=== PATIENT | female | born 1990 | race Caucasian/White ===

== ENCOUNTER 2024-06-30 21:11 | Observation (INO) | payer OTHER, SELFPAY ==
[2024-06-30] VITALS (7 sets, daily range): BP systolic 145–194; BP diastolic 112–137; BMI 21.5; BMI 19.9
[2024-06-30 17:09] LABS: ALT (SGPT) 37 U/L (0-35); AST (SGOT) 91 U/L (14-36); Albumin 4.4 g/dl (3.5-5.0); Alkaline Phosphatase 109 U/L (38-126); Blood Urea Nitrogen 4 mg/dl (7-17); Calcium 9.5 mg/dl (8.4-10.2); Carbon Dioxide 29 mmol/L (22-30); Chloride 93 mmol/L (98-107); Estimated Creatinine Clearance 85 ml/min; Glucose 141 mg/dl (70-99); Potassium 2.6 mmol/L (3.5-5.1); Sodium 130 mmol/L (135-145); Total Bilirubin 1.5 mg/dl (0.2-1.3); Total Protein 6.9 g/dl (6.3-8.2); eGFR > 60.00
--- NOTE | 2024-06-30 17:15 | ED.GENMED ---
History of Present Illness
General
Chief Complaint: Seizure
Time Seen by Provider: 06/30/24 17:00
History of Present Illness
History of Present Illness:
HPI: The patient presents due to seizure-like activity x 2 as she was picking up her daughter. She states she had a seizure approximately 6 months ago because 'her levels were off'. She states she has not used benzos in about 6 months. She states
that she does not drink alcohol much but when I clarified this with her she states she did not drink yesterday or today but drink '2 beers' each of the preceding 2 days.
EXAM:
GENERAL: Well appearing in no distress
HEENT: Moist oral mucosa
CARDIOVASCULAR: No murmurs, tachycardic heart rate, regular rhythm, No chest wall tenderness
PULMONARY: No respiratory distress, breath sounds are clear and equal
ABDOMEN: Soft with no peritoneal signs, no tenderness
NEUROLOGIC: Excellent strength all extremities, no coordination deficits, somewhat tremulous
PSYCHIATRIC: Appropriate mental status, normal insight and judgement
EXTREMITIES: Nontender, no edema, moves all extremities equally
SKIN: No rash, no lesions
TIME OF INITIAL ENCOUNTER: 5 PM
NUMBER AND COMPLEXITY OF PROBLEMS ADDRESSED AT THE ENCOUNTER
� Chronic conditions affecting care: Has had seizure in the past
� Acute Exacerbation and/or Progression of Chronic Illness: This is an acute but recurring problem
� Differential Diagnosis includes: Alcohol withdrawal seizure, benzo withdrawal seizure, seizure disorder exacerbation, electrolyte abnormality
AMOUNT AND/OR COMPLEXITY OF DATA TO BE REVIEWED AND ANALYZED
� I performed an independent evaluation of and my interpretation is:
EKG: Sinus 129, QTc [address]:
X-rays:
Laboratory Studies: The patient's potassium was 2.6, total bili, AST and ALT are all slightly elevated
Other:
� Review of other/old records: The patient had a seizure in 2021 and at that time head CT was negative
� Clinical information was obtained by an independent historian: EMS
� Prescriptions/Medications Considered but not given:
� Further testing considered but not performed: Considered CT imaging of the brain however the patient had CT imaging in the setting of the seizure 2 years ago which was unremarkable
RISK OF COMPLICATIONS AND/OR MORBIDITY OR MORTALITY OF PATIENT MANAGEMENT
� Social determinants of health affecting care:
� Discussion with other providers: I discussed case with Dr. Domo Pfeiffer as patient strongly prefers outpatient management. However after discussion with him, he recommends the patient stay in the hospital. I also notified to
Dr. Baires for admission.
� Escalation of care including admission/observation vs risk of discharge considered: Given initial tachycardia along with tremulous appearance, IV fluids and benzos were ordered. Hypokalemia noted�ordered IV and oral potassium.
Heart rate has somewhat improved but still remains around 120 after benzos given. She overall feels improved. Suspect alcohol withdrawal seizure however the patient denies any significant use of alcohol recently.
Past History
Past History
ED Past Medical History: HTN, Seizures (1 previous seizure) and Psychiatric (anxiety, depression); Negative IDDM or NIDDM
ED Past Surgical History: and Other (Breast augmentation, )
Social History
Tobacco: Former smoker
Alcohol: Occasional
Drug: None
Personal: Single
Living: with family
Phy Exam
Physical Exam
Physical Exam:
See HPI
Course
Orders/Labs/Results
Orders:
Orders
06/30/24 16:40
Electrocardiogram (*1) Urgent
Reason for Study: QTc Monitoring
EKG- Treatment ONCE
06/30/24 16:41
Alcohol Urgent
Complete Blood Count/With Diff Urgent
Comprehensive Metabolic Panel Urgent
Magnesium Urgent
Comment: ADD ON
06/30/24 17:13
Potassium Chloride Powder [Klor-Con] 20 meq PO NOW STA
06/30/24 17:14
0.9% Sodium Chloride 1000 ml [Nss] 1,000 ml IV BOLUS
Lorazepam [Ativan] 1 mg IV NOW STA
06/30/24 17:15
Add On- LAB Urgent
Tests Added?: alcohol
Urine Drug Abuse Screen Urgent
Date Specimen was Collected: 06/30/24
Time Specimen was Collected: 18:45
06/30/24 17:20
Potassium Chloride [KCl] 40 meq 0.9% Sodium Chloride 250 ml [Nss] 250 ml IV NOW
06/30/24 17:25
Add On- LAB Urgent
Tests Added?: magnesium
06/30/24 18:56
Lorazepam [Ativan] 1 mg IV NOW STA
Abnormal Lab Results
06/30/24
16:41
RBC 3.70 L 10^6/uL
(4.20-5.40)
MCV 100.0 H fL
(81.0-99.0)
MCH 37.3 H pg
(27.0-31.0)
MCHC 37.3 H g/dL
(33.0-37.0)
RDW 10.7 L %
(11.5-14.5)
Plt Count 124 L 10^3/uL
(130-400)
Absolute Lymphs (auto) 0.3 L 10^3/uL
(1.2-3.4)
Absolute Monos (auto) 0.7 H 10^3/uL
(0.1-0.6)
Neutrophils % 85.6 H %
(42.2-75.2)
Lymphocytes % 4.1 L %
(20.5-51.1)
Sodium 130 L mmol/L
(135-145)
Potassium 2.6 L* mmol/L
(3.5-5.1)
Chloride 93 L mmol/L
(98-107)
BUN 4 L mg/dl
(7-17)
Glucose 141 H mg/dl
(70-99)
Total Bilirubin 1.5 H mg/dl
(0.2-1.3)
AST 91 H U/L
(14-36)
ALT 37 H U/L
(0-35)
06/30/24 16:41
06/30/24 16:41
Vital Signs
Initial and Last Documented VS:
Initial Vital Signs
Temp Pulse Resp BP Pulse Ox
98.3 F 143 22 182/128 96
06/30/24 16:32 06/30/24 16:32 06/30/24 16:32 06/30/24 16:32 06/30/24 16:32
Last Documented Vital Signs
Temp Pulse Resp BP Pulse Ox
98.3 F 122 15 171/126 98
06/30/24 16:32 06/30/24 18:52 06/30/24 18:52 06/30/24 18:00 06/30/24 18:15
*Critical Care Note
Total Time (30-74mins, 75-104mins- exclusive of procedures): Not Applicable
ED Attending Note
-
Portions of this chart may have been created with voice recognition software.� Occasional wrong word or��sound alike� substitutions may have occurred due to the inherent limitations of voice recognition software.
Discharge Plan
Departure
Patient Disposition: Admit
Date of Disposition: 06/30/24
Time of Disposition: 19:58
Presentation/result/management discussed w/ accepting MD/DO: Hospitalist
Discharge Problem:
Seizure
Prescriptions:
No Action
norethindrone-e.estradiol-iron [Sera Fe 1.5/30 (28)] 1.5 mg-30 mcg (21)/75 mg (7) Tablet
1 tab PO DAILY
Referrals:
NONE,* [Family Provider] -
Interventions
Interventions:
*General Assessment Last Done: 06/30/24 16:55
*Neglect/Abuse Screening Last Done: 06/30/24 16:55
ED- Fall Risk Assessment Last Done: 06/30/24 16:55
ED- Cardiac Assessment Last Done: 06/30/24 16:55
ED- Neurological Assessment Last Done: 06/30/24 16:55
ED- Pulmonary Assessment Last Done: 06/30/24 16:55
Discharge Date and Time
Print Language: BRITISH
[2024-06-30] MEDS: KLOR-CON 20 MEQ PO (17:22)
[2024-06-30] MEDS: NSS 1000 IV (17:22)
[2024-06-30] MEDS: ATIVAN 1 MG IV ×3 (17:22→22:48)
[2024-06-30] MEDS: KCL 270 MEQ IV (17:28)
[2024-06-30 18:08] LABS: % Basophils 0.4 % (0-2); % Eosinophils 0.3 % (0-6); % Immature Granulocytes 0.4 % (0-0.5); % Lymphocytes 4.1 % (20.5-51.1); % Monocytes 9.2 % (1.7-9.3); % Neutrophils 85.6 % (42.2-75.2); Absolute Lymphocytes 0.3 10^3/uL (1.2-3.4); Absolute Monocytes 0.7 10^3/uL (0.1-0.6); Hemoglobin 13.8 g/dL (12.0-16.0); Mean Corp Hgb Conc. 37.3 g/dL (33.0-37.0); Mean Corpuscular Hgb 37.3 pg (27.0-31.0); Mean Platelet Volume 9.8 fL (7.4-10.4); Nucleated Red Blood Cells % 0 %; Platelet Count 124 10^3/uL (130-400); Red Cell Dist. Width 10.7 % (11.5-14.5); White Blood Cell Count 7.1 10^3/uL (4.8-10.8)
[2024-06-30 18:12] LABS: Alcohol None Detected; Magnesium 1.8 mg/dl (1.6-2.3)
--- NOTE | 2024-06-30 20:34 | HPS.HSE ---
Family Physician
-
Family Physician: * NONE
Chief Complaint
-
seizure
History of Present Illness
33-year-old female past medical history of seizures, anxiety/depression, ADHD, presenting with seizure-like activity twice as she was picking up her daughter. She states that she was washing the dishes when she felt weak and then went into the
bathroom to take a shower and had to sit down. Later when she was picking up her child from school she was witnessed to have 2 syncopal episodes first 1 lasting a minute and the second one lasting on 20 seconds. She is not sure if shaking
movements were noted. She denies any symptoms currently. She denies headache, numbness or tingling, focal weakness, blurry vision.
She has been having profuse watery diarrhea for the past 3 days. She had an episode of vomiting today. She denies any fevers or chills. She denies any abdominal pain. Denies eating any restaurant food or food from outside.
She drinks 1-2 drinks of beer or wine usually during the weekends. She does vape sometimes. She denies any other drugs.
Patient had her first seizure 2 years ago and was recommended to start antiepileptic treatment which she started but she did not feel good on the medicine so stopped taking it. She had another seizure a year ago and states that antiepileptic
therapy was recommended but she had never started it. She was also taking Klonopin for anxiety but she stopped taking this a year ago.
No family history of seizures.
Medical History
Past Medical History
Past Medical History: Reports Other ( seizures, anxiety/depression, ADHD)
Past Surgical History: Reports Other (Breast augmentation, ,)
Social History
Tobacco: Vaping
Alcohol: Occasional
Drug: None
Family History
Family History: Not pertinent
Allergies / Home Medications
Allergies reflects when Allergies were last updated in [facility].
Home Medications with original date entered in [facility]
Allergy/Medication List:
Allergies
Allergy/AdvReac Type Severity Reaction Status Date / Time
No Known Allergies Allergy Verified 09/27/23 18:35
Home Medications
norethindrone 1.5 mg-ethinyl estradiol 30 mcg(21)/iron 75 mg(7) tablet (Sera Fe 1.5/30 (28)) 1 tab PO DAILY 06/30/24
Review of Systems
-
History Source: Patient
A 12 point ROS was completed and negative except as noted: Yes
Constitutional: Reports No Symptoms
EENT: Reports No Symptoms
Respiratory: Reports No Symptoms
Cardiac: Reports No Symptoms
Abdomen/GI: Reports See HPI
: Reports No Symptoms
Musculoskeletal: Reports No Symptoms
Skin: Reports No Symptoms
Neurological: Reports See HPI
Endocrine: Reports No Symptoms
Hematologic/Lymphatic: Reports No Symptoms
Psych: Reports No Symptoms
Physical Exam
Vital Signs
Vital Signs
Temp Pulse Resp BP Pulse Ox
98.3 F 122 15 171/126 98
06/30/24 16:32 06/30/24 18:52 06/30/24 18:52 06/30/24 18:00 06/30/24 18:15
Physical Exam
General: Well Developed, Well Nourished and No Apparent Distress
HEENT: NormoCephalic, Moist mucous membranes and Atraumatic
Respiratory: Clear
Cardiac: S1/S2 and Regular Rhythm; No Murmur or Rub
GI: Soft, Non Tender, Non Distended and Normal Bowel Sounds; No Organomegaly
Rectal: Deferred by Provider
Musculoskeletal: No Clubbing, No Cyanosis and No Edema
Skin: No Rash
Neuro: Nonfocal/grossly intact
Laboratory Results
-
06/30/24 16:41
06/30/24 16:41
Laboratory Results
Total Bilirubin 1.5 mg/dl (0.2-1.3) H 06/30/24 16:41
AST 91 U/L (14-36) H 06/30/24 16:41
ALT 37 U/L (0-35) H 06/30/24 16:41
Alkaline Phosphatase 109 U/L (38-126) 06/30/24 16:41
Data Reviewed
-
Lab Data: Labs Reviewed by me
Old Records: Reviewed
Impression/Plan
-
IMPRESSION:
PLAN:
# Recurrent seizures
-Ativan, IV fluids given
-Needs to start antiepileptic treatment that she would be compliant with
-UDS pending
-Neurology consulted
# Hypokalemia secondary to severe acute diarrhea
-IV potassium repletion
-Magnesium level normal
# QTc prolongation secondary to hypokalemia
-QTc 570
-Monitor with potassium repletion
# Acute diarrhea
-Seems to be improving
-Check stool studies, C. difficile, diarrhea if recurrent
# Mild transaminitis likely secondary to alcohol
-monitor
Alcohol user
-Doubt to be cause of seizures
-Alcohol level pending
-No signs of withdrawal
Vaping history
Full code
DVT prophylaxis�heparin
Regular diet
[2024-06-30 21:23] LABS: Amphetamines Positive (Negative); Barbiturates Negative (Negative); Benzodiazepines Negative (Negative); Buprenorphine Negative (Negative); Cocaine Negative (Negative); Marijuana Negative (Negative); Methadone Negative (Negative); Methamphetamines Negative (Negative); Opiates Negative (Negative); Phencyclidine Negative (Negative); Tricyclic Antidepressants Negative (Negative)
[2024-06-30 21:34] LABS: Fentanyl, Urine Negative (Negative)
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
[2024-06-30] MEDS: NSS (PRESERVATIVE FREE) 0.5 ML IV (22:47)
[2024-06-30] MEDS: FLUSH (NSS) 1 FLUSH IV (22:48)
[2024-06-30] MEDS: NICODERM TRANSDERMAL 14 MG TRANSDERM (23:08)
[2024-07-01 00:38] VITALS: BP 180/116
[2024-07-01 00:44] VITALS: BP 152/105
[2024-07-01] MEDS: ATIVAN 1 MG PO ×2 (00:46→03:05)
[2024-07-01 03:03] VITALS: BP 146/100
--- NOTE | 2024-07-01 05:17 | PTCARENOTE ---
Throughout shift, pt removed monitor and storage bin tender. This RN informed pt of importance of monitor. Pt stated multiple times, 'I will be leaving as soon as someone answers me', 'I will just have the doctor call me' and 'I will be leaving around 4, 7 or
9'. Pt removed monitor and storage bin tender and refused to put back on. CHRO made aware.
--- NOTE | 2024-07-01 07:30 | PTCARENOTE ---
patient asked to leave AMA. physician made aware. patient took her own IV out. this nurse offered the patient a gauze and tape. patient accepted. refused wheelchair to be escorted. left the unit unaccompanied. room checked for any left items
[2024-07-01 08:45] LABS: % Basophils 1.1 % (0-2); % Eosinophils 2.6 % (0-6); % Immature Granulocytes 0.4 % (0-0.5); % Lymphocytes 16.1 % (20.5-51.1); % Monocytes 12.6 % (1.7-9.3); % Neutrophils 67.2 % (42.2-75.2); Absolute Basophils 0.1 10^3/uL (0-0.2); Absolute Eosinophils 0.1 10^3/uL (0-0.7); Absolute Lymphocytes 0.8 10^3/uL (1.2-3.4); Absolute Monocytes 0.6 10^3/uL (0.1-0.6); Absolute Neutrophils 3.1 10^3/uL (1.4-6.5); Hematocrit 33.2 % (37.0-47.0); Hemoglobin 12.2 g/dL (12.0-16.0); Mean Corp Hgb Conc. 36.7 g/dL (33.0-37.0); Mean Corpuscular Hgb 36.9 pg (27.0-31.0); Mean Corpuscular Volume 100.3 fL (81.0-99.0); Mean Platelet Volume 10.4 fL (7.4-10.4); Nucleated Red Blood Cells % 0 %; Platelet Count 121 10^3/uL (130-400); Red Blood Cell Count 3.31 10^6/uL (4.20-5.40); Red Cell Dist. Width 10.9 % (11.5-14.5); White Blood Cell Count 4.7 10^3/uL (4.8-10.8)
[2024-07-01 10:17] LABS: ALT (SGPT) 33 U/L (0-35); AST (SGOT) 79 U/L (14-36); Alkaline Phosphatase 86 U/L (38-126); Blood Urea Nitrogen 3 mg/dl (7-17); Calcium 9.5 mg/dl (8.4-10.2); Carbon Dioxide 30 mmol/L (22-30); Chloride 97 mmol/L (98-107); Estimated Creatinine Clearance 93 ml/min; Glucose 79 mg/dl (70-99); Potassium 2.8 mmol/L (3.5-5.1); Sodium 135 mmol/L (135-145); Total Bilirubin 1.6 mg/dl (0.2-1.3); Total Protein 6.3 g/dl (6.3-8.2); eGFR > 60.00
== END 2024-07-01 07:53 | disposition left against medical advice (07) ==
LOC: 3 WEST ACU 21:11
PROVIDERS: Emergency Medicine; ADMITTING PHYSICIAN Hospitalist; ATTENDING PHYSICIAN Internal Medicine; EMERGENCY PHYSICIAN Emergency Medicine
DX: R56.9 Unspecified convulsions (principal); E87.6 Hypokalemia; I11.9 Hypertensive heart disease without heart failure; F41.9 Anxiety disorder, unspecified; F32.A Depression, unspecified; F90.9 Attention-deficit hyperactivity disorder, unspecified type; R53.1 Weakness; R19.7 Diarrhea, unspecified; R11.10 Vomiting, unspecified; F17.290 Nicotine dependence, other tobacco product, uncomplicated; R94.31 Abnormal electrocardiogram [ECG] [EKG]; R74.01 Elevation of levels of liver transaminase levels
CPT/HCPCS: 80053; 80306; 80307; 82077; 83735; 85025; 93005; 96361; 96374; 96375; 99285; G0378

== ENCOUNTER 2024-10-09 13:20 | Inpatient (IN) | payer OTHER, SELFPAY ==
[2024-10-09] VITALS (30 sets, daily range): BP systolic 96–220; BP diastolic 59–171; BMI 19.8
--- NOTE | 2024-10-09 10:46 | ED.GENMED ---
History of Present Illness
General
Chief Complaint: Seizure
Source: patient and significant other
Exam Limitations: none
Time Seen by Provider: 10/09/24 10:43
History of Present Illness
History of Present Illness:
33-year-old female who complains of seizure that occurred last night. Reportedly her children noticed seizure activity and called the patient's boyfriend. The patient today just wanted to get checked out. She does report she has had similar
events in the past. She recently has had diarrhea and poor appetite and has not really eaten much in the last 4 to 5 days. She also states she has not been sleeping over the last several days. She adamantly denies daily alcohol use. States her
last alcohol use was Saturday but denies abuse of alcohol. She also denies any abuse of benzodiazepines. Patient was asked on multiple occasions. Patient states she has had off-and-on abdominal discomfort but today has no abdominal pain. Patient
admits she has not been eating and drinking very much at all. Shortly after history taking, the patient did have a witnessed grand mal seizure. Patient denies fevers. Patient and boyfriend deny any new medications. She denies drug use. She
states she used to vape but quit. The patient does admit that she has been told her blood pressure was high and was told she should be on blood pressure medications. She has not been taking them. She also was advised to take seizure medications
but does not. In addition, she was on Klonopin in past but has not been on it for 6 months
Past History
Past History
ED Past Medical History: HTN, Seizures and Psychiatric (anxiety, depression)
ED Past Surgical History: and Other (Breast augmentation, )
Social History
Tobacco: Former smoker
Alcohol: Occasional
Drug: None
Personal: Single
Living: with family
Phy Exam
Physical Exam
Physical Exam:
CONSTITUTIONAL Patient alert and oriented to person, place and time. Anxious, slightly tremulous. Vital signs reviewed.
HEAD atraumatic, normocephalic.
EYES eyelids normal to inspection, Extraocular muscles intact, Conjunctiva normal, Sclera normal.
NECK normal range of motion, Trachea midline, no jugular venous distention.
RESPIRATORY CHEST No respiratory distress noted, Chest expansion equal, Bilateral breath sounds clear.
CARDIOVASCULAR regular and tachycardic
ABDOMEN abdomen nontender, Bowel sounds normal. No distention.
BACK normal inspection, no obvious deformities
UPPER EXTREMITY range of motion normal, Motor strength normal, no cyanosis, no edema.
LOWER EXTREMITY range of motion normal, Motor strength normal, no cyanosis, no edema.
NEURO Speech normal, No focal motor deficits, [place] coma scale 15, Memory normal, Cranial Nerves intact to screening exam. Normal [id number]. No pronator drift. Normal [id number].
SKIN skin warm, dry
Course
Orders/Labs/Results
Orders:
Orders
10/09/24
Electrocardiogram (*1) Stat
Reason for Study: Chest Pain
Comment: DONE NO ORDER ENTERED
10/09/24 10:43
Urinalysis Reflex To Culture Urgent
Date Specimen was Collected: 10/09/24
Time Specimen was Collected: 11:40
Test Result ONCE
10/09/24 11:05
Drug Screen, Urine [Urine Drug Abuse Screen] Urgent
Date Specimen was Collected: 10/09/24
Time Specimen was Collected: 11:40
10/09/24 11:07
Lorazepam [Ativan] 2 mg .ROUTE .STK-MED ONE
10/09/24 11:09
Lorazepam [Ativan] 1 mg IV NOW STA
10/09/24 11:11
Acetaminophen Urgent
Comment: ADD ON
Alcohol Urgent
Complete Blood Count/With Diff Urgent
Comprehensive Metabolic Panel Urgent
HCG, Serum Qualitative Screen Urgent
Lipase Urgent
Magnesium Urgent
Phosphorus Urgent
Salicylate Urgent
Comment: ADD ON
Venous Blood Gas Urgent
%Oxygen/Room Air: unknown
10/09/24 11:12
CT Head W/o Iv Contrast Stat
Reason For Exam: seizure
10/09/24 11:15
Add On- LAB Urgent
Comments:: in lab
Tests Added?: acetaminophen and aspirin levels
10/09/24 11:16
Electrocardiogram (*1) Stat
Comment: ALREADY DONE IN ED
10/09/24 11:50
Labetalol HCl [Trandate] 20 mg .ROUTE .STK-MED ONE
10/09/24 11:52
Labetalol HCl [Trandate] 10 mg IV NOW STA
10/09/24 11:55
Lorazepam [Ativan] 1 mg IV NOW STA
10/09/24 11:57
0.9% Sodium Chloride 1000 ml [Nss] 1,000 ml IV BOLUS
10/09/24 12:10
Labetalol HCl [Trandate] 20 mg IV NOW STA
10/09/24 13:13
Admit/Transfer Patient As Directed
Co-Sign Provider:
Level of Care: Inpatient admission
Assign to:: IMU- Intermediate Care
Physician / Group: rosita
Diagnosis: alcohol withdrawal seizures
Reason for Hospitalization: alcohol withdrawal seizures
Expected length of stay greater than two midnights?: Yes
ELOS- Estimated Length of Stay in days: 2
I certify the patient meets the requirements for IP care: Yes
Code Status As Directed
Resuscitation Status: Full Code
PRN Pain Medication Management As Directed
May give lesser potent ordered pain med per pt: Yes
preference::
Protocol:: Medication orders for pain may be administered in a
manner that supports deferring to patient preference
when the pt is:
- Requesting an ordered lesser potent pain medication.
Least to most potent pain medications are defined
as: acetaminophen < NSAID < tramadol < opioids
(morphine, oxycodone, hydromorphone).
- Requesting a lesser dose of the same medication IF
ORDERED.
- Requesting a less intrusive route of administration
if both routes are prescribed by the provider (PO <
IV).
10/09/24 13:15
Labetalol HCl [Trandate] 400 mg Empty Viaflex Container 100 ml [Viaflex Empty Container] 0 ml IV PER PROTOCOL
Initial dose in mg/min, then titrate:: 1
Titrate to keep:: BP < 180/105 mmHg
Titrate by mg/min:: 0.5 mg/min
Frequency of titrations (minutes):: 15
Additional Titration Instructions:: Bolus with 20 mg IV every 15 minutes PRN dose increase
Maximum dose in mg/min:: 4
Begin to taper infusion when:: Remained at goal for 4hrs
Taper by mg/min:: 0.5 - 1 mg/min
Frequency of taper (minutes) if patient maintains goal:: 30
Taper to off?: Yes
If infusion off & no longer maintaining goal:: Contact Provider
10/09/24 13:16
Potassium Chloride [KCl] 40 meq 0.9% Sodium Chloride 250 ml [Nss] 250 ml IV NOW
10/10/24 08:00
Pantoprazole [Protonix IV] 40 mg IV DAILY
Abnormal Lab Results
10/09/24
11:11
MCH 36.7 H pg
(27.0-31.0)
MCHC 37.6 H g/dL
(33.0-37.0)
RDW 11.0 L %
(11.5-14.5)
Absolute Lymphs (auto) 0.5 L 10^3/uL
(1.2-3.4)
Absolute Monos (auto) 0.8 H 10^3/uL
(0.1-0.6)
Neutrophils % 76.7 H %
(42.2-75.2)
Lymphocytes % 8.9 L %
(20.5-51.1)
Monocytes % 13.0 H %
(1.7-9.3)
VBG HCO3 31.2 H mmol/L
(22-27)
Sodium 129 L mmol/L
(135-145)
Potassium 3.0 L mmol/L
(3.5-5.1)
Chloride 83 L mmol/L
(98-107)
BUN 6 L mg/dl
(7-17)
Calcium 10.5 H mg/dl
(8.4-10.2)
Total Bilirubin 2.0 H mg/dl
(0.2-1.3)
AST 119 H U/L
(14-36)
ALT 59 H U/L
(0-35)
Alkaline Phosphatase 140 H U/L
(38-126)
Albumin 5.2 H g/dl
(3.5-5.0)
Salicylates < 1.0 L mg/dl
(2.0-20.0)
Acetaminophen < 10 L ug/ml
(10-30)
10/09/24 11:11
10/09/24 11:11
Vital Signs
Initial and Last Documented VS:
Initial Vital Signs
Temp Pulse Resp BP Pulse Ox
99.0 F 98 16 190/125 98
10/09/24 10:35 10/09/24 10:35 10/09/24 10:35 10/09/24 10:35 10/09/24 10:35
Last Documented Vital Signs
Temp Pulse Resp BP Pulse Ox
99.0 F 105 21 132/97 97
10/09/24 10:35 10/09/24 15:15 10/09/24 14:15 10/09/24 14:40 10/09/24 14:45
MDM/Problems Addressed
Differential Diagnosis Includes:
Acute severe alcohol withdrawal, acute severe benzodiazepine withdrawal, seizure disorder, hypertensive emergency
MDM/Problems Addressed:
Acute seizure, hypertensive emergency
*Radiology
Radiology exam reviewed: preliminary read by ED provider (No obvious bleeding) and radiology read reviewed
*Pulse Oximetry
Patient hypoxic: no
*EKG
Interpreted by ED Provider?: Yes
Interpretation: abnormal
Rate: tachycardiac
Rhythm: sinus
Interval: normal interval
Ischemia: non-specific ST changes
*Student Ministry Pastor Interpretation
Rate: tachycardiac
Interpretation: abnormal
Rhythm: sinus
*Critical Care Note
Total Time (30-74mins, 75-104mins- exclusive of procedures): 60 minutes (80 minutes)
Data Reviewed
Review of Other/Old Records Reveals: Labs (Prior labs reviewed. Has had sodium of 125 in the past) and Progress Notes (Previous history and physical reviewed. Similar presentation in June)
Source: patient and other (Boyfriend)
Patient Management
Discussion with other providers: Hospitalist, Word Processor Operator (Neurology) and Radiologist (Dr. Mirza)
Escalation/DeEscalation of care consider admission/obs:
33-year-old female presents with seizure. Had a seizure here in the emergency department that lasted less than 1 minute and did have a postictal phase. It was a grand mal seizure. Her airway was maintained and I was called to the bedside
emergently. She did have a postictal phase but now has recovered. The patient has been noncompliant with advice with regard to her blood pressure and with regard to antiepileptics. In light of her history, seizure, tachycardia and hypertension,
strongly consider alcohol withdrawal however patient adamantly denies alcohol abuse. Blood pressure improving with IV labetalol. Initiate labetalol infusion. Given benzodiazepines. Currently seizure-free but will monitor closely. Case was
discussed with radiology. Case was discussed with neurology. Question whether her CT scan changes could be related to chronic alcohol abuse or chronic uncontrolled hypertension. Her previous vital signs were reviewed and she was significantly
hypertensive on previous visit. Admit to ICU
Update Note
Update Note:
Reassessed the patient multiple times. Called to reevaluate the patient as the patient wanted to leave. She is not oriented to time and cannot name the year. She is somewhat of confused and tremulous. I feel strongly that she is not competent to
make a good decision at this time. Given a dose of Ativan. Her boyfriend was able to convince her to stay. Hospitalist called again the bedside as well. Likely to proceed with sedation. Await ICU bed.
ED Attending Note
-
Portions of this chart may have been created with voice recognition software.� Occasional wrong word or��sound alike� substitutions may have occurred due to the inherent limitations of voice recognition software.
Discharge Plan
Departure
Patient Disposition: Admit
Date of Disposition: 10/09/24
Time of Disposition: 12:24
Admit to: ICU and IMU
Presentation/result/management discussed w/ accepting MD/DO: Hospitalist
Discharge Problem:
Seizure, Hypertensive emergency, Possible alcohol withdrawal
Interventions
Interventions:
*Risk Screen - Suicide Last Done: 10/09/24 10:35
*Neglect/Abuse Screening Last Done: 10/09/24 10:35
ED- Cardiac Assessment Last Done: 10/09/24 11:17
ED- Neurological Assessment Last Done: 10/09/24 11:17
ED- Pulmonary Assessment Last Done: 10/09/24 11:17
[2024-10-09] MEDS: ATIVAN 1 MG IV ×4 (11:10→15:11)
[2024-10-09 11:24] LABS: Venous Blood Gas B.E. 5.7 mmol/L (-4 to +4); Venous Blood Gas HCO3 31.2 mmol/L (22-27); Venous Blood Gas O2 Sat % 69.5 %; Venous Blood Gas pCO2 47 mmHg (35-48); Venous Blood Gas pH 7.43 (7.32-7.43); Venous Blood Gas pO2 38 mmHg (30-50)
[2024-10-09 11:42] LABS: HCG, Serum Qualitative Screen Negative
[2024-10-09 11:46] LABS: ALT (SGPT) 59 U/L (0-35); AST (SGOT) 119 U/L (14-36); Acetaminophen < 10 ug/ml (10-30); Albumin 5.2 g/dl (3.5-5.0); Alkaline Phosphatase 140 U/L (38-126); Blood Urea Nitrogen 6 mg/dl (7-17); Calcium 10.5 mg/dl (8.4-10.2); Carbon Dioxide 30 mmol/L (22-30); Chloride 83 mmol/L (98-107); Estimated Creatinine Clearance 84 ml/min; Glucose 99 mg/dl (70-99); Lipase 199 U/L (23-300); Magnesium 1.8 mg/dl (1.6-2.3); Salicylate < 1.0 mg/dl (2.0-20.0); Sodium 129 mmol/L (135-145); eGFR > 60.00
[2024-10-09 11:48] LABS: Alcohol None Detected
[2024-10-09] MEDS: TRANDATE 10 MG IV (11:52)
[2024-10-09] MEDS: NSS 1000 IV ×2 (12:04→21:06)
[2024-10-09] MEDS: TRANDATE 20 MG IV (12:15)
[2024-10-09 12:46] LABS: % Basophils 0.7 % (0-2); % Eosinophils 0.5 % (0-6); % Immature Granulocytes 0.2 % (0-0.5); % Lymphocytes 8.9 % (20.5-51.1); % Neutrophils 76.7 % (42.2-75.2); Absolute Lymphocytes 0.5 10^3/uL (1.2-3.4); Absolute Monocytes 0.8 10^3/uL (0.1-0.6); Absolute Neutrophils 4.7 10^3/uL (1.4-6.5); Hematocrit 41.7 % (37.0-47.0); Hemoglobin 15.7 g/dL (12.0-16.0); Mean Corp Hgb Conc. 37.6 g/dL (33.0-37.0); Mean Corpuscular Hgb 36.7 pg (27.0-31.0); Mean Corpuscular Volume 97.4 fL (81.0-99.0); Mean Platelet Volume 9.8 fL (7.4-10.4); Nucleated Red Blood Cells % 0 %; Platelet Count 138 10^3/uL (130-400); Red Blood Cell Count 4.28 10^6/uL (4.20-5.40); White Blood Cell Count 6.1 10^3/uL (4.8-10.8)
--- NOTE | 2024-10-09 13:18 | HPS.HSE ---
Family Physician
-
Family Physician: Philippe Palmer
Chief Complaint
-
seizures
History of Present Illness
33-year-old female past medical history of seizures, anxiety/depression, ADHD presenting with seizure yesterday and today. She was at home in bed and her boyfriend caught the tail end of her having a seizure. He thinks it may have lasted a few
minutes. Her upper extremities were shaking. After the episode she was unresponsive. She had a similar seizure episode yesterday.
Patient states that she drinks a few drinks of alcohol on the weekends occasionally during social events. She appears to be in denial about how much alcohol she is drinking. Her boyfriend is concerned that she may be drinking more. Her last
alcohol drink was 2 days ago.
Patient came to the emergency room in June for seizures but it appears that she left the ER before being admitted at that time.
As per my prior documentation from prior admission she had her first seizure 2 years ago and was recommended to start antiepileptic treatment she started but she did not feel good on the medicine so she stopped taking it. She had another seizure a
year ago and states that antiepileptic therapy was recommended but she never started.
She was also taking Klonopin for anxiety and as per PDMP her last Klonopin prescription was in November.
Patient is also been complaining of abdominal pain for the past 4 days. She has been having watery diarrhea up to 20 times a day for the past several days but denies any diarrhea today. She has been eating less and has lost significant amount of
weight. She did have some nausea but denies vomiting.
Patient has been feeling depressed recently and feels like she is not able to spend enough time with her children. She has never seen a psychiatrist. She denies any suicidal thoughts.
She denies any headache, blurry vision, numbness or tingling, focal weakness, difficulty speaking or swallowing, balance dysfunction.
She vapes but does not use any other drugs.
No family history of seizures.
Medical History
Past Medical History
Past Medical History: Reports Other (seizures, anxiety/depression, ADHD )
Past Surgical History: Reports Other (Breast augmentation, ,))
Social History
Tobacco: Non-smoker
Alcohol: Occasional
Drug: Other (vaping )
Family History
Family History: Not pertinent
Allergies / Home Medications
Allergies reflects when Allergies were last updated in [facility].
Home Medications with original date entered in [facility]
Allergy/Medication List:
Allergies
Allergy/AdvReac Type Severity Reaction Status Date / Time
No Known Allergies Allergy Verified 10/09/24 10:38
Home Medications
No Meds [No Current Medications] 10/09/24
Review of Systems
-
History Source: Patient
A 12 point ROS was completed and negative except as noted: Yes
Constitutional: Reports No Symptoms
EENT: Reports No Symptoms
Respiratory: Reports No Symptoms
Cardiac: Reports No Symptoms
Abdomen/GI: Reports See HPI
: Reports No Symptoms
Musculoskeletal: Reports No Symptoms
Skin: Reports No Symptoms
Neurological: Reports No Symptoms
Endocrine: Reports No Symptoms
Hematologic/Lymphatic: Reports No Symptoms
Psych: Reports No Symptoms
Physical Exam
Vital Signs
Vital Signs
Temp Pulse Resp BP Pulse Ox
99.0 F 109 21 150/110 98
10/09/24 10:35 10/09/24 12:40 10/09/24 12:40 10/09/24 12:40 10/09/24 12:31
Physical Exam
General: Well Developed, Well Nourished and No Apparent Distress
HEENT: NormoCephalic, Moist mucous membranes and Atraumatic
Respiratory: Clear
Cardiac: S1/S2 and Regular Rhythm; No Murmur or Rub
GI: Soft, Non Tender, Non Distended and Normal Bowel Sounds; No Organomegaly
Rectal: Deferred by Provider
Musculoskeletal: No Clubbing, No Cyanosis and No Edema
Skin: No Rash
Neuro: Nonfocal/grossly intact and Other (tremulous )
Laboratory Results
-
10/09/24 11:11
10/09/24 11:11
Laboratory Results
Total Bilirubin 2.0 mg/dl (0.2-1.3) H 10/09/24 11:11
AST 119 U/L (14-36) H 10/09/24 11:11
ALT 59 U/L (0-35) H 10/09/24 11:11
Alkaline Phosphatase 140 U/L (38-126) H 10/09/24 11:11
Lipase 199 U/L (23-300) 10/09/24 11:11
Data Reviewed
-
Lab Data: Labs Reviewed by me
Old Records: Reviewed
Impression/Plan
-
IMPRESSION:
PLAN:
# Recurrent seizures likely secondary to alcohol withdrawal
# Alcohol use disorder
# Possibly underlying epilepsy
-Patient tremulous and tachycardic clearly consistent with alcohol withdrawal
-CT head shows mild to moderate symmetrical low-attenuation in the periventricular white matter of the frontal lobes which could be white matter leukoaraiosis, demyelinating disease, vasculitis or Lyme's disease
-Alcohol level negative
-Tylenol, salicylates negative
-UDS pending
-Alcohol withdrawal protocol
-Thiamine and folate
-IV fluids
-Neurology consulted
# Hypertensive urgency
-EKG shows sinus tachycardia
-IV labetalol given twice but blood pressure increasing again
-Labetalol drip started
# Hypokalemia secondary to diarrhea
# Diarrhea/abdominal pain likely secondary alcoholic gastritis
-Lipase unremarkable
-Diarrhea has resolved
-Magnesium level normal
-Potassium repletion
-Protonix 40 daily
-Zofran
-Advance diet as tolerated
# Transaminitis secondary to alcohol
-Continue to monitor
# Untreated anxiety/depression
# History of ADHD
-Psychiatry consulted
Vaping history
-Currently vapes
Full code
DVT prophylaxis�heparin
Regular diet
[2024-10-09] MEDS: TRANDATE 80 MG IV (13:38)
--- NOTE | 2024-10-09 14:14 | CON.NEURO ---
Neuro Assessment/Plan
Assessment
Abrupt onset change in mental status with suggested medical noncompliance.
The patient's bilateral highly dilated pupils are suggestive of toxic exposure of unknown type. It is possible that the toxic exposure led to recurrent spells.
Plan
Initiate levetiracetam 1000 mg twice a day
Monitor for toxin withdrawal
Consider additional blood work for metabolic abnormalities.
Consider MRI of brain as outpatient
Consider EEG as outpatient
Remediate hypertension
Will follow as needed.
Consultation
Order
Date of Consultation: 10/09/24
Requesting Provider:
Reason for Consult:
Subjective/Objective
Subjective Data
Date of Service: October 09, 2024
Patient returned to this hospital's emergency department with described change in mental status. The patient's self provided history and history obtained from professional medical providers are disparate.
By report, the patient has been experiencing approximately 3 episodes of seizure-like activity within the past 2-1/2 years. These episodes are not identical and the patient has in the past been advised to initiate antiseizure medication. After
initiating such medication, the patient self discontinued leading to a second seizure in approximately 2022.
Of concern to the patient are sxs of abdominal pain, has not eaten x 4 days, mild ALCARAZ prior to seizure. Pt's brother witnessed pt shaking yesterday around 18:00 x 20 minutes approximately approximately 24 hours prior to presenting to this hospital's
emergency department.
Pt denies loss of incontinence/bladder control during episodes. Pt reports tongue biting during 2nd episode of seizure, however not during any other episodes. No other associated symptoms. No known modifying factors. Of note is that the patient
was found to have significant hypertension during her presentation at this emergency department.
Objective Data
Vital Signs
Temp Pulse Resp BP Pulse Ox
37.2 C 123 34 160/110 97
10/09/24 10:35 10/09/24 13:45 10/09/24 13:45 10/09/24 13:38 10/09/24 13:20
Lab Results
10/09/24 11:11
10/09/24 11:11
Sodium 129 mmol/L (135-145) L 10/09/24 11:11
Potassium 3.0 mmol/L (3.5-5.1) L 10/09/24 11:11
BUN 6 mg/dl (7-17) L 10/09/24 11:11
Glucose 99 mg/dl (70-99) 10/09/24 11:11
Calcium 10.5 mg/dl (8.4-10.2) H 10/09/24 11:11
Patient Allergies
No Known Allergies Allergy (Verified 10/09/24 10:38)
Review of Systems
-
History Source: Patient
All other systems: Reviewed and negative
EENT: Negative Decreased Vision or Swallowing Difficulty
Respiratory: Negative Trouble Breathing
Cardiac: Negative Chest Pain
Abdomen/GI: Negative Incontinence of Stool
Genitourinary: Negative Incontinence
Musculoskeletal: Negative Back Pain or Neck Pain
Neuro: Negative Dizzy or Headache
Physical Exam
-
General: No Apparent Distress and Appears Stated Age
Eyes: OU Absent Papilledema, Round OU, [place] Conjunctivae and No Ptosis
HEENT: Anicteric and Moist Mucous Membranes
Neck: Full Range of Motion
Respiratory: No Dyspnea
Cardiac: No JVD
GI: Non-distended
Skin: Other (Numerous ecchymoses)
Extremities: No Clubbing, No Cyanosis and No Edema
Psych: Negative Intact Judgement/Insight
Extended Neurological Exam
Mood & Affect: Anxious
Attention Span & Concentration: Awake, Alert, Interactive and Moderate Difficulty with 2 Step Request
Memory: Reduced (For the year for which she gives variable answers), Unable to Recall Personal History and Vague
Tremor: Head Tremor Absent, Distal, Amplitude (Low), Variable and With Action; Negative Hand Tremor Absent or At Rest
Speech: Quality Unremarkable and Quantity Unremarkable
Cranial Nerve II: Left Eye: Pupillary Reactivity Unremarkable and Visual [place] Intact; Negative Pupillary Size Unremarkable (4 mm)
Cranial Nerve II: Right Eye: Pupillary Reactivity Unremarkable and Visual [place] Intact; Negative Pupillary Size Unremarkable (4 mm)
Cranial Nerves III, IV, : Extraocular Movement: Extraocular Movement Full in all Directions
Cranial Nerve VII: Facial Symmetry: Normal Facial Symmetry
Cranial Nerve VIII: Hearing: Unremarkable Hearing to Normal Conversational Volume
Cranial Nerves IX, X: Palate Movement: Palate Elevation Symmetric
Cranial Nerve XI: Shoulder Shrug: Unremarkable
Cranial Nerve XII: Tongue Protusion: Midline
Muscle Strength, Overall: Full Throughout
Muscle Bulk & Tone: Bulk Unremarkable and Tone Unremarkable
Pronator Drift: No Drift in Upper Extremities
Deep Tendon Reflexes: Unremarkable Throughout
Touch Sensation: Unremarkable
Coordination: [id number] Testing Unremarkable
Babinski Sign: Absent Bilaterally
Data Reviewed
-
CT Head: Report Reviewed and Image Reviewed
Labs: Report Reviewed
Reviewed with: Physician, Nurse Practioner and Patient
Old Records: Summarized
Medications
-
Active Medications
Generic Name Dose Route Start Last Admin
Trade Name Freq PRN Reason Stop Dose Admin
Folic Acid 1 mg 10/10/24 08:00
Folic Acid 1 Mg Tablet PO 11/07/24 07:59
DAILY TENISHA
Labetalol HCl 400 mg/ Device 80 mls @ 0 mls/hr 10/09/24 13:15 10/09/24 13:38
IV 80 mls
PER PROTOCOL TENISHA Administration
Protocol
Per Protocol
Potassium Chloride 40 meq/ 270 mls @ 67.5 mls/hr 10/09/24 13:16
Sodium Chloride IV 10/09/24 17:15
NOW STA
Folic Acid 1 mg/ Sodium 50.2 mls @ 200.8 mls/hr 10/09/24 13:21
Chloride IV 12/13/24 13:20
DAILYPRN PRN
if NPO
Lorazepam 1 mg 10/09/24 13:21
Lorazepam 1 Mg Tablet PO 11/06/24 13:20
Q2HPRN PRN
MSAS 5-7
Lorazepam 1 mg 10/09/24 13:21
Lorazepam 2 Mg/Ml Vial IV 11/06/24 13:20
Q1HPRN PRN
MSAS 8-11
Lorazepam 2 mg 10/09/24 13:21
Lorazepam 2 Mg/Ml Vial IV 11/06/24 13:20
Q1HPRN PRN
MSAS > 11
Pantoprazole Sodium 40 mg 10/10/24 08:00
Pantoprazole Sodium 40 Mg/10 Ml Vial IV 11/07/24 07:59
DAILY TENISHA
Sodium Chloride 0 ml 10/09/24 13:21
Sodium Chloride 0.9% (Preservative Free) 10 Ml Vial IV 11/06/24 13:20
PRN PRN
To dilute IV Ativan
Protocol
Sodium Chloride 0 flush 10/09/24 14:00
Sodium Chloride 0.9% (Flush) Syringe IV 11/06/24 13:59
PER PROTOCOL TENISHA
Thiamine HCl 200 mg 10/09/24 20:00
Thiamine (100 Mg/Ml) 2 Ml Vial IV 10/12/24 08:01
Q12 TENISHA
Thiamine HCl 100 mg 10/12/24 20:00
Thiamine 100 Mg Tablet PO 11/09/24 19:59
BID TENISHA
Home Medications
�Medication �Instructions �Recorded
No Meds [No Current Medications] 10/09/24
Past History
Past History
ED Past Medical History: HTN, Seizures, Psychiatric (anxiety, depression, ADHD) and Other (Recurrent syncope)
ED Past Surgical History: and Other (Breast augmentation, )
Social History
Tobacco: Former smoker
Alcohol: Occasional
Drug: None
Personal: Single
Living: with family
Family History
Family History: Other (Reviewed and noncontributory)
[2024-10-09] MEDS: HALDOL 2.5 MG IV (15:14)
[2024-10-09 15:25] LABS: Phosphorus 3.2 mg/dl (2.5-4.5)
[2024-10-09] MEDS: KCL 270 MEQ IV (15:30)
--- NOTE | 2024-10-09 18:53 | PTCARENOTE ---
Admitted into room 3352 from ED. VSS. AOx3, but lacks insight and detached. MSAS 4, see flowsheet. Received with IV KCl going into R wrist. Admits feeling depressed, but denies thoughts of ending life or previous attempts.
[2024-10-09] MEDS: THIAMINE INJECTION 200 MG IV (21:04)
[2024-10-09] MEDS: HEPARIN 5000 UNITS SC (21:05)
[2024-10-09] MEDS: ATIVAN 1 MG PO (23:02)
[2024-10-10] VITALS (17 sets, daily range): BP systolic 126–170; BP diastolic 76–122
[2024-10-10] MEDS: ATIVAN 1 MG PO ×2 (01:16→03:33)
--- NOTE | 2024-10-10 02:23 | PTCARENOTE ---
Pt received from previous RN. Pt AAOx3, but agitated, restless, denies ETOH. MSAS maintained. Pt scoring 6's. Pt provided with ordered Ativan dose per protocol. 1:1 maintained. Pt tachycardic on monitor HR 100-120. Pt with frequent BM's. Assessment
as documented. Call light in reach, safe environment maintained.
[2024-10-10] MEDS: ATIVAN 2 MG IV ×7 (04:19→13:09)
[2024-10-10] MEDS: NSS (PRESERVATIVE FREE) 10 ML IV (04:19)
[2024-10-10] MEDS: HALDOL 1 MG IM (04:59)
--- NOTE | 2024-10-10 05:00 | PTCARENOTE ---
Pt scoring 11 on MSAS. Pt given 2mg IV ativan per order. VETERINARY RECEPTIONIST notified of pts increased agitation,aggression , wanting to leave, attempting to exit bed and room. order received for B/L Upper and LE restraints soft 4 rails. code purple called. VETERINARY RECEPTIONIST
to bedside. Pt HR 160's. order received for IM haldol. pt got new IV site due to existing one infiltrating. Safe environment maintained. Care is ongoing.
[2024-10-10] MEDS: NSS (PRESERVATIVE FREE) 1 ML IV ×6 (05:37→13:09)
[2024-10-10] MEDS: PHENOBARBITAL 104 MG IV (06:38)
--- NOTE | 2024-10-10 07:22 | W.PN.UPDATE ---
Update Note
Progress Note Update
RN notified LAND APPRAISER. patient trying to get out of bed, and swinging at the staff, verbally abusive, Ativan IV given per MSAS. 4 point restraint ordered
Code purple was called with in minutes, Patient noted to be in restraints, trying to get out of bed, screaming and yelling stating she has plans and that she needs to get out, asking staff for scissors to cut the restraints. Haldol 1mg IM given,
without much improvement. IV Ativan 2mg given twice again, Phenobarbital IV infusion started.
Stable at present, Consider transfer to ICU on Precedex drip if worsening withdrawal symptoms. Case discussed with [facility] APPRAISER
[2024-10-10] MEDS: THIAMINE INJECTION 200 MG IV ×2 (08:13→22:01)
[2024-10-10] MEDS: PROTONIX IV 40 MG IV (08:13)
[2024-10-10] MEDS: PHENOBARBITAL 97.5 MG IV ×3 (08:14→22:01)
[2024-10-10] MEDS: HEPARIN 5000 UNITS SC (08:20)
[2024-10-10] MEDS: FOLVITE PO (08:21)
[2024-10-10] MEDS: NSS (PRESERVATIVE FREE) 0.5 ML IV (08:32)
[2024-10-10] MEDS: ATIVAN 1 MG IV ×2 (08:32→17:31)
--- NOTE | 2024-10-10 09:23 | W.PN.HOSP.TC ---
Today's Communication/Plan
-
check CPK/LA/BMp
start on precedex drip
transfer to ICU
Assessment / Plan
Assessment / Plan
CT head
Mild to moderate symmetric low-attenuation in the periventricular white matter of the frontal lobes which has increased since 07/02/2022. Diagnostic possibilities are (1) white matter leukoaraiosis, (2) demyelinating disease, (3) vasculitis, or (4)
Lyme disease.
1. Acute toxic metabolic encephalopathy
-likely from alcohol withdrawal vs post ictal state vs other
-CT head finding as above
-check lyme serology, clinically less likely
-treatment of alcohol withdrawal as below
2. Seizure
h.o of seizure disorder
-patient have reported h/o of GTCS in past and was supposed to be on AED, patient have stopped taking it
-witnessed seziure by one of the son before coming to ER
-Neurology recommended Keppra 1g BID yesterday, no orders were placed -starting today
-EEG per neurology recommendation
-MRI brain w/o contrast once clinically appropriate
3. Alcohol withdrawal
-Mixed information on patient alcohol use history.
-Patient does have history of previous alcohol use and withdrawal apparently
-Was maintained on Ativan/phenobarb protocol continued to remain agitated thrashing/yelling
-Started patient on Precedex drip and transferred to ICU for close monitoring
4. Diarrhea
-Associated with abdominal pain/afebrile
-Normal wbc
-Monitor and if have persistent symptoms, will collect further stool testing
-Notes from previous visits reviewed and patient does have history of diarrhea in the past as well
5. Hyponatremia
-presumed euvolemic in nature
-f/u labs pending today
6. Hypokalemia
- replace PRN
7. Hypercalcemia
-f/u post IVF, lab pending today
Full code
Lovenox
Discussed with cone classifier tender
Total critical care time 38 mins . Total critical care time documented does not include time spent on separately billed procedures or the services of residents, students, nurses or physician assistants. I personally saw and examined the patient. I
have reviewed all diagnostic interpretations and treatment plans as written. I was present for the jurado portions of any procedures performed and the inclusive time noted in any critical care statement. Critical care time includes patient management
by me, time spent at the patients bedside, time to review lab and imaging results, discussing patient care, documentation in the medical record, and time spent with the family or caregiver.
Anticipated Discharge: > 48 hours
Subjective/Interval History
-
Date of Service: October 10, 2024
patient very agitated and code purple was called in morning
patient required to be given haldol in morning on top of scheduled ativan/phenobarbital
patient tachycardic/hypertensive/afebrile
Objective Data
-
Labs:
Laboratory Results
10/10/24
06:00
WBC Pending
Hgb Pending
Hct Pending
Plt Count Pending
Sodium Pending
Potassium Pending
Chloride Pending
Carbon Dioxide Pending
BUN Pending
Creatinine Pending
Glucose Pending
Calcium Pending
Total Bilirubin Pending
AST Pending
ALT Pending
Alkaline Phosphatase Pending
Vital Signs:
Vital Signs
Temp Pulse Resp BP Pulse Ox
98.2 F 101 27 146/93 98
10/10/24 07:56 10/10/24 06:15 10/10/24 05:15 10/10/24 03:35 10/10/24 03:40
I&O
10/09/24 10/10/24 10/11/24
06:59 06:59 06:59
Intake Total 960 / 960
Balance 960 / 960
Review of Systems
-
Unable to obtain full review of systems at this time due to: Acuity
Physical Exam
-
General: Appears in Distress
HEENT: Negative Oxygen
Respiratory: Clear to Auscultation
Cardiac: Regular Rhythm and S1/S2; Negative Murmur or Rub
Musculoskeletal: No Edema
Neuro: Awake, Alert and Nonfocal/Grossly Intact
Psych: Confused and Agitated; Negative Intact Judgement/Insight
[2024-10-10] MEDS: HALDOL 1 MG IV (12:20)
--- NOTE | 2024-10-10 12:55 | PTCARENOTE ---
pt w/ MSAS ranging 9-12 throughout shift. Pt medicated per protocol. TT Dr. Peres who came to see pt at bedside. Pt extremely agitated throughout shift despite being medicated w/ ativan per protocol, given haldol per MD order. Pt diaphoretic. Pt
yelling at staff. AAOx1. Sinus Tach w/ HR ranging from low 100's-160's. Pt to be moved to ICU.
[2024-10-10] MEDS: NSS 1000 IV ×2 (13:02→23:18)
--- NOTE | 2024-10-10 13:34 | PTCARENOTE ---
Pt transferred to ICU bed 3369. Pt AAOx1. States, 'I'm here for an education. Where are my books? Do you recycle?'
Agitated and very restless. Sinus tach 115. Noted as high as 160 when transferred. MSAS 14
--- NOTE | 2024-10-10 13:47 | CON.INTV ---
Consultation
Consultation Request
Date/Time Consultation Requested: 10/10/2024
Date/Time Consultation Performed: 10/10/2024 - 1340
Requesting Provider: Dr. Peres
Performing Provider: Dr. Rodriguez
Reason for Consultation: Agitation, need for precedex
Medical History
-
Chief Complaint: Seizure activity prior to arrival
History of Present Illness:
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 She had not slept in 4 days prior to arrival and has been dry heaving. Also endorsing loose stool and abdominal pain in the ER. Her boyfriend is to saw her having a seizure and thought it lasted a few minutes. She was unresponsive
afterwards. She had a similar seizure episode 1 day prior. Patient states that she drinks few alcoholic drinks on the weekends and occasionally during social events. The boyfriend is concerned that she may be drinking more than she is letting on.
Last reported alcoholic drink was 2 days prior to arrival. She reportedly had her first seizure 2 years ago and was recommended starting antiepileptic at that time, and she started this but stopped as she did not feel good on the medicine. She
had another seizure about a year ago, recommended to resume AEDs at that time but she never did. She has been taking Klonopin for anxiety. She has been endorsing watery diarrhea up to '20 times a day,' with abdominal pain for the last 4 days. She
has been eating less and has been losing weight, with nausea but without vomiting. In the ER she was afebrile to 99 �F, pulse rate 98, breathing at 16 breaths/minute, she was hypertensive to 190/125 and saturating 98% on room air. Initial labs
showed potassium 3, chloride 83, serum sodium 129, calcium 10.5, T. bili 2, AST 119, ALT 59, beta hCG level negative, lipase 199, alcohol level was negative, Tylenol level negative and salicylate level negative as well. CT head obtained showing
mild�moderate symmetric low-attenuation in the periventricular white matter of the frontal lobes, increased since last CT head in June 2022 with differentials including white matter leukoaraiosis, demyelinating disease, vasculitis or Lyme disease.
Otherwise no CT evidence for acute intracranial hemorrhage. In the ER she was given labetalol, Ativan and started on IV fluids with NS 0.9% at 80 cc/h. She was admitted to the IMU for suspected alcohol withdrawal seizures. Unfortunately she
became more agitated with kicking and screaming and was transferred to the ICU on 10/10 for Precedex. [employer] Sh[employer] services consulted for additional management/recommendations.
When I saw the patient she was in bed, agitated, and then becoming sleepy. Unable to communicate with me due to agitation. Heart rate labile between 109�125, saturating 96% on room air. Currently on Precedex at 0.3mcg/kg/hr. She is making urine.
Does not appear short of breath.
PMHx: Depression, ADD, seasonal allergies, insomnia, anxiety, cervical dysplasia, history of miscarriage, GERD, history of tobacco use disorder, vape use, vitamin B12 deficiency, history of prolonged QTc, partial seizure disorder
PSHx: Breast augmentation, D&C (2014), , tonsillectomy
Past Medical History
Past Medical History: Other (Above as per HPI)
Past Surgical History: Other (Above as per HPI)
Social History
Tobacco: Non-smoker
Alcohol: Occasional
Drug: None
Personal: Other (Boyfriend)
Family History
Family History: CAD (Father), Cancer (Mother: Precancerous lesion in the uterus s/p hysterectomy; maternal grandfather: Lung cancer) and Other (Maternal grandmother: Dementia + COPD; father: History of drug abuse with history of heroin overdose)
Allergies / Home Medications
Allergies
Allergy/AdvReac Type Severity Reaction Status Date / Time
No Known Allergies Allergy Verified 10/09/24 10:38
Home Medications
�Medication �Instructions �Recorded �Confirmed �Last Taken �Type
No Meds [No Current Medications] 10/09/24 10/09/24 Unknown History
Review of Systems
-
Unable to Obtain full review of systems at this time due to: Acuity
Vitals / Labs / Diagnostic Testing
Vital Signs
Temp Pulse Resp BP Pulse Ox
98.4 F 131 30 168/116 98
10/10/24 13:37 10/10/24 13:07 10/10/24 13:07 10/10/24 13:07 10/10/24 03:40
Diagnostic Testing:
Physical Exam
-
HEENT: Normocephalic and Anicteric
Cardiovascular: S1/S2 and Other (Tachycardic)
Respiratory: Wheeze (negative), Rales (negative), Rhonchi (negative) and Non-Labored Respirations
GI: Soft, Non Distended, Non Tender and Normal Bowel Sounds
Neurology: Tremors (negative), Other (Agitated with periods of somnolence) and Other (Pupils 2 mm bilaterally and brisk)
Skin: Warm and Dry
General: Respiratory Distress (negative), Chills (negative) and Sweats (negative)
Assessment
-
Assessment: 33-year-old former tobacco smoker (quit >7 years ago) with a past medical history of vape use, ADD, depression, anxiety, GERD, vitamin B12 deficiency, history of prolonged QTc and history of partial seizure disorder who presents with
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 She had not slept in 4 days prior to arrival and has been dry heaving. Also endorsing loose stool and abdominal pain in the ER. Her boyfriend is to saw her having a seizure and thought it lasted a few minutes. She was
unresponsive afterwards. She had a similar seizure episode 1 day prior. Patient states that she drinks few alcoholic drinks on the weekends and occasionally during social events. The boyfriend is concerned that she may be drinking more than she
is letting on. Last reported alcoholic drink was 2 days prior to arrival. She reportedly had her first seizure 2 years ago and was recommended starting antiepileptic at that time, and she started this but stopped as she did not feel good on the
medicine. She had another seizure about a year ago, recommended to resume AEDs at that time but she never did. She has been taking Klonopin for anxiety. She has been endorsing watery diarrhea up to '20 times a day,' with abdominal pain for the
last 4 days. She has been eating less and has been losing weight, with nausea but without vomiting. In the ER she was afebrile to 99 �F, pulse rate 98, breathing at 16 breaths/minute, she was hypertensive to 190/125 and saturating 98% on room air.
Initial labs showed potassium 3, chloride 83, serum sodium 129, calcium 10.5, T. bili 2, AST 119, ALT 59, beta hCG level negative, lipase 199, alcohol level was negative, Tylenol level negative and salicylate level negative as well. CT head
obtained showing mild�moderate symmetric low-attenuation in the periventricular white matter of the frontal lobes, increased since last CT head in June 2022 with differentials including white matter leukoaraiosis, demyelinating disease, vasculitis
or Lyme disease. Otherwise no CT evidence for acute intracranial hemorrhage. In the ER she was given labetalol, Ativan and started on IV fluids with NS 0.9% at 80 cc/h. She was admitted to the IMU for suspected alcohol withdrawal seizures.
Unfortunately she became more agitated with kicking and screaming on 10/10 and was transferred to the ICU for Precedex. Gear Shaper services consulted for additional management/recommendations.
Chronic conditions VOLUNTEER MANAGER: Depression, ADD, seasonal allergies, insomnia, anxiety, cervical dysplasia, history of miscarriage, GERD, history of tobacco use disorder, vape use, vitamin B12 deficiency, history of prolonged QTc, partial seizure disorder
Impression:
#Suspected alcohol use disorder with withdrawal seizure
#Agitation suspected to be alcohol withdrawal +/- delirium
#Hypertensive urgency due to agitation
#Mild thrombocytopenia (chronic component as she was 121�124 in June 2024)
#Hypochloremic, hyponatremia likely due to diarrhea with reduced PO intake
#Hypokalemia
#Hypercalcemia likely due to dehydration
#Transaminitis (AST>ALT) and elevated ALP with hyperbilirubinemia (likely due to EtOH use)
#History of anxiety
#GERD
#History of vape use
#History of tobacco use disorder
#History of prolonged QTc
Plan:
- Start precedex with prn Zyprexa (monitor QTc: 447ms via EKG from 10/09/2024)
- Restraints; if she calms down then we can remove
- Continue with phenobarbital, thiamine + folate
- Continue keppra as per neurology
- MSAS with prn ativan
- Psych consult
- Given the CT head findings, check Lyme serology, ESR, CRP and consider brain MRI when patient is stable for transport --> defer to neurology
- Maintain SpO2 >90-94%
- Maintain MAP>65 but keep BP<140/90mmHg - will order prn labetalol
- Replete electrolytes with K>4, Mg>2
- Maintain euglycemia with goal BG 140-180
- Trend H/H and transfuse if needed to keep Hb>7g/dL; keep plt>20k, unless there is concern for bleeding then keep plt>50k
- prn nebulized bronchodilators - not currently bronchospastic
- DVT ppx: Change HSQ to LMWH
Critical care statement: A total of 38 minutes of critical care time was provided for this patient today. This includes management of unstable vital signs, evaluation of the patient at bedside, reviewing the patient's pertinent medical records
including radiographs, microbiology, laboratory evaluations, and discussion with primary team, consultants, pharmacy, nutrition, physical therapy, case management, charge nurse, critical care nursing, and respiratory therapy.
Data:
CT head 10/09/2024:
1. Mild to moderate symmetric low-attenuation in the periventricular white matter of the frontal lobes which has increased since 07/02/2022. Diagnostic possibilities are (1) white matter leukoaraiosis, (2) demyelinating disease, (3) vasculitis, or
(4) Lyme disease.
2. Mild cerebellar volume loss.
3. No CT evidence for acute intracranial hemorrhage, intracranial mass, or hydrocephalus.
[2024-10-10 14:11] LABS: % Basophils 1.1 % (0-2); % Eosinophils 1.9 % (0-6); % Immature Granulocytes 0.4 % (0-0.5); % Lymphocytes 11.5 % (20.5-51.1); % Neutrophils 72.1 % (42.2-75.2); Absolute Basophils 0.1 10^3/uL (0-0.2); Absolute Eosinophils 0.1 10^3/uL (0-0.7); Absolute Lymphocytes 0.6 10^3/uL (1.2-3.4); Absolute Monocytes 0.7 10^3/uL (0.1-0.6); Absolute Neutrophils 3.8 10^3/uL (1.4-6.5); Hematocrit 33.2 % (37.0-47.0); Hemoglobin 12.2 g/dL (12.0-16.0); Mean Corp Hgb Conc. 36.7 g/dL (33.0-37.0); Mean Corpuscular Hgb 36.4 pg (27.0-31.0); Mean Corpuscular Volume 99.1 fL (81.0-99.0); Mean Platelet Volume 10.5 fL (7.4-10.4); Nucleated Red Blood Cells % 0 %; Platelet Count 126 10^3/uL (130-400); Red Blood Cell Count 3.35 10^6/uL (4.20-5.40); Red Cell Dist. Width 11.1 % (11.5-14.5); White Blood Cell Count 5.3 10^3/uL (4.8-10.8)
[2024-10-10 14:25] LABS: ALT (SGPT) 36 U/L (0-35); AST (SGOT) 77 U/L (14-36); Alkaline Phosphatase 84 U/L (38-126); Blood Urea Nitrogen 3 mg/dl (7-17); Calcium 9.7 mg/dl (8.4-10.2); Carbon Dioxide 26 mmol/L (22-30); Chloride 100 mmol/L (98-107); Estimated Creatinine Clearance 96 ml/min; Glucose 87 mg/dl (70-99); Potassium 3.4 mmol/L (3.5-5.1); Sodium 135 mmol/L (135-145); Total Bilirubin 1.4 mg/dl (0.2-1.3); Total Protein 6.1 g/dl (6.3-8.2); eGFR > 60.00
[2024-10-10 14:31] LABS: INR 0.95
[2024-10-10 14:32] LABS: APTT 27.5 Sec (23.4-35.0)
[2024-10-10 14:50] LABS: Creatine Phosphokinase 688 U/L (30-135)
--- NOTE | 2024-10-10 16:30 | PTCARENOTE ---
pt calm on precedex gtt. 1:1 obs d/c'd
[2024-10-10] MEDS: LOVENOX 40 MG SC (17:30)
--- NOTE | 2024-10-10 17:47 | PTCARENOTE ---
Precedex per protocol. Slept for a short time. Attempted to wean precedex. Pt became agitated again. Agitation increased after PRN Ativan given. Pt thrashing in bed, pulling against restraints and cursing at staff. Precedex titrated back up.
All other assessments unchanged.
[2024-10-10 17:49] LABS: Urine Albumin Negative (Neg - Trace); Urine Bilirubin Negative (Negative); Urine Character Clear (Clear); Urine Color Yellow; Urine Glucose Negative (Negative); Urine Ketone Negative (Negative); Urine Leukocyte Negative (Negative); Urine Nitrite Negative (Negative); Urine Occult Blood Negative (Negative); Urine Specific Gravity 1.005 (<1.030); Urine Urobilinogen Negative (Neg - 1+)
[2024-10-10 17:57] LABS: Amphetamines Negative (Negative); Barbiturates Positive (Negative); Benzodiazepines Positive (Negative); Buprenorphine Negative (Negative)
[2024-10-10 17:58] LABS: Cocaine Negative (Negative); Marijuana Negative (Negative); Methadone Negative (Negative); Methamphetamines Negative (Negative); Opiates Negative (Negative); Phencyclidine Negative (Negative); Tricyclic Antidepressants Negative (Negative)
[2024-10-10 18:17] LABS: Fentanyl, Urine Negative (Negative)
--- NOTE | 2024-10-10 18:52 | CON.MD ---
Consultation - Medical
-
33 yr old F who initially presented following seizure witnessed by her bf, has unspecific seizure d/o by hx but not on AED currently. Prior to admission was having diarrhea for about 4 days, with some hyponatremia found on labs. Was observed to be
tremulous in ED, reported EtOH use as on weekends, however pts bf expressed concern about her EtOH use and it seems he reported to staff that she drinks significantly more than she admitted. Psychiatry was consulted as pt became increasingly more
agitated, with code purple this AM - increasingly more confused, disoriented. Was on phenobarbital taper for w/d prior to these sxs starting, was transferred to ICU for precedex. Currently requiring both phenobarb and precedex, VS remain elevated
and pt remains agitated when precedex attempted to be lowered later in the day.
CT head showed the following: Mild to moderate symmetric low-attenuation in the periventricular white matter of the frontal lobes which has increased since 07/02/2022. Diagnostic possibilities are (1) white matter leukoaraiosis, (2) demyelinating
disease, (3) vasculitis, or (4) Lyme disease
EtOH abuse, unknown severity but suspected to be severe
MSE: female, sleeping, unable to participate in meaningful interview. Unable to assess mood, thought process/content, memory, etc. Has been confused & disoriented when awake, given current delirium insight/judgement poor at the moment.
Continue phenobarbital taper + precedex, pt not yet able to tolerate precedex decrease
Continue MSAS
[2024-10-10] MEDS: KEPPRA 1000 MG IV (22:00)
[2024-10-10] MEDS: KCL 270 MEQ IV (22:02)
--- NOTE | 2024-10-10 22:30 | PTCARENOTE ---
Assumed care of pt at 1900. Received pt on Precedex at 0.5mcg/kg/min, in 4 point soft limb restraints. Pt agitated and intermittently screaming/yelling out, cursing, asking for scissors, refusing assessment and refusing any care. SR 90s on monitor.
Precedex needed to be titrated up due to RASS score, see med titration flowsheet/MSAS flowsheet for details. After receiving 2200 dose of Phenobarbital pt fell asleep, was able to complete physical assessment and perform incontinence care on
patient/change linens. See nursing shift assessment flowsheet for full physical assessment details.
[2024-10-11] VITALS (26 sets, daily range): BP systolic 106–193; BP diastolic 18–126; BMI 19.0
--- NOTE | 2024-10-11 00:50 | PTCARENOTE ---
Midnight assessment unchanged, pt remains on Precedex, currently sleeping with RASS -2, SR 80s on monitor, SpO2 94% on RA.
[2024-10-11] MEDS: TRANDATE 10 MG IV ×3 (02:09→23:30)
[2024-10-11] MEDS: PRECEDEX 100 IV ×3 (02:17→21:42)
[2024-10-11 04:10] LABS: Hematocrit 32.1 % (37.0-47.0); Hemoglobin 11.6 g/dL (12.0-16.0); Mean Corp Hgb Conc. 36.1 g/dL (33.0-37.0); Mean Corpuscular Hgb 36.1 pg (27.0-31.0); Mean Platelet Volume 11.7 fL (7.4-10.4); Platelet Count 4 10^3/uL (130-400); Red Blood Cell Count 3.21 10^6/uL (4.20-5.40); Red Cell Dist. Width 10.9 % (11.5-14.5); White Blood Cell Count 3.1 10^3/uL (4.8-10.8)
--- NOTE | 2024-10-11 04:10 | PTCARENOTE ---
Physical assessment unchanged. Received Labetalol 10mg for elevated BP, see EMAR. Remains on Precedex at 0.6mcg/kg/min, has been asleep most of the shift, awakens due to being incontinent and will become agitated, however was cooperative when being
cleaned up. Mouth care able to be done, pt quickly drank an entire cup of water and placed A&D ointment on her lips when I put some on her finger, but then pt was awake and cooperative enough to brush her teeth (while sitting in bed). Pt taken out
of restraints before 0400 (see restraint documentation for exact time). Remains confused and unable to reorient but has not been mean or combative. Pt now resting in bed with eyes closed. SR 90s on monitor, SpO2 97% on RA. Bed alarm activated.
[2024-10-11 04:14] LABS: ALT (SGPT) 36 U/L (0-35); AST (SGOT) 77 U/L (14-36); Albumin 3.6 g/dl (3.5-5.0); Alkaline Phosphatase 64 U/L (38-126); Blood Urea Nitrogen 3 mg/dl (7-17); Calcium 8.6 mg/dl (8.4-10.2); Carbon Dioxide 17 mmol/L (22-30); Chloride 107 mmol/L (98-107); Direct Bilirubin 0.6 mg/dl (0.0-0.4); Estimated Creatinine Clearance 107 ml/min; Glucose 60 mg/dl (70-99); Magnesium 1.6 mg/dl (1.6-2.3); Phosphorus 3.5 mg/dl (2.5-4.5); Potassium 3.7 mmol/L (3.5-5.1); Sodium 140 mmol/L (135-145); Total Bilirubin 1.4 mg/dl (0.2-1.3); Total Protein 5.9 g/dl (6.3-8.2); eGFR > 60.00
[2024-10-11 04:53] LABS: Glucose - Point of Care 75 mg/dl (70-99)
[2024-10-11 05:02] LABS: Erythrocyte Sed Rate 7 mm/hour (0-20)
[2024-10-11 05:32] LABS: Hematocrit 33.1 % (37.0-47.0); Hemoglobin 11.9 g/dL (12.0-16.0); Mean Corpuscular Hgb 36.5 pg (27.0-31.0); Mean Corpuscular Volume 101.5 fL (81.0-99.0); Mean Platelet Volume 9.5 fL (7.4-10.4); Platelet Count 111 10^3/uL (130-400); Red Blood Cell Count 3.26 10^6/uL (4.20-5.40); Red Cell Dist. Width 10.9 % (11.5-14.5); White Blood Cell Count 7.5 10^3/uL (4.8-10.8)
[2024-10-11 05:45] LABS: Erythrocyte Sed Rate 8 mm/hour (0-20)
[2024-10-11 05:57] LABS: Blood Urea Nitrogen 4 mg/dl (7-17); Calcium 9.2 mg/dl (8.4-10.2); Carbon Dioxide 23 mmol/L (22-30); Chloride 104 mmol/L (98-107); Estimated Creatinine Clearance 92 ml/min; Glucose 63 mg/dl (70-99); Magnesium 1.5 mg/dl (1.6-2.3); Potassium 4.6 mmol/L (3.5-5.1); Sodium 140 mmol/L (135-145); eGFR > 60.00
--- NOTE | 2024-10-11 06:15 | PTCARENOTE ---
Pt needed to IV lined d/t questionable patency of LFA IV. Pt cooperative with new IV start. Cooperative with using the bedpan to urinate, however pt then became increasingly agitated, saying she needed to have a BM and insisting that she would not
use the bedpan, was argumentative and refusing to sit down in the bed, bedside commode obtained and pt sat down on it and had diarrhea and urine. Once finished pt was refusing to get back in bed, eventually 4 staff members were able to get her back
in the bed, pt now back in 4 point restraints. Yelling out, cursing. Precedex continues at 0.6 mcg/kg/min. Bed alarm activated.
[2024-10-11] MEDS: KEPPRA 1000 MG IV ×2 (07:53→21:00)
[2024-10-11] MEDS: FOLVITE 1 MG PO (07:53)
[2024-10-11] MEDS: PHENOBARBITAL 97.5 MG IV ×3 (07:54→21:00)
[2024-10-11] MEDS: PROTONIX IV 40 MG IV (07:54)
[2024-10-11] MEDS: THIAMINE INJECTION 200 MG IV ×2 (07:54→20:59)
--- NOTE | 2024-10-11 08:20 | W.PN.INTV ---
Today's Communication / Plan
Recommendations
Precedex and wean as she clinically improves
Keppra
Phenobarbital with thiamine and prn Ativan
MSAS
Okay to keep off restraints but placed back if patient becomes agitated, violent or tries to remove peripheral IVs
Psych consulted and recs appreciated
Continue with ICU level care
Assessment
-
Assessment: 33-year-old former tobacco smoker (quit >7 years ago) with a past medical history of vape use, ADD, depression, anxiety, GERD, vitamin B12 deficiency, history of prolonged QTc and history of partial seizure disorder who presents with
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 She had not slept in 4 days prior to arrival and has been dry heaving. Also endorsing loose stool and abdominal pain in the ER. Her boyfriend is to saw her having a seizure and thought it lasted a few minutes. She was
unresponsive afterwards. She had a similar seizure episode 1 day prior. Patient states that she drinks few alcoholic drinks on the weekends and occasionally during social events. The boyfriend is concerned that she may be drinking more than she
is letting on. Last reported alcoholic drink was 2 days prior to arrival. She reportedly had her first seizure 2 years ago and was recommended starting antiepileptic at that time, and she started this but stopped as she did not feel good on the
medicine. She had another seizure about a year ago, recommended to resume AEDs at that time but she never did. She has been taking Klonopin for anxiety. She has been endorsing watery diarrhea up to '20 times a day,' with abdominal pain for the
last 4 days. She has been eating less and has been losing weight, with nausea but without vomiting. In the ER she was afebrile to 99 �F, pulse rate 98, breathing at 16 breaths/minute, she was hypertensive to 190/125 and saturating 98% on room air.
Initial labs showed potassium 3, chloride 83, serum sodium 129, calcium 10.5, T. bili 2, AST 119, ALT 59, beta hCG level negative, lipase 199, alcohol level was negative, Tylenol level negative and salicylate level negative as well. CT head
obtained showing mild�moderate symmetric low-attenuation in the periventricular white matter of the frontal lobes, increased since last CT head in June 2022 with differentials including white matter leukoaraiosis, demyelinating disease, vasculitis
or Lyme disease. Otherwise no CT evidence for acute intracranial hemorrhage. In the ER she was given labetalol, Ativan and started on IV fluids with NS 0.9% at 80 cc/h. She was admitted to the IMU for suspected alcohol withdrawal seizures.
Unfortunately she became more agitated with kicking and screaming on 10/10 and was transferred to the ICU for Precedex. [employer] services consulted for additional management/recommendations.
Chronic conditions DIRECTOR OF BROADCAST: Depression, ADD, seasonal allergies, insomnia, anxiety, cervical dysplasia, history of miscarriage, GERD, history of tobacco use disorder, vape use, vitamin B12 deficiency, history of prolonged QTc, partial seizure disorder
Impression:
#Suspected alcohol use disorder with withdrawal seizure
#Agitation suspected to be alcohol withdrawal +/- delirium
#Hypertensive urgency due to agitation - now normotensive
#Mild thrombocytopenia (chronic component as she was 121�124 in June 2024)
#Hypochloremic, hyponatremia likely due to diarrhea with reduced PO intake - Na and Cl now normal
#Hypokalemia - resolved
#Hypercalcemia likely due to dehydration- resolved
#Transaminitis (AST>ALT) and elevated ALP with hyperbilirubinemia (likely due to EtOH use)
#History of anxiety
#GERD
#History of vape use
#History of tobacco use disorder
#History of prolonged QTc
Plan:
- Continue precedex with prn Zyprexa (monitor QTc: 447ms via EKG from 10/09/2024)
- Ok to remove restraints; if she becomes agitated again or violent or tries to remove her PIV, then will need to place them back on until she calms down and is cooperative
- Continue with phenobarbital, thiamine + folate
- Continue keppra as per neurology
- MSAS with prn ativan
- Psych consulted and recs appreciated
- Given the CT head findings, Lyme serology is pending; ESR: 7 and CRP: 18.6; consider brain MRI when patient is stable for transport --> defer to neurology
- Maintain SpO2 >90-94%
- Maintain MAP>65 but keep BP<140/90mmHg - prn labetalol
- Replete electrolytes with K>4, Mg>2
- Maintain euglycemia with goal BG 140-180
- Trend H/H and transfuse if needed to keep Hb>7g/dL; keep plt>20k, unless there is concern for bleeding then keep plt>50k
- prn nebulized bronchodilators - not currently bronchospastic
- DVT ppx: LMWH
I had a discussion with the patient's boyfriend, Jr, and according to him the patient drinks 3 IPA Perpetual's per day which has 7.5% ABV. He is not exactly sure if she drinks more and according to him she does not do any other drugs. She has
been very reluctant to following up with neurology as an outpatient and believes there could be a component of depression as well. They have 2 young children at home and he tries to have her remember them when making decisions about her health.
Critical care statement: A total of 41 minutes of critical care time was provided for this patient today. This includes management of unstable vital signs, evaluation of the patient at bedside, reviewing the patient's pertinent medical records
including radiographs, microbiology, laboratory evaluations, and discussion with primary team, consultants, pharmacy, nutrition, physical therapy, case management, charge nurse, critical care nursing, and respiratory therapy.
Data:
CT head 10/09/2024:
1. Mild to moderate symmetric low-attenuation in the periventricular white matter of the frontal lobes which has increased since 07/02/2022. Diagnostic possibilities are (1) white matter leukoaraiosis, (2) demyelinating disease, (3) vasculitis, or
(4) Lyme disease.
2. Mild cerebellar volume loss.
3. No CT evidence for acute intracranial hemorrhage, intracranial mass, or hydrocephalus.
Subjective Dataa
Subjective Data
Date of Service:
Date of Service: October 11, 2024
Chief Complaint: Wind Energy Engineer Follow Up
Subjective:
Patient was seen and evaluated today at bedside. She is much more calm today but still waking up and having periods of frustration and agitation and saying she wants to leave. Confused at times. Currently on Precedex at 0.7mcg/kg/hr. Her
boyfriend, Jr, is at bedside and I answered all of his questions. She is currently on room air saturating 95% with heart rate 96 and BP 110/92.
Review of Systems
General: Other (Unable to obtain given patient's acute clinical status/agitation/confusion)
Objective Data
Data Reviewed
Vital Signs / I&O / Oxygen:
Vital Signs
Temp Pulse Resp BP Pulse Ox
97.8 F 107 18 135/103 95
10/11/24 07:35 10/11/24 08:00 10/11/24 08:00 10/11/24 08:00 10/11/24 05:00
Intake and Output
10/10/24 10/11/24 10/12/24
06:59 06:59 06:59
Intake Total 3029.8 / 3117.9 426.2 / 426.2
Balance 3029.8 / 3117.9 426.2 / 426.2
SaO2 95
Physical Exam
General: Respiratory Distress (negative), Comfortable, Chills (negative) and Sweats (negative)
HEENT: Normocephalic and Anicteric
Cardiovascular: S1-S2 and Peripheral Edema (negative)
Respiratory: Clear, Wheeze (negative), Crackles (negative), Rhonchi (negative) and Non-Labored Respirations
GI: Soft, Non Distended, Non Tender and Normal Bowel Sounds
Neurology: Tremors (negative) and Lethargic
Skin: Warm, Dry, Cyanosis (negative) and Jaundice (negative)
Labs/Micro/Reports
Lab Data
10/11/24 05:17
10/11/24 05:17
Laboratory Results
10/10/24
13:52
PT 13.0
INR 0.95
APTT 27.5
--- NOTE | 2024-10-11 10:09 | W.PN.HOSP.TC ---
Today's Communication/Plan
-
continue alc withdrawal protocol
wean off Precedex as possible
continue other supportive care
Assessment / Plan
Assessment / Plan
CT head
Mild to moderate symmetric low-attenuation in the periventricular white matter of the frontal lobes which has increased since 07/02/2022. Diagnostic possibilities are (1) white matter leukoaraiosis, (2) demyelinating disease, (3) vasculitis, or (4)
Lyme disease.

1. Acute toxic metabolic encephalopathy
-likely from alcohol withdrawal vs post ictal state vs other
-CT head finding as above
-check lyme serology, clinically less likely
-treatment of alcohol withdrawal as below
2. Seizure
h.o of seizure disorder
-patient have reported h/o of GTCS in past and was supposed to be on AED, patient have stopped taking it
-witnessed seziure by one of the son before coming to ER
-Neurology recommended Keppra 1g BID, no orders were placed in ER, started from 10/10 noon.
-EEG per neurology recommendation
-MRI brain w/o contrast once clinically appropriate
3. Alcohol withdrawal
-Mixed information on patient alcohol use history.
-Patient does have history of previous alcohol use and withdrawal apparently
-Despite being on Ativan/phenobarbital/as needed Haldol patient was quite confused and agitated
-Patient required to be restrained and transferred to ICU and has been started on Precedex drip currently at rate of 0.6 mg/kg/h, wean off as possible
4. Diarrhea
-not associated with abdominal pain/afebrile
-Normal wbc
-Monitor and if have persistent symptoms, will collect further stool testing
-Notes from previous visits reviewed and patient does have history of diarrhea in the past as well
5. Hyponatremia
-presumed euvolemic in nature
-f/u labs pending today
6. Hypokalemia
- replace PRN
7. Hypercalcemia
-f/u post IVF, lab pending today
Full code
Lovenox
Discussed care plan with patient Boyfriend at bedside
Total critical care time 36 mins . Total critical care time documented does not include time spent on separately billed procedures or the services of residents, students, nurses or physician assistants. I personally saw and examined the patient. I
have reviewed all diagnostic interpretations and treatment plans as written. I was present for the jurado portions of any procedures performed and the inclusive time noted in any critical care statement. Critical care time includes patient management
by me, time spent at the patients bedside, time to review lab and imaging results, discussing patient care, documentation in the medical record, and time spent with the family or caregiver.
Anticipated Discharge: 24 - 48 hours
Subjective/Interval History
-
Date of Service: October 11, 2024
Patient more awake and coherent today
Still remains confused at points and not making sense
on precedex drip @ 0.6 mg/kg/hr currently
Objective Data
-
Labs:
Laboratory Results
10/11/24 10/11/24
03:51 05:17
WBC 3.1 L 7.5
Hgb 11.6 L 11.9 L
Hct 32.1 L 33.1 L
Plt Count 4 L* D 111 L D
Sodium 140 140
Potassium 3.7 4.6
Chloride 107 104
Carbon Dioxide 17 L 23
BUN 3 L 4 L
Creatinine 0.6 0.7
Glucose 60 L 63 L
Calcium 8.6 9.2
Total Bilirubin 1.4 H
AST 77 H
ALT 36 H
Alkaline Phosphatase 64
Vital Signs:
Vital Signs
Temp Pulse Resp BP Pulse Ox
97.8 F 107 18 135/103 95
10/11/24 07:35 10/11/24 08:00 10/11/24 08:00 10/11/24 08:00 10/11/24 05:00
I&O
10/10/24 10/11/24 10/12/24
06:59 06:59 06:59
Intake Total 3029.8 / 3117.9 722.4 / 722.4
Balance 3029.8 / 3117.9 722.4 / 722.4
Review of Systems
-
Respiratory: Reports No Symptoms
Cardiac: Reports No Symptoms
Abdomen/GI: Reports No Symptoms
Physical Exam
-
General: No Apparent Distress and Comfortable
HEENT: Negative Oxygen
Neuro: Awake, Alert, No Motor Deficits and Nonfocal/Grossly Intact; Negative Oriented
Psych: Confused
--- NOTE | 2024-10-11 10:35 | PTCARENOTE ---
Restraints d/c'd. Pt cooperative but remains confused and forgetful. Attempts to get OOB, setting off bed alarm. Pt redirectable. Pt apologized when stopped from pulling out IV. Call for medsitter but none available at this time. Radio Operator
made aware. PCT sitting with pt until medsitter made available.
--- NOTE | 2024-10-11 12:30 | PTCARENOTE ---
Pt calm and confused. Easily redirected. Remains on Precedex gtt and medsitter. Pt gets angry at times when told she will not be discharged today. Pt appears calmer with family at bedside. Good appetite. All other assessments unchanged.
[2024-10-11] MEDS: HALDOL 5 MG IV (14:42)
--- NOTE | 2024-10-11 16:43 | PTCARENOTE ---
Around 1415, pt became very agitated. Yelling and stating she wants to leave. Pt climbed out of bed and staff unable to get her back in bed. Pt unsteady on her feet. Pt reoriented and educated on seizures. called to bedside. Pt notified
that she can leave against medical advice but needs a family member to pick her up. Pt called her boyfriend who agreed she should stay in the hospital. Pt remains on Precedex gtt. One time dose of Haldol given per order. Pt slept for about
1.5hr. Around 1600, medsitter called then bed alarming. Pt attempted to pull out IV and broke tubing then got out of bed and stood peeing on the floor. CHG bath given, gown and linens changed. Pt appears to have fallen asleep immediately after
getting in bed.
[2024-10-11] MEDS: LOVENOX SC (17:39)
--- NOTE | 2024-10-11 19:45 | PTCARENOTE ---
Unable to verify accuracy of vital signs from time period [id number]
--- NOTE | 2024-10-11 20:30 | PTCARENOTE ---
Assumed care of pt at 1900. Pt is alert to self only at this time, unable to reorient to reality, confused, having visual hallucination of a man in the corner of the room. Continues on Precedex, received pt on 1mcg/kg/min. See nursing shift
assessment flowsheet for full physical assessment details. Pt is impulsive, mostly when having to urinate, she will suddenly get agitated and won't wait any amount of time for staff to help her to BSC. SR 80s-90s on monitor. Bed alarm activated.
[2024-10-12] VITALS (21 sets, daily range): BP systolic 102–204; BP diastolic 67–118; PULSE 114–115; BMI 18.7; BMI 18.5
[2024-10-12] MEDS: APRESOLINE 10 MG IV ×2 (00:17→11:32)
--- NOTE | 2024-10-12 00:54 | PTCARENOTE ---
Physical assessment unchanged. Pt continues on Precedex drip. Has mostly been sleeping but will suddenly wake up and impulsively try to climb over the side rails of the bed because she has to urinate. Usually able to void in BSC, incontinent x1 so
far just because she did not make it to the BSC in time. Pt with very unsteady gait and stumbles and sways when standing, gets angry and agitated when people attempt to help her. Continues to be confused, unable to reorient, occasional visual
hallucinations. Pt's BP elevated throughout the shift. Has received PRN dose of Labetalol 10mg, then additional x1 dose of Labetalol 10mg, still no effect and therefore PRN dose of Hydralazine 10mg given (see EMAR). SR 80s on monitor, SpO2 96-98% on
RA. Bed alarm activated and med sitter in room.
--- NOTE | 2024-10-12 02:45 | PTCARENOTE ---
Pt woke up around 0215, more pleasant and cooperative, easily redirectable. Voicing that she wants to get OOB. Offered to get pt OOB to walk around the room to which she agreed. Pt placed on telemetry pack, disconnected from Precedex infusion, able
to ambulate around the room with standby assistance although gait is still unsteady and pt needed to hold my hand. Pt sat on couch in room, started talking about how she will stop drinking and it's difficult because her anxiety is bad. Pt started
crying, then asked if I was mandated to report if someone was being hurt. I asked her if a child was being hurt and she said no, I asked her if she was being hurt and she said 'I was', asked her if she felt safe at home and she said 'I do now' but
then pt stop giving details. Pt has much better insight and is very pleasant at this time. Attempted to walk in the hallway but pt stated she felt dizzy and wanted to go back to her room. Pt now sitting up in bed, given paper and a pencil because
she wants to write things down, eating jello and applesauce and drinking juice. Taught pt how to use the call boswell/remote and she is using it appropriately at this time, watching TV. Pt remains off Precedex at this time as she is calm and
cooperative with care.
[2024-10-12 03:55] LABS: Hematocrit 32.8 % (37.0-47.0); Hemoglobin 12.1 g/dL (12.0-16.0); Mean Corp Hgb Conc. 36.9 g/dL (33.0-37.0); Mean Corpuscular Hgb 36.9 pg (27.0-31.0); Platelet Count 134 10^3/uL (130-400); Red Blood Cell Count 3.28 10^6/uL (4.20-5.40); Red Cell Dist. Width 11.1 % (11.5-14.5); White Blood Cell Count 6.7 10^3/uL (4.8-10.8)
--- NOTE | 2024-10-12 04:15 | PTCARENOTE ---
Assessment unchanged. Remains calm, pleasant, and cooperative with care. Remains off Precedex. Ambulated in arreola around the entire unit (1 lap) with standby assistance. Gait becoming more steady. Pt has been ringing call boswell appropriately to get
OOB to use the bathroom. Gabriel barrientos DC'gaby.
[2024-10-12 04:17] LABS: Blood Urea Nitrogen 3 mg/dl (7-17); Calcium 9.7 mg/dl (8.4-10.2); Carbon Dioxide 27 mmol/L (22-30); Chloride 96 mmol/L (98-107); Estimated Creatinine Clearance 63 ml/min; Glucose 158 mg/dl (70-99); Sodium 138 mmol/L (135-145); eGFR > 60.00
[2024-10-12 06:27] LABS: Magnesium 1.2 mg/dl (1.6-2.3)
[2024-10-12] MEDS: LUMINAL 64.8 MG PO ×2 (07:47→15:55)
[2024-10-12] MEDS: FOLVITE 1 MG PO (07:47)
--- NOTE | 2024-10-12 07:58 | W.PN.INTV ---
Today's Communication / Plan
Recommendations
Wean Precedex
Phenobarbital continues
Keppra continues
Thiamine and folate
If Precedex weaned then transfer out of ICU-call pulmonary if respiratory issues arise
Assessment
-
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 She had not slept in 4 days prior to arrival and has been dry heaving. Also endorsing loose stool and abdominal pain in the ER. Her boyfriend is to saw her having a seizure and thought it lasted a few minutes. She was unresponsive
afterwards. She had a similar seizure episode 1 day prior. Patient states that she drinks few alcoholic drinks on the weekends and occasionally during social events. The boyfriend is concerned that she may be drinking more than she is letting on.
Last reported alcoholic drink was 2 days prior to arrival. She reportedly had her first seizure 2 years ago and was recommended starting antiepileptic at that time, and she started this but stopped as she did not feel good on the medicine. She
had another seizure about a year ago, recommended to resume AEDs at that time but she never did. She has been taking Klonopin for anxiety. She has been endorsing watery diarrhea up to '20 times a day,' with abdominal pain for the last 4 days. She
has been eating less and has been losing weight, with nausea but without vomiting. In the ER she was afebrile to 99 �F, pulse rate 98, breathing at 16 breaths/minute, she was hypertensive to 190/125 and saturating 98% on room air. Initial labs
showed potassium 3, chloride 83, serum sodium 129, calcium 10.5, T. bili 2, AST 119, ALT 59, beta hCG level negative, lipase 199, alcohol level was negative, Tylenol level negative and salicylate level negative as well. CT head obtained showing
mild�moderate symmetric low-attenuation in the periventricular white matter of the frontal lobes, increased since last CT head in June 2022 with differentials including white matter leukoaraiosis, demyelinating disease, vasculitis or Lyme disease.
Otherwise no CT evidence for acute intracranial hemorrhage. In the ER she was given labetalol, Ativan and started on IV fluids with NS 0.9% at 80 cc/h. She was admitted to the IMU for suspected alcohol withdrawal seizures. Unfortunately she
became more agitated with kicking and screaming on 10/10 and was transferred to the ICU for Precedex. Special Ed Assistant services consulted for additional management/recommendations.
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
Impression:
#Suspected alcohol use disorder with withdrawal seizure
#Agitation suspected to be alcohol withdrawal +/- delirium
#Hypertensive urgency due to agitation - now normotensive
#Mild thrombocytopenia (chronic component as she was 121�124 in June 2024)
#Hypochloremic, hyponatremia likely due to diarrhea with reduced PO intake - Na and Cl now normal
#Hypokalemia - resolved
#Hypercalcemia likely due to dehydration- resolved
#Transaminitis (AST>ALT) and elevated ALP with hyperbilirubinemia (likely due to EtOH use)
#History of anxiety
#GERD
#History of vape use
#History of tobacco use disorder
#History of prolonged QTc
Plan:
Critically ill on Precedex-slowly improving
Respiratory status stable-denies any shortness of breath, pleurisy, recent sedentary existence, calf pain or leg swelling
Incentive spirometry
Wean oxygen
Increase activity
Discontinue Precedex
Phenobarbital appears to be helping
Alcohol withdrawal treatment protocol
Thiamine and folate continue
Keppra continues per neurology
Follow [facility]
Ativan as needed
Psychiatry following
Consider rehab
CT head findings noted
Lyme serology pending
ESR and CRP not significantly elevated
Consider brain MRI
Consider neurology evaluation
Follow hemoglobin
Transfuse if needed
Monitor blood sugar
Insulin supplementation as needed
DVT prophylaxis-on low molecular weight heparin
Nutrition
Begin ambulation and mobility
If patient able to be weaned off Precedex and improving then could be transferred out of ICU-call pulmonary if respiratory issues arise
Critical care statement: A total of 40 minutes of critical care time was provided for this patient today. This includes management of unstable vital signs, evaluation of the patient at bedside, reviewing the patient's pertinent medical records
including radiographs, Precedex drip management, alcohol withdrawal treatment management, microbiology, laboratory evaluations, and discussion with primary team, consultants, pharmacy, nutrition, physical therapy, case management, charge nurse,
critical care nursing, and respiratory therapy.
Data:
CT head 10/09/2024:
1. Mild to moderate symmetric low-attenuation in the periventricular white matter of the frontal lobes which has increased since 07/02/2022. Diagnostic possibilities are (1) white matter leukoaraiosis, (2) demyelinating disease, (3) vasculitis, or
(4) Lyme disease.
2. Mild cerebellar volume loss.
3. No CT evidence for acute intracranial hemorrhage, intracranial mass, or hydrocephalus.
Subjective Dataa
Subjective Data
Date of Service:
Date of Service: October 12, 2024
Chief Complaint: Special Ed Assistant Follow Up and Pulmonary Follow Up
Subjective:
More alert, oriented, less agitated, better off Precedex, Ativan did not help significantly, no complaints of shortness of breath, chest pain or abdominal pain
Review of Systems
General: Other (Per HPI)
Objective Data
Data Reviewed
Vital Signs / I&O / Oxygen:
Vital Signs
Temp Pulse Resp BP Pulse Ox
98.0 F 108 16 121/79 97
10/12/24 03:39 10/12/24 06:09 10/12/24 02:00 10/12/24 06:09 10/12/24 00:15
Intake and Output
10/11/24 10/12/24 10/13/24
06:59 06:59 06:59
Intake Total 3029.8 / 3117.9 3488.3 / 3488.3
Output Total 1849 / 1849
Balance 3029.8 / 3117.9 1638.3 / 1638.3
SaO2 97
Physical Exam
General: Respiratory Distress (negative), Comfortable, Chills (negative) and Sweats (negative)
HEENT: Normocephalic and Anicteric
Cardiovascular: Regular Rhythm (Tachycardia) and Peripheral Edema (negative)
Respiratory: Clear, Wheeze (negative), Crackles (negative), Rhonchi (negative) and Non-Labored Respirations
GI: Soft, Non Distended, Non Tender and Normal Bowel Sounds
Neurology: Awake, Alert and No Motor Deficits
Skin: Warm, Dry, Cyanosis (negative) and Jaundice (negative)
Labs/Micro/Reports
Lab Data
10/12/24 03:32
10/12/24 03:32
--- NOTE | 2024-10-12 08:00 | PTCARENOTE ---
recd pt, restless, fidgety, see assessment. reviewed plan, using call boswell appropriately. remorseful at times. cooperative with care and very directable at present.
[2024-10-12] MEDS: PROTONIX IV 40 MG IV (08:07)
[2024-10-12] MEDS: KEPPRA 1000 MG IV (08:07)
[2024-10-12] MEDS: THIAMINE INJECTION 200 MG IV (08:07)
[2024-10-12] MEDS: MAGNESIUM SULFATE 102 GRAMS IV (08:07)
--- NOTE | 2024-10-12 09:56 | W.PN.HOSP.TC ---
Today's Communication/Plan
-
see note
possible d/c today
Assessment / Plan
Assessment / Plan
CT head
Mild to moderate symmetric low-attenuation in the periventricular white matter of the frontal lobes which has increased since 07/02/2022. Diagnostic possibilities are (1) white matter leukoaraiosis, (2) demyelinating disease, (3) vasculitis, or (4)
Lyme disease.

1. Acute toxic metabolic encephalopathy - resolved
-likely from alcohol withdrawal vs post ictal state vs other
-CT head finding as above
-check lyme serology, clinically less likely - pending result
-treatment of alcohol withdrawal as below
2. Seizure
h.o of seizure disorder
-patient have reported h/o of GTCS in past and was supposed to be on AED, patient have stopped taking it
-witnessed seziure by one of the son? before coming to ER
-Neurology recommended Keppra 1g BID, no orders were placed in ER, started from 10/10 noon.
-EEG per neurology recommendation
-will defer MRI brain w/o contrast as patient not interested in further testing.
-Patient agreeable to remain on Keppra at discharge.
3. Alcohol withdrawal - resolved
-Patient will require history and drinks a small bottle of wine/few beer on single day. not daily per patient. last drink reported to me on 10/05
-Patient does have history of previous alcohol use and withdrawal apparently
-Patient required significant support of Precedex/phenobarb/Ativan for last 72 hours
-Clinically much better today and off of Precedex drip. Continue phenobarb oral tapering course
-Discussed [facility] referral and patient is willing to try
4. Diarrhea
-not associated with abdominal pain/afebrile
-Normal wbc
-Monitor and if have persistent symptoms, will collect further stool testing
-Notes from previous visits reviewed and patient does have history of diarrhea in the past as well
5. Hyponatremia -resolved
-presumed euvolemic in nature
-f/u labs pending today
6. Hypokalemia
- replace PRN
7. Hypercalcemia
-f/u post IVF, lab pending today
8. Hypomagnesemia
-Mag 1.2 - ordered 1g _ will not be enough and ordering more 2g
Full code
Lovenox
Possible d/c today
Anticipated Discharge: Today
Subjective/Interval History
-
Date of Service: October 12, 2024
Patient mentation much better, coherent. no reported issues overnight
denies abd pain/nausea/vomiting
no other issues
Objective Data
-
Labs:
Laboratory Results
10/12/24
03:32
WBC 6.7
Hgb 12.1
Hct 32.8 L
Plt Count 134 D
Sodium 138
Potassium 4.0
Chloride 96 L
Carbon Dioxide 27
BUN 3 L
Creatinine 1.0
Glucose 158 H
Calcium 9.7
Vital Signs:
Vital Signs
Temp Pulse Resp BP Pulse Ox
99.0 F 133 16 144/110 99
10/12/24 08:00 10/12/24 09:03 10/12/24 02:00 10/12/24 09:03 10/12/24 08:00
I&O
10/11/24 10/12/24 10/13/24
06:59 06:59 06:59
Intake Total 3029.8 / 3117.9 3488.3 / 3488.3
Output Total 1850 / 1850
Balance 3029.8 / 3117.9 1638.3 / 1638.3
Review of Systems
-
Respiratory: Reports No Symptoms
Cardiac: Reports No Symptoms
Abdomen/GI: Reports No Symptoms
Physical Exam
-
General: No Apparent Distress and Comfortable
HEENT: Negative Oxygen
Neuro: Awake, Alert, Oriented, No Motor Deficits and Nonfocal/Grossly Intact
Psych: Confused
[2024-10-12] MEDS: LOPRESSOR 25 MG PO (10:04)
[2024-10-12] MEDS: MAGNESIUM SULFATE 50 IV (10:50)
--- NOTE | 2024-10-12 12:09 | PTOTSP ---
Pt is able to get OOB and amubulate in hallway with steady gait without need for any assistive devices. No acute PT needs were identified. PT will sign off.
--- NOTE | 2024-10-12 12:10 | PTOTSP ---
pt currently requires no assistance to complete simple ADLs, functional transfers, ambulation. pt does not demonstrate any acute OT needs at this time, will sign off.
--- NOTE | 2024-10-12 12:30 | PTCARENOTE ---
updates with patient and SO bedside. Discussed BP with Dr. Peres, meds ordered and given, questions answered for patient. comfortable with plan of going home. after meds given, BP improving. pt without complaint, denies ALCARAZ. less tremulous.
[2024-10-12] MEDS: PROCARDIA XL (EXTENDED RELEASE) 30 MG PO (13:32)
--- NOTE | 2024-10-12 13:53 | CM ---
CM following re: discharge planning.
Discussed in Rounds, reviewed pt's chart, met with pt and pt's SO at bedside.
pt is a 33 year old female, admitted with primary dx of alcohol use disorder with withdrawal seizure.
pt reports she lives with boyfriend Domenico and 2 children 4 and 7 year of age in a 2SH, 2 steps to enter. 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
Pt admitted to history of alcohol abuse, drinking wine and beer on a regular basis. Pt denied drinking daily. In the beginning of the interview, pt expressed no interest to talk about her drinking habits and as interview progresses, pt stated she
needs to stop drinking. Pt stated she cannot go to inpatient D[facility] rehab because she has to take care of her children. Pt expressed her agreement to meet with [facility] team. A referral to [facility] made, spoke to CAM Mott and he met with pt this morning.
Pt declined inpatient [facility] rehab and agrees to follow up with [facility] on an outpatient level.
Discharge order noted. Noth pt and her SO are aware.
PCP: pt stated she does not have PCP: Resources provided.
Pharmacy: [facility].
D/C plan: home with [facility] to follow and family support. SO to transport.
--- NOTE | 2024-10-12 14:47 | PTCARENOTE ---
awaiting discharge, anxious to leave. no other change, VS stable, aware of plans.
[2024-10-12 15:46] LABS: Lyme Antibody Screen, EIA Negative (Negative)
--- NOTE | 2024-10-12 16:28 | W.PN.UPDATE ---
Update Note
Progress Note Update
Pt seen this morning, chart reviewed. Pt alert, calm, cooperative, sensorium appears intact, no agitation or confusion evident. Pt on Phenobarb taper; was reportedly more confused on Ativan 2 days ago. Pt was seen by Neurology 10/09, recommended
Keppra due to hx of seizure. Pt also has abnormal frontal white matter findings on head CT, significance is unclear. Mood stable, pt denies acute anxiety or depression.
Imp/Rec: Alcohol abuse, withdrawal seizure
TME, resolved. Would continue current mgt. Psychiatry will sign off
--- NOTE | 2024-10-12 16:29 | PTCARENOTE ---
discharged to home via wc. sister Destinee arrived for transport, instructions reviewed. primary MD listed on form not her current primary. number obtained for several other options including [facility] and Family practice residents at
[facility]. verbalizes understanding of plan, meds, etc. left via wc with all belongings to family vehicle.
--- NOTE | 2024-10-13 08:19 | W.DCSUMMARY ---
Discharge Summary
Discharge Data
Date of Admission: 10/09/24
Date of Discharge: 10/12/24
-
Pending Results: No
Hospital Course
Discharging Physician : Dr Oswaldo Peres
Disposition : To home
Primary care physician : [facility]
Principal Discharge diagnosis :
Acute delirium from alcohol withdrawal
Seizure episode
Chronic diarrhea
Hyponatremia
Hypokalemia
Hypercalcemia
Hypomagnesemia
Essential hypertension
Chronic Discharge diagnosis :
Alcohol use disorder
History of seizures
History of medication noncompliance
Hospital Course :
Patient is a 33-year-old female with above-mentioned past medical history was brought into ER after patient was noted to having a seizure. Patient has history of previous episodes of seizures and have been noncompliant with medication. Patient
also problem with alcohol use disorder and drinks a small bottle of wine on weekends. In ER quick workup suggestive of patient having postictal state Hypotension of developing alcohol withdrawal. Neurology was involved in care and patient was
started on Keppra. Patient was admitted to intermediate care unit on phenobarb/Ativan protocol. Unfortunately patient was significantly delirious and required restraining and further was on Haldol as well. Later patient was moved to ICU and was
started on Precedex drip. Patient had improvement in symptoms in 48 hours and because she was involved to help patient with alcohol use issues. At discharge patient was provided a tapering course of phenobarbital.
Per patient seizure MRI brain was discussed but patient was not interested, patient willing to continue taking Keppra. Patient will require further workup with MRI/EEG if patient have any further episode. Patient was educated on need of alcohol
abstinence to help prevent future seizure episodes.
Patient also had diarrhea which has been chronic, likely due to alcohol use related as well. Will need to follow-up with gastroenterology office if continues to have diarrhea despite alcohol cessation.
Important imaging findings :
None
Procedure findings :
None
Discharge Plan
-
Patient Disposition: Home (Routine Discharge)
Discharge Diagnosis/Procedures: Alcohol withdrawal, seizure
Condition: Fair
Diet: Regular
Activity: As tolerated
Driving Restrictions: No driving until cleared by neurology office
Bathing Restrictions: OK to Shower
Referrals:
Luiz Lackey MD [Active] - in two to four weeks
Philippe Palmer DO [Family Provider] - in one week
Additional Discharge Medication Instructions: STOP TAKING PHENOBARBITAL IF DRINK ALCOHOL
Prescriptions:
New
metoprolol tartrate 25 mg Tablet
25 mg PO BID Qty: 60 1RF
nifedipine [Procardia XL] 30 mg tablet extended release 24hr
30 mg PO DAILY Qty: 30 1RF
levetiracetam [Keppra] 1,000 mg tablet
1,000 mg PO BID Qty: 60 1RF
phenobarbital 32.4 mg tablet
See Rx Instructions .ROUTE .COMPLEX Qty: 18 0RF
Rx Instructions:
Take 2 Tab/3 times a day for 2 days THEN
Take 1 Tab/3 times a day for 2 days
Discharge Orders:
Discharge Patient (As Directed); Ordered 10/12/24
Ordered By: Oswaldo Peres
Discharge Date and Time
Discharge Date/Time: 10/12/24 16:32
Print Language: HEBREW
== END 2024-10-12 16:32 | disposition home or self-care (01) | DRG 896 ==
LOC: ICU 13:20
PROVIDERS: Nurse Practitioner Family; Nurse Practitioner Gerontology; ADMITTING PHYSICIAN Hospitalist; ATTENDING PHYSICIAN Hospitalist; CONSULT PHYSICIAN Internal Medicine Critical Care Medicine; CONSULT PHYSICIAN Psychiatry & Neurology Neurology; EMERGENCY PHYSICIAN Emergency Medicine; FAMILY PHYSICIAN Family Medicine; OTHER PHYSICIAN Psychiatry & Neurology Psychiatry
DX: F10.232 Alcohol dependence with withdrawal with perceptual disturbance (principal); G92.8 Other toxic encephalopathy; I16.1 Hypertensive emergency; E87.1 Hypo-osmolality and hyponatremia; G40.109 Localization-related (focal) (partial) symptomatic epilepsy and epileptic syndromes with simple partial seizures, not intractable, without status epilepticus; F32.A Depression, unspecified; F41.9 Anxiety disorder, unspecified; D69.6 Thrombocytopenia, unspecified; E87.6 Hypokalemia; E83.52 Hypercalcemia; K21.9 Gastro-esophageal reflux disease without esophagitis; G40.409 Other generalized epilepsy and epileptic syndromes, not intractable, without status epilepticus; R45.1 Restlessness and agitation
CPT/HCPCS: 70450; 71045; 80048; 80053; 80143; 80179; 80306; 80307; 81003; 82077; 82248; 82550; 82805; 82962; 83605; 83690; 83735; 84100; 84703; 85025; 85027; 85610; 85652; 85730; 86140; 86618; 93005; 96361; 96374; 96375; 96376; 97163; 97165; 99291

== ENCOUNTER 2025-03-12 17:38 | Inpatient (IN) | payer OTHER, SELFPAY ==
[2025-03-12] VITALS (21 sets, daily range): BP systolic 136–225; BP diastolic 88–134; BMI 20.8; BMI 19.9
--- NOTE | 2025-03-12 12:37 | ED.GENMED ---
History of Present Illness
<KATHERINE Craig - Last Filed: 03/13/25 19:55>
General
Chief Complaint: Alcohol Problem
Source: patient
Exam Limitations: none
Time Seen by Provider: 03/12/25 12:20
Nursing documentation reviewed up to this point in time: agreed with
History of Present Illness
History of Present Illness:
Patient is a 34-year-old female with history of alcohol abuse, hypertension anxiety presents to the ER for evaluation. She is here for detox from alcohol. She typically drinks wine and beer.
Patient is very anxious and tearful on exam reports for the past 1 week she has been drinking heavily because of recent personal issues. She complains of feeling very anxious presently. She is supposed to take her blood pressure medicine however
she has not taken any meds for about 5 months. She is unsure of the name of the blood pressure medicine.
She does report prior history of alcohol withdrawal seizures.
She did drink 3 beers this morning prior to coming to the ER and typically she does not usually drink that early.
She does reports she fell down the steps over a week ago and has sore right wrist and ankle. no other injuries.
Past History
<KATHERINE Craig - Last Filed: 03/13/25 19:55>
Past History
ED Past Medical History: HTN, Seizures, Psychiatric (anxiety, depression, ADHD) and Other (Recurrent syncope)
ED Past Surgical History: and Other (Breast augmentation, )
Social History
Tobacco: Former smoker
Alcohol: Occasional
Drug: None
Personal: Single
Living: with family
Family History
Family History: Other (Reviewed and noncontributory)
Review of Systems
<KATHERINE Craig - Last Filed: 03/13/25 19:55>
Review of Systems
Allergies reviewed?: Yes
All Other Systems: ROS reviewed and negative except as documented in HPI and ROS
Constitutional: Reports no symptoms
Respiratory: Reports no symptoms
Cardiac: Reports no symptoms
ABD/GI: Reports no symptoms; Denies nausea or vomiting
: Reports no symptoms
Musculoskeletal: Reports other (sore right wrist/wilbert )
Neurological: Denies dizzy or headache
Psychiatric: Reports anxiety; Denies suicidal
Phy Exam
<KATHERINE Craig - Last Filed: 03/13/25 19:55>
General Physical Exam
General Presentation: no apparent distress
General age: appears stated age
General Skin: warm and dry
General Habitus: normal
General Mental: alert
General Hydration: appears well hydrated
Cardiovascular Exam
Cardiovascular Exam: tachycardia
Pulmonary Exam
Pulmonary Exam: lungs clear and no respiratory distress
Neurological Exam
Neurological Exam: alert, oriented x3, no motor deficits, no sensory deficits, speech normal and other (No visible tremors)
Roma Coma Scale
Eye Opening: Spontaneous
Verbal Response: Oriented
Motor Response: Obeys Commands
GCS Total Score: 15
Musculoskeletal Exam
Musculoskeletal Exam: full ROM
Skin Exam
Skin Exam: normal color and warm/dry
Psychiatric Exam
Psychiatric Exam: anxious
Scores
<KATHERINE Craig - Last Filed: 03/13/25 19:55>
Withdrawal Assessment of Alcohol
Withdrawal Assessment Completed?: Yes
Nausea and Vomiting: No nausea and no vomiting
Tactile Disturbances: None
Tremor: No tremor
Auditory Disturbances: Not present
Paroxysmal Sweats: No sweat visible
Visual Disturbances: Not present
Anxiety: Mild anxiety
Headache, Fullness in Head: Not present
Agitation: Normal activity
Orientation and clouding of sensorium: Oriented and can do serial additions
Total CIWA Score: 1
Alcohol Withdrawal Medication Recommendation: Equal to MSAS Score 0-4. Monitor & re-assess q2hrs, NO MEDICATION NEEDED
Course
<KATHERINE Craig - Last Filed: 03/13/25 19:55>
Orders/Labs/Results
Orders:
Orders
03/12/25 12:34
Alcohol Urgent
CMP [Comprehensive Metabolic Panel] Urgent
Complete Blood Count/With Diff Urgent
HCG, Serum Qualitative Screen Urgent
Comment: ADDON
Serum Osmolality Urgent
Comment: ADD ON
TSH Reflex To Free T4 Urgent
Comment: ADD ON
03/12/25 12:47
Lorazepam [Ativan] 1 mg IV NOW STA
03/12/25 12:48
0.9% Sodium Chloride 1000 ml [Nss] 1,000 ml IV BOLUS
03/12/25 13:15
Add On- LAB Urgent
Tests Added?: serum HCG qualitative
03/12/25 13:40
Osmolality, Random Urine Urgent
Date Specimen was Collected: 03/12/25
Time Specimen was Collected: 13:37
Comment: ADD ON
Urine Drug Abuse Screen Urgent
Date Specimen was Collected: 03/12/25
Time Specimen was Collected: 13:37
Urine Sodium Urgent
Date Specimen was Collected: 03/12/25
Time Specimen was Collected: 13:37
Comment: ADD ON
03/12/25 14:19
Add On- LAB Urgent
Tests Added?: tsh with relexive t4
03/12/25 14:29
Labetalol HCl [Trandate] 10 mg 0.9% Sodium Chloride 50 ml [Nss] 50 ml IV NOW
Lorazepam [Ativan] 2 mg IV NOW STA
03/12/25 14:43
Labetalol HCl [Trandate] 10 mg IV NOW STA
03/12/25 14:45
Add On- LAB Urgent
Tests Added?: urine Na, urine osmo, serum osmo, tsh with free t4 reflex
03/12/25 14:47
Potassium Chloride [KCl] 40 meq PO NOW STA
03/12/25 Dinner
Regular
At Your Request: Full Participation
0.9% Sodium Chloride 1000 ml [Nss] 1,000 ml Mvi, Adult [Multivitamin] 10 ml Thiamine Injection 100 mg IV 150 mls/hr
03/12/25 15:52
Admit/Transfer Patient As Directed
Co-Sign Provider:
Level of Care: Inpatient admission
Assign to:: IMU- Intermediate Care
Physician / Group: diane becker
Diagnosis: Alcohol abuse/withdrawal, depression, hypokalemia, hypo-NA
Reason for Hospitalization: Alcohol abuse/withdrawal, depression, hypokalemia, hypo-NA
Expected length of stay greater than two midnights?: Yes
ELOS- Estimated Length of Stay in days: 5
I certify the patient meets the requirements for IP care: Yes
Code Status As Directed
Resuscitation Status: Full Code
03/12/25 15:58
PRN Pain Medication Management As Directed
May give lesser potent ordered pain med per pt: Yes
preference::
Protocol:: Medication orders for pain may be administered in a
manner that supports deferring to patient preference
when the pt is:
- Requesting an ordered lesser potent pain medication.
Least to most potent pain medications are defined
as: acetaminophen < NSAID < tramadol < opioids
(morphine, oxycodone, hydromorphone).
- Requesting a lesser dose of the same medication IF
ORDERED.
- Requesting a less intrusive route of administration
if both routes are prescribed by the provider (PO <
IV).
03/12/25 15:59
Case Management Consult ONCE
Case Management Consult: Discharge Planning
Comment: Patient wanting dual diagnosis depression and alcohol rehab Jr [phone] would like to
be notified her sister Destinee [phone] has been helping her
03/12/25 17:00
Nicotine [Nicoderm Transdermal] 21 mg TRANSDERM DAILY
03/12/25 18:25
0.9% Sodium Chloride [Nss (Preservative Free)] See Protocol IV PRN PRN
Acetaminophen [Tylenol] 650 mg PO Q4HPRN PRN
Enoxaparin Sodium [Lovenox] 40 mg SC QPM
FOLic ACID [Folvite] 1 mg 0.9% Sodium Chloride 50 ml [Nss] 50 ml IV DAILYPRN
Labetalol HCl [Trandate] 10 mg IV Q6HPRN PRN
Lorazepam [Ativan] 1 mg IV Q1HPRN PRN
Lorazepam [Ativan] 1 mg PO Q2HPRN PRN
Lorazepam [Ativan] 2 mg IV Q1HPRN PRN
Ondansetron Injectable [Zofran] 4 mg IV Q6HPRN PRN
Phenobarbital Sodium [Phenobarbital] 260 mg 0.9% Sodium Chloride 100 ml [Nss] 100 ml IV NOW
Thiamine Injection 200 mg IV Q8
03/12/25 18:25
Case Management Consult Once
Case Management Consult: Other
Comment: Substance abuse counseling
DIETARY IP CONSULT Routine
Reason for Consult: Nutrition support, possible refeeding guidelines
B-Hydroxybutyrate Urgent
GGTP Urgent
Magnesium Urgent
Phosphorus Urgent
Urinalysis Routine
Date Specimen was Collected: 03/13/25
Time Specimen was Collected: 03:34
Activity As Directed
Activity Level: As Tolerated
Intake/ Output As Directed
Frequency: Per unit guidelines
MSAS SCORE As Directed
MSAS Score 0-4: Repeat MSAS every 2 hours until 0-4 for three consecutive assessments, then every 4 hours x 48
hours.
MSAS Score 5-7: For MILD withdrawl symptoms. Repeat MSAS and RASS every 2 hours
MSAS Score 8-11: For MODERATE withdrawal symptoms. Repeat MSAS and RASS every 1 hour. Consider ICU or IMU
level of care.
MSAS Score > 11: For SEVERE withdrawal symptoms. Repeat MSAS and RASS every 1 hour. Notify provider, consider
ICU level of care.
MSAS Additional Instructions: If no improvement or no decrease in score from severe to moderate within 12
hours, consult psychiatry
MSAS Notify Provider: Notify provider if patient requires more than 10 mg of Lorazepam in eight hour period.
Vital Signs As Directed
Frequency: Per unit guidelines
Ot Eval And Treat Routine
Pt Eval And Treat Routine
Activity Level: As Tolerated
DX Deep Vein Thrombosis Video Routine
03/12/25 20:00
Metoprolol [Lopressor] 25 mg PO BID
NIFEdipine EXTENDED RELEASE [Procardia Xl (Extended Release)] 30 mg PO DAILY
03/12/25 21:00
0.9% Sodium Chloride 1000 ml [Nss] 1,000 ml IV 100 mls/hr
03/12/25 22:00
Phenobarbital Sodium [Phenobarbital] 97.5 mg IV TID
03/12/25 22:57
PTT Urgent
Prothrombin Time Urgent
03/13/25 03:45
Comprehensive Metabolic Panel IN AM
03/13/25 03:46
Complete Blood Count/With Diff IN AM
03/13/25 08:00
FOLic ACID [Folvite] 1 mg PO DAILY
norethindrone-e.estradiol-iron [Sera Bloom .04/23 ()] See Dose Instructions PO DAILY
03/13/25 09:00
CR Ankle - Right Min 3 Views * Urgent
Reason For Exam: trauma
03/13/25 14:25
CR Wrist - Right Min 3 Views Urgent
Reason For Exam: trauma
03/14/25 06:00
Complete Blood Count/With Diff IN AM
Comprehensive Metabolic Panel IN AM
03/14/25 22:00
Phenobarbital [Luminal] 64.8 mg PO TID
03/15/25 06:00
Complete Blood Count/With Diff IN AM
Comprehensive Metabolic Panel IN AM
03/15/25 20:00
Thiamine HCl [Vitamin B1] 100 mg PO BID
03/16/25 06:00
Complete Blood Count/With Diff IN AM
Comprehensive Metabolic Panel IN AM
03/16/25 22:00
Phenobarbital [Luminal] 32.4 mg PO TID
Abnormal Lab Results
03/12/25 03/12/25
12:34 13:40
RBC 3.40 L 10^6/uL
(4.20-5.40)
Hct 32.5 L %
(37.0-47.0)
MCH 35.6 H pg
(27.0-31.0)
MCHC 37.2 H g/dL
(33.0-37.0)
Absolute Neuts (auto) 7.1 H 10^3/uL
(1.4-6.5)
Absolute Monos (auto) 1.1 H 10^3/uL
(0.1-0.6)
Lymphocytes % 12.1 L %
(20.5-51.1)
Monocytes % 11.1 H %
(1.7-9.3)
Sodium 127 L mmol/L
(135-145)
Potassium 3.3 L mmol/L
(3.5-5.1)
Chloride 84 L mmol/L
(98-107)
Glucose 153 H mg/dl
(70-99)
Serum Osmolality 342 H mOsm/kg
(275-300)
AST 70 H U/L
(14-36)
Alkaline Phosphatase 139 H U/L
(38-126)
Urine Osmolality 166 L mOsm/kg
(300-900)
Urine Sodium 14 L mmol/L
(30-90)
03/12/25 12:34
03/12/25 12:34
Vital Signs
Initial and Last Documented VS:
Initial Vital Signs
Temp Pulse Resp Pulse Ox
98.2 F 139 20 97
03/12/25 12:04 03/12/25 12:04 03/12/25 12:04 03/12/25 12:04
Last Documented Vital Signs
Temp Pulse Resp BP Pulse Ox
98.7 F 97 16 178/112 98
03/13/25 15:53 03/13/25 18:00 03/13/25 18:00 03/13/25 18:00 03/13/25 16:04
Reference Librarian consulted with Physician
Reference Librarian consulted with physician?: Yes
Name of Physician Consulted: arthur
<Philippe Salcedo MD - Last Filed: 03/12/25 15:13>
Orders/Labs/Results
Orders:
Orders
03/12/25 12:34
Alcohol Urgent
CMP [Comprehensive Metabolic Panel] Urgent
Complete Blood Count/With Diff Urgent
HCG, Serum Qualitative Screen Urgent
Comment: ADDON
Serum Osmolality Urgent
Comment: ADD ON
TSH Reflex To Free T4 Urgent
Comment: ADD ON
03/12/25 12:47
Lorazepam [Ativan] 1 mg IV NOW STA
03/12/25 12:48
0.9% Sodium Chloride 1000 ml [Nss] 1,000 ml IV BOLUS
03/12/25 13:15
Add On- LAB Urgent
Tests Added?: serum HCG qualitative
03/12/25 13:40
Osmolality, Random Urine Urgent
Date Specimen was Collected: 03/12/25
Time Specimen was Collected: 13:37
Comment: ADD ON
Urine Drug Abuse Screen Urgent
Date Specimen was Collected: 03/12/25
Time Specimen was Collected: 13:37
Urine Sodium Urgent
Date Specimen was Collected: 03/12/25
Time Specimen was Collected: 13:37
Comment: ADD ON
03/12/25 14:19
Add On- LAB Urgent
Tests Added?: tsh with relexive t4
03/12/25 14:29
Labetalol HCl [Trandate] 10 mg 0.9% Sodium Chloride 50 ml [Nss] 50 ml IV NOW
Lorazepam [Ativan] 2 mg IV NOW STA
03/12/25 14:43
Labetalol HCl [Trandate] 10 mg IV NOW STA
03/12/25 14:45
Add On- LAB Urgent
Tests Added?: urine Na, urine osmo, serum osmo, tsh with free t4 reflex
03/12/25 14:47
Potassium Chloride [KCl] 40 meq PO NOW STA
03/12/25 Dinner
Regular
At Your Request: Full Participation
0.9% Sodium Chloride 1000 ml [Nss] 1,000 ml Mvi, Adult [Multivitamin] 10 ml Thiamine Injection 100 mg IV 150 mls/hr
03/12/25 15:52
Admit/Transfer Patient As Directed
Co-Sign Provider:
Level of Care: Inpatient admission
Assign to:: IMU- Intermediate Care
Physician / Group: diane becker
Diagnosis: Alcohol abuse/withdrawal, depression, hypokalemia, hypo-NA
Reason for Hospitalization: Alcohol abuse/withdrawal, depression, hypokalemia, hypo-NA
Expected length of stay greater than two midnights?: Yes
ELOS- Estimated Length of Stay in days: 5
I certify the patient meets the requirements for IP care: Yes
Code Status As Directed
Resuscitation Status: Full Code
03/12/25 15:58
PRN Pain Medication Management As Directed
May give lesser potent ordered pain med per pt: Yes
preference::
Protocol:: Medication orders for pain may be administered in a
manner that supports deferring to patient preference
when the pt is:
- Requesting an ordered lesser potent pain medication.
Least to most potent pain medications are defined
as: acetaminophen < NSAID < tramadol < opioids
(morphine, oxycodone, hydromorphone).
- Requesting a lesser dose of the same medication IF
ORDERED.
- Requesting a less intrusive route of administration
if both routes are prescribed by the provider (PO <
IV).
03/12/25 15:59
Case Management Consult ONCE
Case Management Consult: Discharge Planning
Comment: Patient wanting dual diagnosis depression and alcohol rehab Jr [phone] would like to
be notified her sister Destinee [phone] has been helping her
03/12/25 17:00
Nicotine [Nicoderm Transdermal] 21 mg TRANSDERM DAILY
03/12/25 18:25
0.9% Sodium Chloride [Nss (Preservative Free)] See Protocol IV PRN PRN
Acetaminophen [Tylenol] 650 mg PO Q4HPRN PRN
Enoxaparin Sodium [Lovenox] 40 mg SC QPM
FOLic ACID [Folvite] 1 mg 0.9% Sodium Chloride 50 ml [Nss] 50 ml IV DAILYPRN
Labetalol HCl [Trandate] 10 mg IV Q6HPRN PRN
Lorazepam [Ativan] 1 mg IV Q1HPRN PRN
Lorazepam [Ativan] 1 mg PO Q2HPRN PRN
Lorazepam [Ativan] 2 mg IV Q1HPRN PRN
Ondansetron Injectable [Zofran] 4 mg IV Q6HPRN PRN
Phenobarbital Sodium [Phenobarbital] 260 mg 0.9% Sodium Chloride 100 ml [Nss] 100 ml IV NOW
Thiamine Injection 200 mg IV Q8
03/12/25 18:25
Case Management Consult Once
Case Management Consult: Other
Comment: Substance abuse counseling
DIETARY IP CONSULT Routine
Reason for Consult: Nutrition support, possible refeeding guidelines
B-Hydroxybutyrate Urgent
GGTP Urgent
Magnesium Urgent
Phosphorus Urgent
Urinalysis Routine
Date Specimen was Collected: 03/13/25
Time Specimen was Collected: 03:34
Activity As Directed
Activity Level: As Tolerated
Intake/ Output As Directed
Frequency: Per unit guidelines
MSAS SCORE As Directed
MSAS Score 0-4: Repeat MSAS every 2 hours until 0-4 for three consecutive assessments, then every 4 hours x 48
hours.
MSAS Score 5-7: For MILD withdrawl symptoms. Repeat MSAS and RASS every 2 hours
MSAS Score 8-11: For MODERATE withdrawal symptoms. Repeat MSAS and RASS every 1 hour. Consider ICU or IMU
level of care.
MSAS Score > 11: For SEVERE withdrawal symptoms. Repeat MSAS and RASS every 1 hour. Notify provider, consider
ICU level of care.
MSAS Additional Instructions: If no improvement or no decrease in score from severe to moderate within 12
hours, consult psychiatry
MSAS Notify Provider: Notify provider if patient requires more than 10 mg of Lorazepam in eight hour period.
Vital Signs As Directed
Frequency: Per unit guidelines
Ot Eval And Treat Routine
Pt Eval And Treat Routine
Activity Level: As Tolerated
DX Deep Vein Thrombosis Video Routine
03/12/25 20:00
Metoprolol [Lopressor] 25 mg PO BID
NIFEdipine EXTENDED RELEASE [Procardia Xl (Extended Release)] 30 mg PO DAILY
03/12/25 21:00
0.9% Sodium Chloride 1000 ml [Nss] 1,000 ml IV 100 mls/hr
03/12/25 22:00
Phenobarbital Sodium [Phenobarbital] 97.5 mg IV TID
03/12/25 22:57
PTT Urgent
Prothrombin Time Urgent
03/13/25 03:45
Comprehensive Metabolic Panel IN AM
03/13/25 03:46
Complete Blood Count/With Diff IN AM
03/13/25 08:00
FOLic ACID [Folvite] 1 mg PO DAILY
norethindrone-e.estradiol-iron [Sera Bloom ()] See Dose Instructions PO DAILY
03/13/25 09:00
CR Ankle - Right Min 3 Views * Urgent
Reason For Exam: trauma
03/13/25 14:25
CR Wrist - Right Min 3 Views Urgent
Reason For Exam: trauma
03/14/25 06:00
Complete Blood Count/With Diff IN AM
Comprehensive Metabolic Panel IN AM
03/14/25 22:00
Phenobarbital [Luminal] 64.8 mg PO TID
03/15/25 06:00
Complete Blood Count/With Diff IN AM
Comprehensive Metabolic Panel IN AM
03/15/25 20:00
Thiamine HCl [Vitamin B1] 100 mg PO BID
03/16/25 06:00
Complete Blood Count/With Diff IN AM
Comprehensive Metabolic Panel IN AM
03/16/25 22:00
Phenobarbital [Luminal] 32.4 mg PO TID
Abnormal Lab Results
03/12/25 03/12/25
12:34 13:40
RBC 3.40 L 10^6/uL
(4.20-5.40)
Hct 32.5 L %
(37.0-47.0)
MCH 35.6 H pg
(27.0-31.0)
MCHC 37.2 H g/dL
(33.0-37.0)
Absolute Neuts (auto) 7.1 H 10^3/uL
(1.4-6.5)
Absolute Monos (auto) 1.1 H 10^3/uL
(0.1-0.6)
Lymphocytes % 12.1 L %
(20.5-51.1)
Monocytes % 11.1 H %
(1.7-9.3)
Sodium 127 L mmol/L
(135-145)
Potassium 3.3 L mmol/L
(3.5-5.1)
Chloride 84 L mmol/L
(98-107)
Glucose 153 H mg/dl
(70-99)
Serum Osmolality 342 H mOsm/kg
(275-300)
AST 70 H U/L
(14-36)
Alkaline Phosphatase 139 H U/L
(38-126)
Urine Osmolality 166 L mOsm/kg
(300-900)
Urine Sodium 14 L mmol/L
(30-90)
03/12/25 12:34
03/12/25 12:34
Vital Signs
Initial and Last Documented VS:
Initial Vital Signs
Temp Pulse Resp Pulse Ox
98.2 F 139 20 97
03/12/25 12:04 03/12/25 12:04 03/12/25 12:04 03/12/25 12:04
Last Documented Vital Signs
Temp Pulse Resp BP Pulse Ox
98.7 F 97 16 178/112 98
03/13/25 15:53 03/13/25 18:00 03/13/25 18:00 03/13/25 18:00 03/13/25 16:04
<KATHERINE Craig - Last Filed: 03/13/25 19:55>
MDM/Problems Addressed
Differential Diagnosis Includes:
Not limited to alcohol abuse, alcohol
MDM/Problems Addressed:
As documented patient is a 34-year-old female history of alcohol abuse presenting for detox. Patient does have a history of alcohol withdrawal seizures however did drink prior to arrival this morning. Patient presents very anxious however does not
feel that she is in withdrawal. Not nauseous no sweating no visible tremors. With her drinking prior to arrival likely anxiety and not withdrawal. Patient was given fluids and Ativan however persistently tachycardic and hypertensive. Patient
does have a history of hypertension has not taken her meds in over 5 months and does not recall what she is on. Patient despite being persistently tachycardic and hypertensive does feel little less anxious and is calm and eating.
Case reviewed with ED physician second as of Ativan given along with IV labetalol and banana bag. Patient was found to be minimally hyponatremic with a sodium of 127 unremarkable CBC.
she does report she fell on the steps a week and a half ago and complains of soreness to the right wrist and right ankle no obvious deformity, will x-ray. denies headache. Denies head injury no obvious head injury on exam no bony cervical spine
tenderness patient will require hospitalization she does have a history of alcohol withdrawal seizures.
Chronic conditions affecting care:
History of alcohol abuse
<KATHERINE Craig - Last Filed: 03/13/25 19:55>
*Pulse Oximetry
Patient hypoxic: no
*Critical Care Note
Total Time (30-74mins, 75-104mins- exclusive of procedures): Not Applicable
ED Attending Note
<KATHERINE Craig - Last Filed: 03/13/25 19:55>
-
Portions of this chart may have been created with voice recognition software.� Occasional wrong word or��sound alike� substitutions may have occurred due to the inherent limitations of voice recognition software.
<Philippe Salcedo MD - Last Filed: 03/12/25 15:13>
ED Attending Note
Patient seen and examined by attending physician: Yes
I performed the substantive portion of visit, reviewed & personally made and approve the management plan that is documented in note by myself or ASHELY.: Yes
ED Attending Note:
34-year-old female presenting for help for alcohol. Some nausea jitteriness. Did drink this morning. No other specific complaints.
On exam patient is nontoxic. She is significantly hypertensive and tachycardic. She is warm and dry perfusing well. Lungs clear and equal. Heart tachycardic and regular no murmur. Abdomen soft and nontender. Mild tenderness to the right wrist.
Mild ecchymosis to the right thigh.
Impression is tachycardia hypertensive urgency, early withdrawal. Warrants inpatient management. Fluids, banana bag, Ativan, labetalol for blood pressure/heart rate.
Discharge Plan
Departure
Patient Disposition: Admit
Date of Disposition: 03/12/25
Time of Disposition: 14:37
Admit to doctor: hospitalist
Presentation/result/management discussed w/ accepting MD/DO: Hospitalist
Patient with high blood pressure during this ER visit?: Yes
Condition: Fair
Covid-19: Not Applicable
Discharge Problem:
Hypertension, Alcohol abuse, Acute hyponatremia
Interventions
Interventions:
*Risk Screen - Suicide Last Done: 03/12/25 12:07
*General Assessment Last Done: 03/12/25 12:07
*Neglect/Abuse Screening Last Done: 03/12/25 12:19
*ED- Fall Risk Assessment Last Done: 03/12/25 12:19
*ED COVID-19 Vaccine History Last Done: 03/12/25 12:19
*Nursing Disposition Last Done: 03/12/25 18:29
ED- Neurological Assessment Last Done: 03/12/25 12:19
ED-Psychological Assessment Last Done: 03/12/25 12:19
Discharge Date and Time
Discharge Date/Time: 03/12/25 18:29
[2025-03-12 12:39] LABS: % Basophils 0.9 % (0-2); % Eosinophils 0.5 % (0-6); % Immature Granulocytes 0.3 % (0-0.5); % Lymphocytes 12.1 % (20.5-51.1); % Monocytes 11.1 % (1.7-9.3); % Neutrophils 75.1 % (42.2-75.2); Absolute Basophils 0.1 10^3/uL (0-0.2); Absolute Eosinophils 0.1 10^3/uL (0-0.7); Absolute Lymphocytes 1.2 10^3/uL (1.2-3.4); Absolute Monocytes 1.1 10^3/uL (0.1-0.6); Absolute Neutrophils 7.1 10^3/uL (1.4-6.5); Hematocrit 32.5 % (37.0-47.0); Hemoglobin 12.1 g/dL (12.0-16.0); Mean Corp Hgb Conc. 37.2 g/dL (33.0-37.0); Mean Corpuscular Hgb 35.6 pg (27.0-31.0); Mean Corpuscular Volume 95.6 fL (81.0-99.0); Mean Platelet Volume 8.8 fL (7.4-10.4); Nucleated Red Blood Cells % 0 %; Platelet Count 220 10^3/uL (130-400); Red Cell Dist. Width 11.9 % (11.5-14.5); White Blood Cell Count 9.5 10^3/uL (4.8-10.8)
[2025-03-12 12:53] LABS: ALT (SGPT) 24 U/L (0-35); AST (SGOT) 70 U/L (14-36); Albumin 4.7 g/dl (3.5-5.0); Alkaline Phosphatase 139 U/L (38-126); Blood Urea Nitrogen 7 mg/dl (7-17); Calcium 9.1 mg/dl (8.4-10.2); Carbon Dioxide 25 mmol/L (22-30); Chloride 84 mmol/L (98-107); Estimated Creatinine Clearance 92 ml/min; Glucose 153 mg/dl (70-99); Potassium 3.3 mmol/L (3.5-5.1); Sodium 127 mmol/L (135-145); Total Bilirubin 1.3 mg/dl (0.2-1.3); Total Protein 6.9 g/dl (6.3-8.2); eGFR > 60.00
[2025-03-12] MEDS: NSS 1000 IV ×2 (12:53→21:52)
[2025-03-12] MEDS: ATIVAN 1 MG IV ×2 (12:54→20:00)
[2025-03-12 14:15] LABS: Amphetamines Negative (Negative); Barbiturates Negative (Negative); Benzodiazepines Negative (Negative); Buprenorphine Negative (Negative); Cocaine Negative (Negative); Marijuana Negative (Negative); Methadone Negative (Negative); Methamphetamines Negative (Negative); Opiates Negative (Negative); Phencyclidine Negative (Negative); Tricyclic Antidepressants Negative (Negative)
[2025-03-12 14:32] LABS: HCG, Serum Qualitative Screen Negative
[2025-03-12] MEDS: ATIVAN 2 MG IV (14:45)
[2025-03-12] MEDS: TRANDATE 10 MG IV (14:46)
--- NOTE | 2025-03-12 14:47 | HPS.HSE ---
Family Physician
-
Family Physician: Philippe Palmer
Chief Complaint
-
Alcohol abuse, anxiety, depression, right wrist right ankle pain
History of Present Illness
34-year-old female with history of alcohol abuse who presents to the ER for feeling anxious stating she wants to detox however she did drink before she came. He has been drinking daily for the past 16 years she has been drinking in excess over the
past 2 to 3 years 4 beers a day 7.5% alcoholic beer called [email or web address] IPA recently her has also noticed she has been buying multiple bottles of Listerine on [employer] and drinking them. He reports 2 weeks ago he told her that he wanted a
trial separation and had rented another home where she can stay he also hired a nanny that would go back and forth with the children from his home to her home to assist in childcare. She became very upset and started drinking more. He states that
is when she injured her right wrist and right ankle falling down the steps. The patient is willing to seek help for her alcohol abuse but also her depression. She went to [facility] outpatient after a brief admission in August 2024, but then
resumed drinking. She has a strong family history of addiction mother prior alcohol abuse current opiate addiction father from heroin overdose Sister former alcoholic and 1 brother addict unknown type. She has had multiple alcohol
withdrawal seizures from missing her beer in the a.m. She was on seizure medication but not taking them. Her states she had extreme anger with agitation requiring restraints with Keppra and phenobarbital prescribed by her PCP
She is noncompliant with blood pressure medication over the past 5 months. She has history of prior alcohol withdrawal seizures she did drink 3 beers this morning prior to coming to the ER. . She denies headache, sore throat, fever, chills, chest
pain, palpitations, cough, shortness of breath, abdominal pain, nausea, vomiting, diarrhea, urinary symptoms. She has past medical history of alcohol abuse, alcohol withdrawal seizures, depression, nicotine cigarette abuse 7 years ago half pack a
day current vape nicotine abuse
Medical History
Past Medical History
Past Medical History: Reports Other
Additional Past Medical History:
alcohol abuse
alcohol withdrawal seizures
depression
nicotine cigarette abuse 7 years ago half pack a day current vape nicotine abuse
Past Surgical History: Reports Other
Additional Past Surgical History:
section x 1
Breast augmentation
Tonsillectomy
Social History
Tobacco: Vaping ( nicotine cigarette abuse 7 years ago half pack a day current vape nicotine abuse)
Alcohol: Daily (4 beers perpetual troegs 7.5% plus drinking bottles of Listerine according to Channing)
Drug: None
Personal:
Living: With Family
Employment: Not Employed
Family History
Family History: Other (Father heroin overdose in his 40s, brother addiction unknown type, mother prior alcohol abuse current opiate addiction, sister recovering alcoholic, 1 sister healthy, one half brother no medical problems)
Allergies / Home Medications
Allergies reflects when Allergies were last updated in [facility].
Home Medications with original date entered in [facility]
Allergy/Medication List:
Medications on admission are unable to be verified or confirmed at this time.
Confirmed with [employer] he used to be on nifedipine ER 30 mg daily, Lopressor 25 mg twice daily stopped taking past 5 months
Review of Systems
-
History Source: Patient and Family ( Channing at bedside)
A 12 point ROS was completed and negative except as noted: Yes
Constitutional: Denies Fever, Fatigue or Chills
EENT: Denies Sore Throat or Runny Nose
Respiratory: Denies Cough or Trouble Breathing
Cardiac: Denies Chest Pain, Diaphoresis or Palpitations
Abdomen/GI: Denies Abdominal Pain, Nausea, Vomiting, Diarrhea, Constipated, Bloody Stools or Black Stools
: Denies Dysuria, Frequency, Flank Pain, Incontinence, Difficulty Voiding, Urgency or Bleeding
Musculoskeletal: Reports Joint Pain
Skin: Denies Itching or Rash
Neurological: Denies Dizzy, Headache or Weakness
Psych: Reports Other (Was tremulous prior to IV Ativan in ER)
Physical Exam
Vital Signs
Vital Signs
Temp Pulse Resp BP Pulse Ox
98.2 F 132 22 178/131 97
03/12/25 12:04 03/12/25 14:46 03/12/25 14:00 03/12/25 14:46 03/12/25 14:00
Physical Exam
General: Other (Drowsy post IV Ativan); No Pain or Fever
HEENT: NormoCephalic, Anicteric, [place] Conjunctivae, No Ptosis and Other (Dry oral mucosa)
Respiratory: Clear; No Wheezes or Rales
Cardiac: S1/S2 and Tachycardia (Sinus 125 bpm); No Murmur, Rub, Gallop or Peripheral Edema
Breast: Deferred by me
GI: Soft, Non Tender, Non Distended, Normal Bowel Sounds and No Hepatosplenomegaly
Rectal: Deferred by Provider
Genito-urinary: Deferred by me
Musculoskeletal: No Clubbing, No Cyanosis, No Edema and Other (Tenderness to right wrist, right leg)
Neuro: Cranial Nerves Intact, No Sensory Deficits, Sedated and Other (Drowsy due to IV Ativan but oriented x 3); No Slurred Speech, Facial Droop or Tremors
Psych: Calm
Laboratory Results
-
03/12/25 12:34
03/12/25 12:34
Laboratory Results
Total Bilirubin 1.3 mg/dl (0.2-1.3) 03/12/25 12:34
AST 70 U/L (14-36) H 03/12/25 12:34
ALT 24 U/L (0-35) 03/12/25 12:34
Alkaline Phosphatase 139 U/L (38-126) H 03/12/25 12:34
Impression/Plan
-
Impression/plan:
Admit to IMU
#Acute alcohol abuse concern for alcohol withdrawal
#History of alcohol withdrawal seizures
UDS negative
- IV Ativan 2 mg given in ER
- IV NSS 1 L given in ER
- IV banana bag given in ER
- Check magnesium level
-MSAS screen with protocol
- IV thiamine IV folate
- Check alcohol level
- Phenobarbital protocol
-B cares consult
#History alcohol withdrawal seizures
#History of multiple seizures last 25 August 2024
Cannot have Keppra /phenobarbital due to extreme agitation anger requiring restraints
-
#Acute on chronic depression
-No current suicidal ideation
Patient wants inpatient treatment for her depression
#Acute hyponatremia possibly secondary to beer [place]
NA 127
-Check urine NA, urine osmole, serum osmole, TSH with free T4 reflex
#Hypertensive urgency secondary to noncompliance
BP 225/114 > 170/134 status post labetalol 10 mg
IV labetalol 10 mg every 6 hours as needed SBP>165 pritchett >110
-Resume nifedipine ER 30 mg daily and Lopressor 25 mg twice daily
- Check EKG
#Acute hypokalemia
K3.3
Will give KCl 40 mEq follow BMP
# Sinus tachycardia likely secondary to withdrawal/volume depletion
HR 123 bpm
IV NSS 1 L given in ER
-Continue IV NSS 100 cc/h
#Right wrist, right ankle pain secondary to fall-pending x-rays
Fall was 1 week ago
hCG negative
Patient pending x-rays
Nicotine vape abuse
Prior half a pack a day cigarette smoker x 14 years
- Vapes multiple times a day for the last 7 years and total nicotine 24 years
- Cessation advised
DVT prophylaxis
Subcu Lovenox
Full code Jr can be called for any information [phone] or patient's sister Destinee [phone]
[2025-03-12] MEDS: MULTIVITAMIN 1011 MG IV (14:58)
[2025-03-12] MEDS: MULTIVITAMIN 1011 ML IV (14:58)
[2025-03-12] MEDS: KCL 40 MEQ PO (15:03)
--- NOTE | 2025-03-12 15:44 | W.PN.UPDATE ---
Update Note
Progress Note Update
This is an addendum to H&P written by Frida Morales on 03/12/2025.� Patient seen and examined independently with [facility].
34-year-old female past medical history of alcohol use disorder, alcohol withdrawal seizures, hypertension, presenting with heavy alcohol use, feeling anxious and tearful.� Not taken blood pressure medications for 5 months.� Fell down the steps a
week ago and has sore right wrist and ankle. She stopped taking Keppra due to Behavorial disturbances.�
Blood pressure up to 225/114.� Tachycardic.
Labs show sodium of 127, potassium of 3.3.� AST of 70. UDS negative.�
Presentation consistent with alcohol withdrawal as well as hypertensive urgency from medication noncompliance.� Hyponatremia secondary to beer [place] and hypokalemia.�
Also had recent fall with right ankle and wrist soreness.
IV fluids.� Thiamine and folate.� Phenobarbital protocol.� Alcohol withdrawal protocol. Crisis consulted.�
Replete potassium.� Check magnesium level.
As needed labetalol for hypertensive urgency.� Resume oral antihypertensive medications when can be obtained.�
Right ankle and wrist x-rays pending.
[2025-03-12 16:07] LABS: TSH Reflex To Free T4 1.58 uIU/ml (0.47-4.68)
[2025-03-12 16:11] LABS: Osmolality Serum 342 mOsm/kg (275-300)
[2025-03-12 16:11] LABS: Osmolality Urine 166 mOsm/kg (300-900)
[2025-03-12 16:30] LABS: Alcohol 258 mg/dl
[2025-03-12 16:38] LABS: Urine Sodium 14 mmol/L (30-90)
[2025-03-12] MEDS: NICODERM TRANSDERMAL 21 MG TRANSDERM (16:50)
--- NOTE | 2025-03-12 18:27 | PTCARENOTE ---
patient arrived to room 3342 via stretcher. She is alert and oreinted x 3. tremulous and flushed face. IVF infusing. HEart rate is 135 with minimal activity
[2025-03-12] MEDS: ATIVAN 1 MG PO (18:50)
[2025-03-12] MEDS: PHENOBARBITAL 104 MG IV (19:29)
[2025-03-12] MEDS: LOPRESSOR 25 MG PO (20:00)
[2025-03-12] MEDS: NSS (PRESERVATIVE FREE) 0.5 ML IV (20:00)
[2025-03-12] MEDS: PROCARDIA XL (EXTENDED RELEASE) 30 MG PO (20:00)
[2025-03-12] MEDS: THIAMINE INJECTION 200 MG IV ×2 (21:53→23:15)
[2025-03-12] MEDS: PHENOBARBITAL 97.5 MG IV (21:54)
[2025-03-12] MEDS: LOVENOX 40 MG SC (21:55)
[2025-03-13] VITALS (11 sets, daily range): BP systolic 125–178; BP diastolic 91–116; PULSE 95; BMI 19.9
--- NOTE | 2025-03-13 02:17 | PTCARENOTE ---
When getting OOB to use bathroom, pt dropped a 'vape' device, education provided on no smoking policy. Security confiscated device and educated pt on policy. Pt requests additional nicotine patch, education provided as one nicotine patch is already
in place on RUE. MSAS and assessment as documented. Bed alarm in place for pt safety. Call boswell within reach. IVF maintained.
[2025-03-13 04:18] LABS: % Basophils 0.7 % (0-2); % Eosinophils 1.7 % (0-6); % Immature Granulocytes 0.3 % (0-0.5); % Lymphocytes 11.1 % (20.5-51.1); % Monocytes 6.1 % (1.7-9.3); % Neutrophils 80.1 % (42.2-75.2); Absolute Basophils 0.1 10^3/uL (0-0.2); Absolute Eosinophils 0.1 10^3/uL (0-0.7); Absolute Lymphocytes 0.8 10^3/uL (1.2-3.4); Absolute Monocytes 0.4 10^3/uL (0.1-0.6); Absolute Neutrophils 5.6 10^3/uL (1.4-6.5); Hematocrit 31.5 % (37.0-47.0); Hemoglobin 11.2 g/dL (12.0-16.0); Mean Corp Hgb Conc. 35.6 g/dL (33.0-37.0); Mean Corpuscular Hgb 36.1 pg (27.0-31.0); Mean Corpuscular Volume 101.6 fL (81.0-99.0); Mean Platelet Volume 9.2 fL (7.4-10.4); Nucleated Red Blood Cells % 0 %; Platelet Count 193 10^3/uL (130-400); Red Cell Dist. Width 12.5 % (11.5-14.5); Urine Albumin Negative (Neg - Trace); Urine Bilirubin Negative (Negative); Urine Character Clear (Clear); Urine Color Yellow; Urine Glucose Negative (Negative); Urine Ketone Negative (Negative); Urine Leukocyte Negative (Negative); Urine Nitrite Negative (Negative); Urine Occult Blood Negative (Negative); Urine Specific Gravity 1.005 (<1.030); Urine Urobilinogen Negative (Neg - 1+)
[2025-03-13 04:28] LABS: PT 12.4 Sec (11.4-14.6)
[2025-03-13 04:29] LABS: APTT 28.3 Sec (23.4-35.0)
[2025-03-13 04:46] LABS: GGTP 70 U/L (12-43); Magnesium 1.6 mg/dl (1.6-2.3)
[2025-03-13 04:48] LABS: ALT (SGPT) 20 U/L (0-35); AST (SGOT) 47 U/L (14-36); Albumin 3.5 g/dl (3.5-5.0); Alkaline Phosphatase 97 U/L (38-126); Blood Urea Nitrogen 5 mg/dl (7-17); Calcium 8.9 mg/dl (8.4-10.2); Carbon Dioxide 30 mmol/L (22-30); Chloride 97 mmol/L (98-107); Estimated Creatinine Clearance 92 ml/min; Glucose 162 mg/dl (70-99); Potassium 3.3 mmol/L (3.5-5.1); Sodium 135 mmol/L (135-145); Total Bilirubin 1.3 mg/dl (0.2-1.3); Total Protein 5.8 g/dl (6.3-8.2); eGFR > 60.00
[2025-03-13 04:52] LABS: B-Hydroxybutyrate 0.09 mmol/L (0.02-0.27)
--- NOTE | 2025-03-13 06:31 | W.PN.HOSP.TC ---
Today's Communication/Plan
-
see a/p
Assessment / Plan
Assessment / Plan
Physical Exam
General: no acute distress, appears comfortable at this time
HEENT: NormoCephalic, Anicteric, [place] Conjunctivae, No Ptosis
Respiratory: Clear; No Wheezes or Rales
Cardiac: S1/S2 Sinus Tachy; No Murmur, Rub, Gallop or Peripheral Edema
GI: Soft, Non Tender, Non Distended, Normal Bowel Sounds and No Hepatosplenomegaly
Musculoskeletal: No Clubbing, No Cyanosis, No Edema, Tenderness to right wrist, right ankle
Neuro: AOx3 conversant coherent, fine tremor fingertips on outstretched hands
Psych: Calm
34F ETOH Nicotine dependence Depression here for ETOH withdrawal.
#Alcohol abuse/alcohol withdrawal
#History of alcohol withdrawal seizures
#Depression
UDS negative
-received IV Ativan 2 mg IV NSS 1 L IV banana in ER
-MSAS screen with protocol
- IV thiamine IV folate
- alcohol level 258
-Phenobarbital protocol
-B cares consult
-Psych eval appreciated Lexapro 5 mg daily started
Hypomagnesemia
Hypokalemia
-monitor and replete as necessary
#History alcohol withdrawal seizures
#History of multiple seizures last 25 August 2024
Per reports Cannot have Keppra /phenobarbital due to extreme agitation anger requiring restraints
However patient tolerating phenobarb taper as above without issues.
#Acute hyponatremia likely beer potomania
initial NA 127 since improved to 130s
monitor
#Hypertensive urgency secondary to noncompliance
# Sinus tachycardia likely secondary to withdrawal/volume depletion
IV labetalol 10 mg every 6 hours as needed SBP>165 pritchett >110
-cont nifedipine ER 30 mg daily and Lopressor 25 mg twice daily
-EKG appreciated sinus tachy no significant change from prior EKG Sep 2024
-TSH wnl
-tolerating diet, IVF completed
#Right wrist, right ankle pain secondary to fall a week ago prior to presentation
#Right wrist fracture
hCG negative
Ankle X-ray appreciated no acute fracture/dislocation
Right Wrist X-ray appreciated Fracture at the dorsal aspect of the distal radial metaphysis with minor displacement and impaction. No dislocation. Soft tissue swelling about the wrist.
Orthopedics eval appreciated conservative mgmt recommended, non weightbearing RUE in wrist brace, ice and elevation, outpt follow up in 2 wks recommended
Nicotine vape abuse
Prior half a pack a day cigarette smoker x 14 years
- Vapes multiple times a day for the last 7 years and total nicotine 24 years
- Cessation advised
-nicotine patch and prn nicorette lozenges ordered
DVT prophylaxis
Subcu Lovenox
Full code Jr can be called for any information [phone] or patient's sister Destinee [phone]
Discussed with patient
I spent a total of 50 minutes with the patient or on the floor. More than 50% of this time involved counseling and coordination of care.
Anticipated Discharge: 24 - 48 hours
Subjective/Interval History
-
Date of Service: March 13, 2025
No acute distress, resting comfortably in bed, calm cooperative.
Objective Data
-
Labs:
Laboratory Results
03/13/25 03/13/25
03:45 03:46
WBC 7.0
Hgb 11.2 L
Hct 31.5 L
Plt Count 193
PT 12.4
INR 0.90
APTT 28.3
Sodium 135 D
Potassium 3.3 L
Chloride 97 L
Carbon Dioxide 30
BUN 5 L
Creatinine 0.7
Glucose 162 H
Calcium 8.9
Total Bilirubin 1.3
AST 47 H
ALT 20
Alkaline Phosphatase 97
Vital Signs:
Vital Signs
Temp Pulse Resp BP Pulse Ox
98.2 F 115 15 138/99 97
03/13/25 03:31 03/13/25 06:00 03/13/25 06:00 03/13/25 06:00 03/13/25 04:02
I&O
03/11/25 03/12/25 03/13/25
06:59 06:59 06:59
Output Total 1050 / 1050
Balance -1050 / -1050
[2025-03-13] MEDS: PHENOBARBITAL 97.5 MG IV ×3 (07:45→21:53)
[2025-03-13] MEDS: NSS 1000 IV ×2 (07:45→19:20)
[2025-03-13] MEDS: NICODERM TRANSDERMAL 21 MG TRANSDERM (07:47)
[2025-03-13] MEDS: LOPRESSOR 25 MG PO ×2 (07:50→19:14)
[2025-03-13] MEDS: FOLVITE 1 MG PO (07:50)
[2025-03-13] MEDS: PROCARDIA XL (EXTENDED RELEASE) 30 MG PO (07:50)
[2025-03-13] MEDS: THIAMINE INJECTION 200 MG IV ×3 (07:51→21:53)
--- NOTE | 2025-03-13 09:14 | CM ---
Addendum entered by Edda Persaud 03/13/25 09:21:
Call placed to pt's and VM left regarding CM involvement to assist with coordination of dual dx treatment services once Allisha is medically cleared. Pt's provided with IMU nursing phone contact, as he was not able to be at the
hospital to obtain medical updates. He is home with their children, so feels unsure about the medical plan.
CM will continue to follow; will work with [facility] team for coordination of services when medically stable.
Original Note:
CM consult received for dual dx treatment on an inpatient basis. Pt seen by Gaye Lu yesterday due to SI and ETOH withdrawal.
Admitted to IMU for medical care due to tremors and elevated BP.
CM called [facility] and left a voicemail requesting follow up with this patient for inpatient dual diagnosis placement.
Plan: CM to follow for coordination with [facility] for transfer to IP treatment when medically stable.
[2025-03-13] MEDS: KCL 40 MEQ PO (09:34)
--- NOTE | 2025-03-13 11:04 | CS.PSYCHR ---
Consult Summary - Psychiatry
-
Pt is 34 yo female with history of alcohol abuse who presented to ED c/o feeling anxious, stating she wants to detox. Pt noted drinking daily for the past 16 years, recently her has also noticed she has been buying multiple bottles of
Listerine on [facility] and drinking them. Pt reportedly willing to have alcohol use treatment; also asking for help with depression. On interview, pt resting in bed in no distress, reports she has had passing SI a couple times over the past few weeks.
Pt reports hx of alcohol withdrawal seizures. BAL 258 on 03/12 (admission).
PMH: reported W/D seizures, noted with increased agitation on Keppra with Phenobarb Rx by PCP
FHx: mother- prior alcohol use, father from heroin OD, sister recovered alcoholic, brother with addiction
SH: noted arranged a trial separation, rented another place for pt to live, hired a nanny for the children
Psych Hx: pt reports she has tried about 5 different antidepressants, none helpful. Outpatient after brief inpatient treatment Aug 2024, resumed alcohol use
MSE: alert, calm, cooperative, appropriate eye contact. Affect constricted, c/o feeling depressed. Denies active SI/plan/intent. No signs of psychosis or agitation. Insight appears limited to fair
Imp: Alcohol Use d/o severe, with hx of withdrawal seizures
Unspecified depressive d/o
Rec: pt requesting trial of antidepressant; will start trial of Lexapro starting at 5 mg daily- pt informed of potential risks/side effects
Will follow
--- NOTE | 2025-03-13 14:30 | CON.ORTHO ---
Consultation
-
Date/Time Consultation Requested: 03/13/2025 @ 11:17 AM
Date/Time Consultation Performed: 03/13/2025 @ 2:15 PM
Requesting Provider: Dr. Rodriguez
Performing Provider: Checo Brown PA-C for Dr. Harry Kingsley MD
Reason for Consultation: Right Wrist Fracture
Consultation - Orthopedics
History
Orthopedic Surgery Note
CC: Right Wrist Pain s/p Fall x 2 weeks ago
HPI: The patient is a 34-year-old [id number] female with a past medical history significant for Alcohol abuse and HTN who presented to [facility] Emergency Department yesterday evening for evaluation for detox from alcohol. She
reports sustaining a mechanical fall down a flight of steps approximately 2 weeks ago, and at that time experienced acute onset of right wrist pain. She reports gradual improvements in pain since her date of injury, however due to complaints
underwent x-rays which revealed an acute fracture at the dorsal aspect of the distal radial metaphysis with minor displacement and impaction. She endorses increased pain with attempted range of motion. She denies any numbness or tingling.
Orthopedic surgery has been consulted for treatment recommendations.
PMH/PSH: Alcohol abuse and HTN. section x 1, Breast augmentation, Tonsillectomy.
Medications: Reviewed.
Family History: Family history was reviewed. Noncontributory.
Social history:
Tobacco: Vaping (nicotine cigarette abuse 7 years ago half pack a day current vape nicotine abuse)
Alcohol: Daily (4 beers perpetual troegs 7.5% plus drinking bottles of Listerine according to Channing)
Drug: None
Personal:
Living: With Family
Employment: Not Employed
Exam
General appearance: Pleasant. No acute distress.
Head: Normocephalic/atraumatic
Nose: No lesions or discharge.
Skin: No obvious rashes or open wounds
Lungs: No audible wheezing, no cough or sputum production
Musculoskeletal:
RUE:
Physical examination of the right upper extremity, with attention to the right wrist, reveals wrist brace intact. This was taken down for further evaluation. No obvious deformity, erythema, warmth, or ecchymosis. (+) Tenderness to palpation over
the distal radius. No tenderness to palpation over the distal ulna, ulnar styloid, or TFCC. No tenderness to palpation over the anatomic snuffbox. Wrist ROM deferred secondary to known fracture. EPL intact. She is able to wiggle all fingers.
Elbow range of motion intact without pain. Fingers are pink and warm. Capillary refill is less than 2 seconds. Sensation intact to light touch. NVI distally.
Imaging:
CR Wrist - RIGHT Min 3 Views was obtained at [facility] on 03/13/2025 and was made available for my review today. Findings/impression: Fracture at the dorsal aspect of the distal radial metaphysis with minor displacement and impaction.
No dislocation. Soft tissue swelling about the wrist.
Assessment: 34-year-old [id number] female with an acute fracture at the dorsal aspect of the distal radial metaphysis with minor displacement and impaction.
Plan:
- This fracture is amenable to nonoperative treatment.
- Recommend nonweightbearing to right upper extremity in wrist brace.
- Ice therapy and elevation for edema control. Pain control per primary team.
- Recommend repeat x-rays and clinical examination as an outpatient in approximately 2 weeks. D/C information updated.
- Orthopedic surgery will sign off at this time. Please reengage with any further questions or concerns.
Allergies / Home Medications
Allergy/AdvReac Type Severity Reaction Status Date / Time
levetiracetam [From Keppra] Allergy See Verified 03/12/25 18:40
comments:
phenobarbital Allergy See Verified 03/12/25 18:40
comments:
�Medication �Instructions �Recorded
atomoxetine 40 mg capsule 40 mg PO DAILY 03/12/25
norethindrone 1.5 mg-ethinyl 1 tab PO DAILY 03/12/25
estradiol 30 mcg(21)/iron 75 mg(7)
tablet (Sera Fe 1.5/30 (28))
Vital Signs / Lab Results
Temp Pulse Resp BP Pulse Ox
98.3 F 106 16 125/99 97
03/13/25 11:00 03/13/25 10:00 03/13/25 10:00 03/13/25 10:00 03/13/25 08:00
03/13/25 03:46
03/13/25 03:45
[2025-03-13] MEDS: LEXAPRO 5 MG PO (14:35)
[2025-03-13] MEDS: NICORETTE 4 MG PO ×3 (15:04→23:06)
[2025-03-13] MEDS: LOVENOX 40 MG SC (16:56)
[2025-03-13] MEDS: TRANDATE 10 MG IV ×2 (16:57→23:04)
[2025-03-13] MEDS: ATIVAN 1 MG PO (19:20)
--- NOTE | 2025-03-13 20:00 | PTCARENOTE ---
Received pt. at 1900. Pt. currently in bed. Awake, alert, and oriented. Denies pain/discomfort. Afebrile. Heart rhythm sinus. Blood pressure normotensive. Currently on room air. Lungs sound clear. PO diet, good appetite. Voiding without issue. Skin
as documented. Discussed plan of care. Vital signs stable at this time.
[2025-03-13] MEDS: ATIVAN 1 MG IV (21:54)
[2025-03-14] VITALS (11 sets, daily range): BP systolic 129–185; BP diastolic 100–123; BMI 20.6
[2025-03-14] MEDS: ATIVAN 1 MG PO ×4 (00:55→23:47)
[2025-03-14] MEDS: ATIVAN 1 MG IV (02:58)
[2025-03-14 03:14] LABS: % Basophils 0.9 % (0-2); % Eosinophils 3.6 % (0-6); % Immature Granulocytes 0.5 % (0-0.5); % Lymphocytes 18.1 % (20.5-51.1); % Monocytes 7.5 % (1.7-9.3); % Neutrophils 69.4 % (42.2-75.2); Absolute Eosinophils 0.2 10^3/uL (0-0.7); Absolute Lymphocytes 0.8 10^3/uL (1.2-3.4); Absolute Monocytes 0.3 10^3/uL (0.1-0.6); Absolute Neutrophils 3.1 10^3/uL (1.4-6.5); Hematocrit 26.1 % (37.0-47.0); Hemoglobin 9.4 g/dL (12.0-16.0); Mean Corpuscular Hgb 36.6 pg (27.0-31.0); Mean Corpuscular Volume 101.6 fL (81.0-99.0); Mean Platelet Volume 9.3 fL (7.4-10.4); Nucleated Red Blood Cells % 0.5 %; Platelet Count 140 10^3/uL (130-400); Red Blood Cell Count 2.57 10^6/uL (4.20-5.40); Red Cell Dist. Width 12.2 % (11.5-14.5); White Blood Cell Count 4.4 10^3/uL (4.8-10.8)
[2025-03-14 03:20] LABS: ALT (SGPT) 15 U/L (0-35); AST (SGOT) 34 U/L (14-36); Albumin 2.9 g/dl (3.5-5.0); Alkaline Phosphatase 78 U/L (38-126); Blood Urea Nitrogen 3 mg/dl (7-17); Calcium 8.9 mg/dl (8.4-10.2); Carbon Dioxide 28 mmol/L (22-30); Chloride 100 mmol/L (98-107); Estimated Creatinine Clearance 111 ml/min; Glucose 97 mg/dl (70-99); Magnesium 1.4 mg/dl (1.6-2.3); Phosphorus 2.8 mg/dl (2.5-4.5); Potassium 3.3 mmol/L (3.5-5.1); Sodium 132 mmol/L (135-145); Total Bilirubin 0.7 mg/dl (0.2-1.3); eGFR > 60.00
[2025-03-14] MEDS: KCL 40 MEQ PO (05:25)
[2025-03-14] MEDS: MAGNESIUM SULFATE 100 IV (05:25)
--- NOTE | 2025-03-14 07:53 | W.PN.HOSP.TC ---
Today's Communication/Plan
-
Medically stable for downgrade to Tele
cont phenobarb taper
MSAS protocol
Replete Mg K
Discharge planning Inpt ETOH rehab
Assessment / Plan
Assessment / Plan
Physical Exam
General: no acute distress, appears comfortable at this time
HEENT: NormoCephalic, Anicteric, [place] Conjunctivae, No Ptosis
Respiratory: Clear; No Wheezes or Rales
Cardiac: S1/S2 Sinus Tachy; No Murmur, Rub, Gallop or Peripheral Edema
GI: Soft, Non Tender, Non Distended, Normal Bowel Sounds and No Hepatosplenomegaly
Musculoskeletal: No Clubbing, No Cyanosis, No Edema, Tenderness to right wrist, right ankle
Neuro: AOx3 conversant coherent
Psych: Calm
34F ETOH Nicotine dependence Depression here for ETOH withdrawal.
#Alcohol abuse/alcohol withdrawal
#History of alcohol withdrawal seizures
#Depression
UDS negative
-received IV Ativan 2 mg IV NSS 1 L IV banana in ER
-MSAS screen with protocol
- Thiamine Folate Supplementation
- alcohol level 258
-Phenobarbital protocol
-B cares consult, patient interested in inpatient ETOH rehab
-Psych eval appreciated Lexapro 5 mg daily started
Hypomagnesemia
Hypokalemia
-monitor and replete as necessary
#History alcohol withdrawal seizures
#History of multiple seizures last 25 August 2024
Per reports Cannot have Keppra /phenobarbital due to extreme agitation anger requiring restraints
However patient tolerating phenobarb taper as above without issues.
#Acute hyponatremia likely beer potomania
initial NA 127 since improved to 130s
monitor
#Hypertensive urgency secondary to noncompliance/withdrawal
# Sinus tachycardia likely secondary to withdrawal/volume depletion
IV labetalol 10 mg every 6 hours as needed SBP>165 pritchett >110
-cont nifedipine ER 30 mg daily and Lopressor 25 mg twice daily
-EKG appreciated sinus tachy no significant change from prior EKG Sep 2024
-TSH wnl
-tolerating diet, IVF completed
-monitor and titrate/adjust antihypertensive regimen as necessary
#Right wrist, right ankle pain secondary to fall a week ago prior to presentation
#Right wrist fracture
hCG negative
Ankle X-ray appreciated no acute fracture/dislocation
Right Wrist X-ray appreciated Fracture at the dorsal aspect of the distal radial metaphysis with minor displacement and impaction. No dislocation. Soft tissue swelling about the wrist.
Orthopedics eval appreciated conservative mgmt recommended, non weightbearing RUE in wrist brace, ice and elevation, outpt follow up in 2 wks recommended
Nicotine vape abuse
Prior half a pack a day cigarette smoker x 14 years
- Vapes multiple times a day for the last 7 years and total nicotine 24 years
- Cessation advised
-nicotine patch and prn nicorette lozenges ordered
PT/OT eval appreciated Outpt Therapy vs No needs
DVT prophylaxis
Subcu Lovenox
Full code Jr can be called for any information [phone] or patient's sister Destinee [phone]
Medically stable for downgrade to Tele
Discussed with patient
I spent a total of 50 minutes with the patient or on the floor. More than 50% of this time involved counseling and coordination of care.
Anticipated Discharge: 24 - 48 hours
Subjective/Interval History
-
Date of Service: March 14, 2025
No acute distress. Sleeping but arousable, oriented x3, conversant coherent. Overall reports feeling well. Denies new acute issues at this time.
Objective Data
-
Labs:
Laboratory Results
03/14/25
02:52
WBC 4.4 L
Hgb 9.4 L
Hct 26.1 L
Plt Count 140 D
Sodium 132 L
Potassium 3.3 L
Chloride 100
Carbon Dioxide 28
BUN 3 L
Creatinine 0.6
Glucose 97
Calcium 8.9
Total Bilirubin 0.7
AST 34
ALT 15
Alkaline Phosphatase 78
Vital Signs:
Vital Signs
Temp Pulse Resp BP Pulse Ox
98.3 F 108 20 151/116 99
03/14/25 03:00 03/14/25 06:00 03/14/25 06:00 03/14/25 06:00 03/13/25 20:00
I&O
03/13/25 03/14/25 03/15/25
06:59 06:59 06:59
Intake Total 1450 / 1450
Output Total 1750 / 1750
Balance -1750 / -1750 1450 / 1450
[2025-03-14] MEDS: FOLVITE 1 MG PO (08:19)
[2025-03-14] MEDS: LEXAPRO 5 MG PO (08:20)
[2025-03-14] MEDS: THIAMINE INJECTION 200 MG IV ×3 (08:20→23:12)
[2025-03-14] MEDS: LOPRESSOR 25 MG PO ×2 (08:20→19:17)
[2025-03-14] MEDS: PROCARDIA XL (EXTENDED RELEASE) 30 MG PO (08:20)
[2025-03-14] MEDS: PHENOBARBITAL 97.5 MG IV ×2 (08:21→16:18)
[2025-03-14] MEDS: NICODERM TRANSDERMAL 21 MG TRANSDERM (08:22)
[2025-03-14] MEDS: NSS 1000 IV (12:04)
[2025-03-14] MEDS: PROTONIX 40 MG PO (12:06)
[2025-03-14] MEDS: NICORETTE 4 MG PO ×2 (12:11→20:09)
[2025-03-14 12:18] LABS: Hematocrit 29.7 % (37.0-47.0); Hemoglobin 10.8 g/dL (12.0-16.0)
--- NOTE | 2025-03-14 15:00 | CM ---
Reviewed the chart notes and spoke with the patient and her significant other at the bedside. Patient and significant other are interested in inpatient treatment. Permission received to reach out to [facility]. AMANDA spoke with Destinee with [facility]. Patient' information provided to Destinee. Per [facility] Felipe charter representative will reach out for in person interview. Patient and significant other informed.
[2025-03-14] MEDS: TRANDATE 10 MG IV ×2 (17:00→23:12)
[2025-03-14] MEDS: LUMINAL 64.8 MG PO (21:04)
--- NOTE | 2025-03-14 21:06 | PTCARENOTE ---
Received pt at change of shift. Pt extremely anxious during rounds. 1x PO Ativan ordered and administered (see MAR). Pt states an hr later that it was helping. Pt tearful at times. Slightly tremulous; no SI/hallucinations. ST on monitor. BP
elevated - meds administered per order(see MAR). MSAS Q2H; last assessment MSAS 3. Pt laying in bed with call boswell in reach.
[2025-03-15] VITALS (7 sets, daily range): BP systolic 140–170; BP diastolic 102–118
[2025-03-15 06:14] LABS: % Eosinophils 3.2 % (0-6); % Immature Granulocytes 0.3 % (0-0.5); % Lymphocytes 15.3 % (20.5-51.1); % Monocytes 7.2 % (1.7-9.3); Absolute Basophils 0.1 10^3/uL (0-0.2); Absolute Eosinophils 0.2 10^3/uL (0-0.7); Absolute Lymphocytes 0.9 10^3/uL (1.2-3.4); Absolute Monocytes 0.4 10^3/uL (0.1-0.6); Absolute Neutrophils 4.3 10^3/uL (1.4-6.5); Hemoglobin 10.1 g/dL (12.0-16.0); Mean Corp Hgb Conc. 36.1 g/dL (33.0-37.0); Mean Corpuscular Hgb 36.5 pg (27.0-31.0); Mean Corpuscular Volume 101.1 fL (81.0-99.0); Mean Platelet Volume 9.5 fL (7.4-10.4); Nucleated Red Blood Cells % 0 %; Platelet Count 149 10^3/uL (130-400); Red Blood Cell Count 2.77 10^6/uL (4.20-5.40); Red Cell Dist. Width 11.8 % (11.5-14.5)
[2025-03-15] MEDS: NICORETTE 4 MG PO (06:14)
[2025-03-15] MEDS: ATIVAN 1 MG PO ×5 (06:15→21:35)
[2025-03-15 06:46] LABS: ALT (SGPT) 14 U/L (0-35); AST (SGOT) 24 U/L (14-36); Albumin 3.4 g/dl (3.5-5.0); Alkaline Phosphatase 90 U/L (38-126); Blood Urea Nitrogen < 2 mg/dl (7-17); Calcium 8.8 mg/dl (8.4-10.2); Carbon Dioxide 26 mmol/L (22-30); Chloride 100 mmol/L (98-107); Estimated Creatinine Clearance 111 ml/min; Glucose 99 mg/dl (70-99); Magnesium 1.4 mg/dl (1.6-2.3); Phosphorus 2.8 mg/dl (2.5-4.5); Potassium 3.5 mmol/L (3.5-5.1); Sodium 133 mmol/L (135-145); Total Bilirubin 0.5 mg/dl (0.2-1.3); Total Protein 5.6 g/dl (6.3-8.2); eGFR > 60.00
--- NOTE | 2025-03-15 08:00 | PTCARENOTE ---
Assumed care of patient at 0645. Assessment completed and documented in shift assessment.
Patient is AAOx3, flat/withdrawn but appropriate with conversation. MSAS protocol 4-5.OOB without assist to bathroom. RA, CTA. SR to ST on Monitor. L AC and L Wrist IV patent. BP elevated, gave morning medications. Will recheck BP. Poor appetite
however dislikes food here, partner bringing in meal from outside of hospital.
[2025-03-15] MEDS: LUMINAL 64.8 MG PO ×3 (08:56→21:35)
[2025-03-15] MEDS: FOLVITE 1 MG PO (08:56)
[2025-03-15] MEDS: LOPRESSOR 25 MG PO ×2 (08:56→19:30)
[2025-03-15] MEDS: LEXAPRO 5 MG PO (08:56)
[2025-03-15] MEDS: PROTONIX 40 MG PO (08:56)
[2025-03-15] MEDS: PROCARDIA XL (EXTENDED RELEASE) 30 MG PO (08:56)
[2025-03-15] MEDS: NICODERM TRANSDERMAL 21 MG TRANSDERM (08:57)
[2025-03-15] MEDS: THIAMINE INJECTION 200 MG IV (09:00)
--- NOTE | 2025-03-15 15:25 | W.PN.HOSP.TC ---
Today's Communication/Plan
-
phenobarb taper
Assessment / Plan
Assessment / Plan
Physical Exam
General: no acute distress, appears comfortable at this time
HEENT: NormoCephalic, Anicteric, [place] Conjunctivae, No Ptosis
Respiratory: Clear; No Wheezes or Rales
Cardiac: S1/S2 Sinus Tachy; No Murmur, Rub, Gallop or Peripheral Edema
GI: Soft, Non Tender, Non Distended, Normal Bowel Sounds and No Hepatosplenomegaly
Musculoskeletal: No Clubbing, No Cyanosis, No Edema, Tenderness to right wrist, right ankle
Neuro: AOx3 conversant coherent
Psych: Calm
34F ETOH Nicotine dependence Depression here for ETOH withdrawal.
#Alcohol abuse/alcohol withdrawal
#History of alcohol withdrawal seizures
#Depression
UDS negative
-received IV Ativan 2 mg IV NSS 1 L IV banana in ER
-MSAS screen with protocol
- Thiamine Folate Supplementation
- alcohol level 258
-Phenobarbital protocol
-B cares consult, patient interested in inpatient ETOH rehab�cleared to be discharged if can continue phenobarbital protocol there
-Psych eval appreciated Lexapro 5 mg daily started
Hypomagnesemia
Hypokalemia
-monitor and replete as necessary
#History alcohol withdrawal seizures
#History of multiple seizures last 25 August 2024
Per reports Cannot have Keppra /phenobarbital due to extreme agitation anger requiring restraints
However patient tolerating phenobarb taper as above without issues.
#Acute hyponatremia likely beer potomania
initial NA 127 since improved to 130s
monitor
#Hypertensive urgency secondary to noncompliance/withdrawal
# Sinus tachycardia likely secondary to withdrawal/volume depletion
IV labetalol 10 mg every 6 hours as needed SBP>165 pritchett >110
-cont nifedipine ER 30 mg daily and Lopressor 25 mg twice daily
-EKG appreciated sinus tachy no significant change from prior EKG Sep 2024
-TSH wnl
-tolerating diet, IVF completed
-monitor and titrate/adjust antihypertensive regimen as necessary
#Right wrist, right ankle pain secondary to fall a week ago prior to presentation
#Right wrist fracture
hCG negative
Ankle X-ray appreciated no acute fracture/dislocation
Right Wrist X-ray appreciated Fracture at the dorsal aspect of the distal radial metaphysis with minor displacement and impaction. No dislocation. Soft tissue swelling about the wrist.
Orthopedics eval appreciated conservative mgmt recommended, non weightbearing RUE in wrist brace, ice and elevation, outpt follow up in 2 wks recommended
Nicotine vape abuse
Prior half a pack a day cigarette smoker x 14 years
- Vapes multiple times a day for the last 7 years and total nicotine 24 years
- Cessation advised
-nicotine patch and prn nicorette lozenges ordered
PT/OT eval appreciated Outpt Therapy vs No needs
DVT prophylaxis
Subcu Lovenox
Full code Jr can be called for any information [phone] or patient's sister Destinee [phone]
Anticipated Discharge: Within 24 hours
Subjective/Interval History
-
Date of Service: March 15, 2025
No acute events overnight
Objective Data
-
Labs:
Laboratory Results
03/15/25
05:58
WBC 6.0
Hgb 10.1 L
Hct 28.0 L
Plt Count 149
Sodium 133 L
Potassium 3.5
Chloride 100
Carbon Dioxide 26
BUN < 2 L
Creatinine 0.6
Glucose 99
Calcium 8.8
Total Bilirubin 0.5
AST 24
ALT 14
Alkaline Phosphatase 90
Vital Signs:
Vital Signs
Temp Pulse Resp BP Pulse Ox
97.6 F 98 21 140/102 100
03/15/25 11:05 03/15/25 14:00 03/15/25 14:00 03/15/25 13:18 03/15/25 11:07
I&O
03/14/25 03/15/25 03/16/25
06:59 06:59 06:59
Intake Total 1450 / 1450 2160 / 2160
Output Total 700 / 700
Balance 1450 / 1450 1460 / 1460
Review of Systems
-
Respiratory: Reports No Symptoms
Cardiac: Reports No Symptoms
Abdomen/GI: Reports No Symptoms
Physical Exam
-
General: No Apparent Distress and Comfortable
HEENT: Normocephalic and Atraumatic; Negative Oxygen
Respiratory: Clear to Auscultation
Cardiac: Tachycardic
GI: Soft, Nontender and Nondistended
Musculoskeletal: No Clubbing
Neuro: Awake, Alert, Oriented, No Motor Deficits and Nonfocal/Grossly Intact
Psych: Confused
Data Reviewed
-
Diagnostic Radiology: Report Reviewed by me
[2025-03-15] MEDS: MAGNESIUM SULFATE 100 IV (16:33)
[2025-03-15] MEDS: LOVENOX 40 MG SC (18:12)
[2025-03-15] MEDS: VITAMIN B1 100 MG PO (19:30)
--- NOTE | 2025-03-15 22:49 | PTCARENOTE ---
assumed care of patient. pt is AAOx3, able to make needs known. tearful about situation but ready to get better for her kids. anxious at times. ST on the monitor. 100% RA. able to go into bathroom by self without issues. pt using right wrist splint
on and off. takes off when sweaty and then puts it back on. MSAS documented on worklist. PO ativan given x1 so far. care ongoing.
[2025-03-16] VITALS (8 sets, daily range): BP systolic 130–184; BP diastolic 101–127
[2025-03-16 04:11] LABS: % Basophils 0.9 % (0-2); % Eosinophils 3.3 % (0-6); % Immature Granulocytes 0.4 % (0-0.5); % Lymphocytes 18.1 % (20.5-51.1); % Monocytes 8.7 % (1.7-9.3); % Neutrophils 68.6 % (42.2-75.2); ALT (SGPT) 14 U/L (0-35); AST (SGOT) 22 U/L (14-36); Absolute Basophils 0.1 10^3/uL (0-0.2); Absolute Eosinophils 0.2 10^3/uL (0-0.7); Absolute Monocytes 0.5 10^3/uL (0.1-0.6); Absolute Neutrophils 3.8 10^3/uL (1.4-6.5); Albumin 3.4 g/dl (3.5-5.0); Alkaline Phosphatase 89 U/L (38-126); Blood Urea Nitrogen 5 mg/dl (7-17); Calcium 9.2 mg/dl (8.4-10.2); Carbon Dioxide 28 mmol/L (22-30); Chloride 97 mmol/L (98-107); Estimated Creatinine Clearance 111 ml/min; Glucose 114 mg/dl (70-99); Hematocrit 29.9 % (37.0-47.0); Hemoglobin 11.1 g/dL (12.0-16.0); Magnesium 2.1 mg/dl (1.6-2.3); Mean Corp Hgb Conc. 37.1 g/dL (33.0-37.0); Mean Corpuscular Hgb 37.1 pg (27.0-31.0); Mean Platelet Volume 9.8 fL (7.4-10.4); Nucleated Red Blood Cells % 0 %; Phosphorus 3.3 mg/dl (2.5-4.5); Platelet Count 175 10^3/uL (130-400); Potassium 3.6 mmol/L (3.5-5.1); Red Blood Cell Count 2.99 10^6/uL (4.20-5.40); Red Cell Dist. Width 11.9 % (11.5-14.5); Sodium 132 mmol/L (135-145); Total Bilirubin 0.5 mg/dl (0.2-1.3); Total Protein 5.8 g/dl (6.3-8.2); White Blood Cell Count 5.5 10^3/uL (4.8-10.8); eGFR > 60.00
[2025-03-16] MEDS: LOPRESSOR 25 MG PO ×2 (07:59→20:14)
[2025-03-16] MEDS: PROCARDIA XL (EXTENDED RELEASE) 30 MG PO (07:59)
[2025-03-16] MEDS: VITAMIN B1 100 MG PO ×2 (07:59→20:13)
[2025-03-16] MEDS: FOLVITE 1 MG PO (07:59)
[2025-03-16] MEDS: NICODERM TRANSDERMAL 21 MG TRANSDERM (07:59)
[2025-03-16] MEDS: LUMINAL 64.8 MG PO ×2 (08:00→16:30)
[2025-03-16] MEDS: PROTONIX 40 MG PO (08:00)
[2025-03-16] MEDS: LEXAPRO 5 MG PO (08:00)
--- NOTE | 2025-03-16 11:00 | CM ---
Addendum entered by Cyndee Strickland RN 03/16/25 16:38:
Met with TRICIA Alba; the patient has chosen [facility] or [facility]. She will have a substantial out of pocket cost however the programs will likely offer her the ability to pay in installments or payment plan. Clinical information
provided to Parth - he will fax to the 2 rehab facilities. He is aware patient likely ready for d/c 03/18 once Phenobarb taper is complete.
Plan Inpatient Substance Abuse Rehab 03/18 once setup by TRICIA.
Original Note:
Patient with Hx alcohol withdrawal seizures with Dx Alcohol abuse/alcohol withdrawal, Hypertensive urgency, Right wrist & right ankle pain secondary to fall with Right wrist fracture. Room air. PO Phenobarb taper. PT/OT Evals; no d/c needs. Non
weightbearing RUE in wrist brace. MSAS 1 @ 8:00 per nursing.
Message from Dr Blancas yesterday; Phenobarb taper will be complete by 03/18.
Spoke with TRICIA Lizama; she already had patient sign releases yesterday so requests can be submitted to 2 inpatient substance abuse programs. She is aware that patient has a splint on her wrist and she thinks that will not be a barrier to getting
her accepted. Going forward, Parth will be working on getting her placed. If clinical info is needed via fax, he will contact .
Plan Inpatient Substance Abuse Rehab 03/18 once setup by TRICIA.
--- NOTE | 2025-03-16 12:12 | PTCARENOTE ---
Rec'd pt this AM. AAOx3, OOB at [facility], no difficulty. BP remains elevated. appears comfortable.
--- NOTE | 2025-03-16 14:35 | W.PN.HOSP.TC ---
Today's Communication/Plan
-
Phenobarbital taper
Anxiolytics as per psychiatry
Assessment / Plan
Assessment / Plan
Physical Exam
General: no acute distress, appears comfortable at this time
HEENT: NormoCephalic, Anicteric, [place] Conjunctivae, No Ptosis
Respiratory: Clear; No Wheezes or Rales
Cardiac: S1/S2 Sinus Tachy; No Murmur, Rub, Gallop or Peripheral Edema
GI: Soft, Non Tender, Non Distended, Normal Bowel Sounds and No Hepatosplenomegaly
Musculoskeletal: No Clubbing, No Cyanosis, No Edema, Tenderness to right wrist, right ankle
Neuro: AOx3 conversant coherent
Psych: Calm
34F ETOH Nicotine dependence Depression here for ETOH withdrawal.
#Alcohol abuse/alcohol withdrawal
#History of alcohol withdrawal seizures
#Depression
UDS negative
-received IV Ativan 2 mg IV NSS 1 L IV banana in ER
-MSAS screen with protocol
- Thiamine Folate Supplementation
- alcohol level 258
-Phenobarbital protocol
-B cares consult, patient interested in inpatient ETOH rehab�needs to complete phenobarbital taper prior to discharge
-Psych eval appreciated Lexapro 5 mg daily started
Hypomagnesemia
Hypokalemia
-monitor and replete as necessary
#History alcohol withdrawal seizures
#History of multiple seizures last 25 August 2024
Per reports Cannot have Keppra /phenobarbital due to extreme agitation anger requiring restraints
However patient tolerating phenobarb taper as above without issues.
#Acute hyponatremia likely beer potomania
initial NA 127 since improved to 130s
monitor
#Hypertensive urgency secondary to noncompliance/withdrawal
# Sinus tachycardia likely secondary to withdrawal/volume depletion
IV labetalol 10 mg every 6 hours as needed SBP>165 pritchett >110
-cont nifedipine ER 30 mg daily and Lopressor 25 mg twice daily
-EKG appreciated sinus tachy no significant change from prior EKG Sep 2024
-TSH wnl
-tolerating diet, IVF completed
-monitor and titrate/adjust antihypertensive regimen as necessary
#Right wrist, right ankle pain secondary to fall a week ago prior to presentation
#Right wrist fracture
hCG negative
Ankle X-ray appreciated no acute fracture/dislocation
Right Wrist X-ray appreciated Fracture at the dorsal aspect of the distal radial metaphysis with minor displacement and impaction. No dislocation. Soft tissue swelling about the wrist.
Orthopedics eval appreciated conservative mgmt recommended, non weightbearing RUE in wrist brace, ice and elevation, outpt follow up in 2 wks recommended
Nicotine vape abuse
Prior half a pack a day cigarette smoker x 14 years
- Vapes multiple times a day for the last 7 years and total nicotine 24 years
- Cessation advised
-nicotine patch and prn nicorette lozenges ordered
PT/OT eval appreciated Outpt Therapy vs No needs
DVT prophylaxis
Subcu Lovenox
Full code Jr can be called for any information [phone] or patient's sister Destinee [phone]
Anticipated Discharge: 24 - 48 hours
Subjective/Interval History
-
Date of Service: March 16, 2025
Anxious otherwise no acute events overnight
Objective Data
-
Labs:
Laboratory Results
03/16/25
03:08
WBC 5.5
Hgb 11.1 L
Hct 29.9 L
Plt Count 175
Sodium 132 L
Potassium 3.6
Chloride 97 L
Carbon Dioxide 28
BUN 5 L
Creatinine 0.6
Glucose 114 H
Calcium 9.2
Total Bilirubin 0.5
AST 22
ALT 14
Alkaline Phosphatase 89
Vital Signs:
Vital Signs
Temp Pulse Resp BP Pulse Ox
97.5 F 93 17 130/101 100
03/16/25 07:05 03/16/25 14:20 03/16/25 12:01 03/16/25 12:01 03/15/25 19:40
I&O
03/15/25 03/16/25 03/17/25
06:59 06:59 06:59
Intake Total 2160 / 2160
Output Total 700 / 700
Balance 1460 / 1460
Review of Systems
-
History Source: Patient
All other systems: Not reviewed unless documented
Physical Exam
-
General: No Apparent Distress and Comfortable
HEENT: Normocephalic and Atraumatic; Negative Oxygen
Respiratory: Clear to Auscultation
Cardiac: Tachycardic
GI: Soft, Nontender and Nondistended
Musculoskeletal: No Clubbing
Neuro: Awake, Alert, Oriented, No Motor Deficits and Nonfocal/Grossly Intact
Psych: Confused
Data Reviewed
-
Diagnostic Radiology: Report Reviewed by me
--- NOTE | 2025-03-16 15:01 | PTCARENOTE ---
Received patient from IMU. AAOx3, ambulated bed. Steady gait. Assessed and oriented to room. Call boswell in close reach.
[2025-03-16] MEDS: LOVENOX 40 MG SC (18:00)
[2025-03-16] MEDS: TORADOL 15 MG IV (20:16)
[2025-03-16] MEDS: LUMINAL 32.4 MG PO (21:00)
[2025-03-16] MEDS: TRANDATE 10 MG IV (23:18)
[2025-03-17] VITALS (8 sets, daily range): BP systolic 135–187; BP diastolic 94–125
[2025-03-17] MEDS: TRANDATE 10 MG IV ×3 (03:32→23:20)
[2025-03-17 07:38] LABS: % Basophils 0.9 % (0-2); % Eosinophils 3.4 % (0-6); % Immature Granulocytes 0.5 % (0-0.5); % Lymphocytes 16.1 % (20.5-51.1); % Monocytes 10.8 % (1.7-9.3); % Neutrophils 68.3 % (42.2-75.2); Absolute Eosinophils 0.2 10^3/uL (0-0.7); Absolute Lymphocytes 0.7 10^3/uL (1.2-3.4); Absolute Monocytes 0.5 10^3/uL (0.1-0.6); Hematocrit 29.2 % (37.0-47.0); Hemoglobin 10.8 g/dL (12.0-16.0); Mean Platelet Volume 9.4 fL (7.4-10.4); Nucleated Red Blood Cells % 0 %; Platelet Count 180 10^3/uL (130-400); Red Blood Cell Count 2.92 10^6/uL (4.20-5.40); Red Cell Dist. Width 12.3 % (11.5-14.5); White Blood Cell Count 4.4 10^3/uL (4.8-10.8)
[2025-03-17 08:22] LABS: ALT (SGPT) 13 U/L (0-35); AST (SGOT) 21 U/L (14-36); Albumin 3.4 g/dl (3.5-5.0); Alkaline Phosphatase 87 U/L (38-126); Blood Urea Nitrogen 4 mg/dl (7-17); Calcium 9.3 mg/dl (8.4-10.2); Carbon Dioxide 30 mmol/L (22-30); Chloride 96 mmol/L (98-107); Estimated Creatinine Clearance 111 ml/min; Glucose 98 mg/dl (70-99); Magnesium 1.7 mg/dl (1.6-2.3); Phosphorus 3.8 mg/dl (2.5-4.5); Potassium 3.2 mmol/L (3.5-5.1); Sodium 133 mmol/L (135-145); Total Bilirubin 0.4 mg/dl (0.2-1.3); Total Protein 5.7 g/dl (6.3-8.2); eGFR > 60.00
[2025-03-17] MEDS: PROCARDIA XL (EXTENDED RELEASE) PO (08:46)
[2025-03-17] MEDS: KCL ELIXIR 40 MEQ PO (08:47)
[2025-03-17] MEDS: PROCARDIA XL (EXTENDED RELEASE) 60 MG PO (08:47)
[2025-03-17] MEDS: PROTONIX 40 MG PO (08:48)
[2025-03-17] MEDS: LOPRESSOR 25 MG PO ×2 (08:48→20:08)
[2025-03-17] MEDS: FOLVITE 1 MG PO (08:48)
[2025-03-17] MEDS: VITAMIN B1 100 MG PO ×2 (08:48→20:08)
[2025-03-17] MEDS: LUMINAL 32.4 MG PO ×3 (08:48→20:08)
[2025-03-17] MEDS: NICODERM TRANSDERMAL 21 MG TRANSDERM (08:48)
[2025-03-17] MEDS: LEXAPRO 5 MG PO (08:48)
--- NOTE | 2025-03-17 10:35 | PN.CDI ---
CDI
- -
CDI:
Physician Documentation Request
Admit Date: 03/12/25 17:38
Dear Doctor Magalis,
Patient admitted with alcohol abuse with alcohol withdrawal.
03/13 Nutrition note, 'Pt meets criteria for severe protein calorie malnutrition of acute illness with <50% estimated needs being met >5days, >2% weight loss in 1 week.
Please provide in your note the diagnosis associated with the above nutrition findings ans your assessment:
Severe protein calorie malnutrition of acute illness
Other (please specify)
[place] Criteria ([facility] Hospitalist 2017)
2 or more criteria must be present for either
non severe or severe malnutrition
Note that the criteria differs related to the
presence of an acute or chronic illness
Acute Illness
Energy Intake Non Severe: <75% for >7 days
Severe: <50% for >5 days
Weight Loss Non Severe: 1-2% over 1 week
5% over 1 month
7.5% over 3 months
1 year N/A
Severe: >2% over 1 week
>5% over 1 month
>7.5% over 3 months
1 year N/A
Body Fat Non Severe: Mild Decrease
Severe: Moderate Decrease
Muscle Mass Non Severe: Mild Decrease
Severe: Moderate Decrease
Fluid Accumulation Non Severe: Mild Accumulation
Severe: Moderate to severe
accumulation
Reduced Sustainability Officer Strength Non Severe: N/A
Severe: Measurably reduced
Use of terms such as suspected, likely, concern for, or probable (associated with a specific diagnosis that is being evaluated, monitored, or treated as if it exists) are acceptable and can be coded in the inpatient setting, when documented at the
time of discharge.
Thank you,
Gabby CAMILO,RN,CCDS
CDI Specialist
Available via tiger text
Please use your independent medical judgment in providing your response.
--- NOTE | 2025-03-17 12:37 | W.PN.UPDATE ---
Update Note
Progress Note Update
patient seen chart reviewed. discussed with nursing. when i asked patient about her kids she became very tearful. she feels 'they deserve better'. her kids are ages five and eight. she does not deny the severity of her etoh use. she wants to quit
and says she is committed to sobriety. she is willing to go to rehab ...dual dx .....after her stay here. she told me about her relationship with her partner who is not her but who is the father of her kids. she felt put down in the
relationship contributing to her anxiety. she feels betrayed learning of h's plan for her to move out and he hired a nanny for the kids. it sounds as thought she has suffered in the past from tony panic disorder. she has tried several
antidepressants. she thinks prozac zoloft wellbutrin and maybe effexor. she does not know doses or for how long they were continued . dr marks started her on lexapro yesterday. advised her to give that a try for up to six weeks dosage should be
increased in a few days to 10 mg. her depression began in earnest after the of her second child. it was a difficult and she wound up having a c section. she remembers being in a lot of pain and being despondent she couldn't move.
sometimes bipolar first shows up in the post . i did not really get a hx otherwise which would suggest bipolar.
we discussed the importance of looking frankly at her alcoholism and recognizing triggers and developing a plan for sobriety. it will not happen without a plan which can be developed in rehab.patient does have some supports. her best friend and her
sister. 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
re her anxiety discussed using gabapentin for now starting with 100 mg bid. would avoid using ativan or other bzp unless etoh wd which we are likely past at this point. she has not used ativan as per msas since mar 14. continue phenobarb wd will
follow
[2025-03-17] MEDS: NEURONTIN 100 MG PO ×2 (12:52→20:08)
--- NOTE | 2025-03-17 12:59 | W.PN.HOSP.TC ---
Today's Communication/Plan
-
Phenobarbital taper
Anxiolytics as per psychiatry
Increase Nifedipine, monitor BP
Assessment / Plan
Assessment / Plan
Physical Exam
General: no acute distress, appears comfortable at this time
HEENT: NormoCephalic, Anicteric, [place] Conjunctivae, No Ptosis
Respiratory: Clear; No Wheezes or Rales
Cardiac: S1/S2 Sinus Tachy; No Murmur, Rub, Gallop or Peripheral Edema
GI: Soft, Non Tender, Non Distended, Normal Bowel Sounds and No Hepatosplenomegaly
Musculoskeletal: No Clubbing, No Cyanosis, No Edema, Tenderness to right wrist, right ankle
Neuro: AOx3 conversant coherent
Psych: Calm
34F ETOH Nicotine dependence Depression here for ETOH withdrawal.
#Alcohol abuse/alcohol withdrawal
#History of alcohol withdrawal seizures
#Depression
UDS negative
-received IV Ativan 2 mg IV NSS 1 L IV banana in ER
-MSAS screen with protocol
- Thiamine Folate Supplementation
- alcohol level 258
-Phenobarbital protocol
-B cares consult, patient interested in inpatient ETOH rehab�needs to complete phenobarbital taper prior to discharge
-Psych eval appreciated Lexapro 5 mg daily started
Hypomagnesemia
Hypokalemia
-monitor and replete as necessary
#History alcohol withdrawal seizures
#History of multiple seizures last 25 August 2024
Per reports Cannot have Keppra /phenobarbital due to extreme agitation anger requiring restraints
However patient tolerating phenobarb taper as above without issues.
#Acute hyponatremia likely beer potomania
initial NA 127 since improved to 130s
monitor
#Hypertensive urgency secondary to noncompliance/withdrawal
# Sinus tachycardia likely secondary to withdrawal/volume depletion
IV labetalol 10 mg every 6 hours as needed SBP>165 pritchett >110
- Increase nifedipine to 60 mg daily and Lopressor 25 mg twice daily
-EKG appreciated sinus tachy no significant change from prior EKG Sep 2024
-TSH wnl
-tolerating diet, IVF completed
-monitor and titrate/adjust antihypertensive regimen as necessary; hope we can wean this off outpatient
#Right wrist, right ankle pain secondary to fall a week ago prior to presentation
#Right wrist fracture
hCG negative
Ankle X-ray appreciated no acute fracture/dislocation
Right Wrist X-ray appreciated Fracture at the dorsal aspect of the distal radial metaphysis with minor displacement and impaction. No dislocation. Soft tissue swelling about the wrist.
Orthopedics eval appreciated conservative mgmt recommended, non weightbearing RUE in wrist brace, ice and elevation, outpt follow up in 2 wks recommended
Nicotine vape abuse
Prior half a pack a day cigarette smoker x 14 years
- Vapes multiple times a day for the last 7 years and total nicotine 24 years
- Cessation advised
-nicotine patch and prn nicorette lozenges ordered
PT/OT eval appreciated Outpt Therapy vs No needs
DVT prophylaxis
Subcu Lovenox
Full code Jr can be called for any information [phone] or patient's sister Destinee [phone]
Anticipated Discharge: Within 24 hours
Subjective/Interval History
-
Date of Service: March 17, 2025
Patient could not sleep due to being woken up, persistently hypertensive
Objective Data
-
Labs:
Laboratory Results
03/17/25
07:20
WBC 4.4 L
Hgb 10.8 L
Hct 29.2 L
Plt Count 180
Sodium 133 L
Potassium 3.2 L
Chloride 96 L
Carbon Dioxide 30
BUN 4 L
Creatinine 0.6
Glucose 98
Calcium 9.3
Total Bilirubin 0.4
AST 21
ALT 13
Alkaline Phosphatase 87
Vital Signs:
Vital Signs
Temp Pulse Resp BP Pulse Ox
98.5 F 98 18 135/94 97
03/17/25 11:18 03/17/25 11:18 03/17/25 11:18 03/17/25 11:18 03/17/25 11:18
I&O
03/16/25 03/17/25 03/18/25
06:59 06:59 06:59
Intake Total 1140 / 1140
Balance 1140 / 1140
Review of Systems
-
History Source: Patient
All other systems: Not reviewed unless documented
Data Reviewed
-
Diagnostic Radiology: Report Reviewed by me
--- NOTE | 2025-03-17 16:45 | CM ---
Spoke with Parth Lopez pt to go to [facility] tomorrow.
As per Parth pt will be dc to home with SO and then go to [facility] .
indicated pt will be ready for dc tomorrow.
Spoke with pt in room . She is in agreement with dc plan.
PLAN To Home then [facility] [phone]
[2025-03-17] MEDS: LOVENOX 40 MG SC (18:28)
[2025-03-17] MEDS: CATAPRES 0.1 MG PO (18:29)
[2025-03-17] MEDS: TORADOL 15 MG IV (20:12)
[2025-03-18 03:22] VITALS: BP 188/122
[2025-03-18] MEDS: CATAPRES 0.1 MG PO (04:04)
[2025-03-18 06:08] VITALS: BP 188/119
[2025-03-18] MEDS: PROCARDIA XL (EXTENDED RELEASE) 60 MG PO (06:11)
[2025-03-18] MEDS: LOPRESSOR 25 MG PO (06:12)
--- NOTE | 2025-03-18 06:26 | DOWNTIME ---
There was a [employer] Cann[employer]er Downtime on 03/18/2025 from 0200 to 03/18/2024 at 0318 . Downtime documentation of patient's care, including medication administrations, has been reconciled in the electronic record per guidelines. Refer to the
patient's paper chart under the miscellaneous tab to see printed paper medication records and downtime forms.
--- NOTE | 2025-03-18 06:29 | PTCARENOTE ---
Pt blood pressure elevated at 188/119, HR 89 two hours post STAT PO Clonodine. ASSOCIATE TRAINER aware. Gave the OK to give 0800 Lopressor PO and Procardia PO early. Patient AAOx3, asymptomatic. Call boswell is within reach.
[2025-03-18 07:00] VITALS: BP 145/100
[2025-03-18 07:40] LABS: ALT (SGPT) 15 U/L (0-35); AST (SGOT) 25 U/L (14-36); Albumin 3.4 g/dl (3.5-5.0); Alkaline Phosphatase 87 U/L (38-126); Blood Urea Nitrogen 3 mg/dl (7-17); Calcium 9.5 mg/dl (8.4-10.2); Carbon Dioxide 29 mmol/L (22-30); Chloride 94 mmol/L (98-107); Estimated Creatinine Clearance 111 ml/min; Glucose 95 mg/dl (70-99); Potassium 3.6 mmol/L (3.5-5.1); Sodium 130 mmol/L (135-145); Total Bilirubin 0.4 mg/dl (0.2-1.3); Total Protein 5.7 g/dl (6.3-8.2); eGFR > 60.00
[2025-03-18 07:46] VITALS: BP 145/100
[2025-03-18 08:35] LABS: % Basophils 1.1 % (0-2); % Lymphocytes 20.9 % (20.5-51.1); % Monocytes 19.1 % (1.7-9.3); % Neutrophils 54.9 % (42.2-75.2); Absolute Eosinophils 0.1 10^3/uL (0-0.7); Absolute Lymphocytes 0.7 10^3/uL (1.2-3.4); Absolute Monocytes 0.7 10^3/uL (0.1-0.6); Absolute Neutrophils 1.9 10^3/uL (1.4-6.5); Hematocrit 29.6 % (37.0-47.0); Hemoglobin 10.4 g/dL (12.0-16.0); Mean Corp Hgb Conc. 35.1 g/dL (33.0-37.0); Mean Corpuscular Hgb 36.5 pg (27.0-31.0); Mean Corpuscular Volume 103.9 fL (81.0-99.0); Mean Platelet Volume 9.5 fL (7.4-10.4); Nucleated Red Blood Cells % 0 %; Platelet Count 231 10^3/uL (130-400); Red Blood Cell Count 2.85 10^6/uL (4.20-5.40); Red Cell Dist. Width 12.5 % (11.5-14.5); White Blood Cell Count 3.5 10^3/uL (4.8-10.8)
[2025-03-18] MEDS: TORADOL 15 MG IV (08:44)
[2025-03-18] MEDS: FLUSH (NSS) 2 FLUSH IV (08:45)
[2025-03-18] MEDS: PROTONIX 40 MG PO (08:46)
[2025-03-18] MEDS: NEURONTIN 100 MG PO (08:46)
[2025-03-18] MEDS: LEXAPRO 5 MG PO (08:46)
[2025-03-18] MEDS: FOLVITE 1 MG PO (08:46)
[2025-03-18] MEDS: NICODERM TRANSDERMAL 21 MG TRANSDERM (08:46)
[2025-03-18] MEDS: LUMINAL 32.4 MG PO (08:46)
[2025-03-18] MEDS: VITAMIN B1 100 MG PO (08:46)
--- NOTE | 2025-03-18 10:00 | PTCARENOTE ---
Discussed pateint with Dr Quintero- made aware of elevated BP's during the night and medications given. no new orders. plan of care on going.
--- NOTE | 2025-03-18 10:33 | PTCARENOTE ---
patient reporting feeling'agitated', support given, complaining about not getting any sleep due to staff taking vital signs and drawing blood. Patient took shower this morning and refused to be placed back on groundwater monitoring technician. patient for
discharge today per Dr Blancas.
--- NOTE | 2025-03-18 10:56 | CM ---
Spoke with Parth at [facility] . He confirmed pt to go to [facility] today.
[facility] has all paper work they need.
As per Parth pt will be dc to home with SO and SO will drive her to [facility] [address] , [facility] [address] [address] or [phone].
indicated pt will be ready for dc today.
Spoke with pt in room . She is in agreement with dc plan.
PLAN To Home then [facility] [phone]
[2025-03-18 11:15] VITALS: BP 131/92
--- NOTE | 2025-03-18 11:46 | W.PN.HOSP.TC ---
Addendum entered and electronically signed by Aashish Blancas MD 03/18/25 16:01:
[id number]
Addendum entered and electronically signed by Aashish Blancas MD 03/18/25 15:45:
Severe protein calorie malnutrition of acute illness
Original Note:
Today's Communication/Plan
-
Phenobarbital taper, complete today
Anxiolytics as per psychiatry
Antihypertensive regimen - titrate and hopefully wean as tolerated
F/u ortho with imaging within 1 -2 weeks
F/u CBC and BMP in 1 week
F/u PCP within 1 week
Assessment / Plan
Assessment / Plan
Physical Exam
General: no acute distress, appears comfortable at this time
HEENT: NormoCephalic, Anicteric, [place] Conjunctivae, No Ptosis
Respiratory: Clear; No Wheezes or Rales
Cardiac: S1/S2 Sinus Tachy; No Murmur, Rub, Gallop or Peripheral Edema
GI: Soft, Non Tender, Non Distended, Normal Bowel Sounds and No Hepatosplenomegaly
Musculoskeletal: No Clubbing, No Cyanosis, No Edema, Tenderness to right wrist, right ankle
Neuro: AOx3 conversant coherent
Psych: Calm
34F ETOH Nicotine dependence Depression here for ETOH withdrawal.
#Alcohol abuse/alcohol withdrawal
#History of alcohol withdrawal seizures
#Depression
UDS negative
-received IV Ativan 2 mg IV NSS 1 L IV banana in ER
-MSAS screen with protocol
- Thiamine Folate Supplementation
- alcohol level 258
-Phenobarbital protocol, complete today
-B cares consult, patient interested in inpatient ETOH rehab�needs to complete phenobarbital taper prior to discharge
-Psych eval appreciated Lexapro 5 mg daily and gabapentin started
Hypomagnesemia
Hypokalemia
-monitor and replete as necessary
#History alcohol withdrawal seizures
#History of multiple seizures last 25 August 2024
Per reports Cannot have Keppra /phenobarbital due to extreme agitation anger requiring restraints
However patient tolerating phenobarb taper as above without issues.
#Acute hyponatremia likely beer potomania
initial NA 127 since improved to 130s
monitor
#Hypertensive urgency secondary to noncompliance/withdrawal
# Sinus tachycardia likely secondary to withdrawal/volume depletion
IV labetalol 10 mg every 6 hours as needed SBP>165 pritchett >110
- Increase nifedipine to 60 mg daily and Lopressor 25 mg twice daily
-EKG appreciated sinus tachy no significant change from prior EKG Sep 2024
-TSH wnl
-tolerating diet, IVF completed
-monitor and titrate/adjust antihypertensive regimen as necessary; hope we can wean this off outpatient
#Right wrist, right ankle pain secondary to fall a week ago prior to presentation
#Right wrist fracture
hCG negative
Ankle X-ray appreciated no acute fracture/dislocation
Right Wrist X-ray appreciated Fracture at the dorsal aspect of the distal radial metaphysis with minor displacement and impaction. No dislocation. Soft tissue swelling about the wrist.
Orthopedics eval appreciated conservative mgmt recommended, non weightbearing RUE in wrist brace, ice and elevation, outpt follow up in 2 wks recommended; x-rays outpatient within 1 week
Nicotine vape abuse
Prior half a pack a day cigarette smoker x 14 years
- Vapes multiple times a day for the last 7 years and total nicotine 24 years
- Cessation advised
-nicotine patch and prn nicorette lozenges ordered
PT/OT eval appreciated Outpt Therapy vs No needs
DVT prophylaxis
Subcu Lovenox
Full code Jr can be called for any information [phone] or patient's sister Destinee [phone]
More than 30 minutes spent in discharge including
Final examination of the patient
Summarizing hospital stay
Instructions for continuing care to all relevant caregivers
Preparation of discharge records, prescriptions, and referral forms
Total time spent (in minutes): 37
Anticipated Discharge: Today
Subjective/Interval History
-
Date of Service: March 18, 2025
No acute events overnight, hypertension still noted
Objective Data
-
Labs:
Laboratory Results
03/18/25
05:55
WBC 3.5 L
Hgb 10.4 L
Hct 29.6 L
Plt Count 231 D
Sodium 130 L
Potassium 3.6
Chloride 94 L
Carbon Dioxide 29
BUN 3 L
Creatinine 0.6
Glucose 95
Calcium 9.5
Total Bilirubin 0.4
AST 25
ALT 15
Alkaline Phosphatase 87
Vital Signs:
Vital Signs
Temp Pulse Resp BP Pulse Ox
98.2 F 94 16 131/92 99
03/18/25 11:15 03/18/25 11:15 03/18/25 11:15 03/18/25 11:15 03/18/25 11:15
I&O
03/17/25 03/18/25 03/19/25
06:59 06:59 06:59
Intake Total 1140 / 1140 2760 / 2760
Balance 1140 / 1140 2760 / 2760
Review of Systems
-
History Source: Patient
All other systems: Not reviewed unless documented
Physical Exam
-
General: No Apparent Distress and Comfortable
HEENT: Normocephalic and Atraumatic; Negative Oxygen
Respiratory: Clear to Auscultation
Cardiac: Tachycardic
GI: Soft, Nontender and Nondistended
Musculoskeletal: No Clubbing
Neuro: Awake, Alert, Oriented, No Motor Deficits and Nonfocal/Grossly Intact
Psych: Confused
Data Reviewed
-
Diagnostic Radiology: Report Reviewed by me
--- NOTE | 2025-03-18 12:20 | W.DS.TRANS ---
DC Summary - Care Management Associate
-
Discharge Instructions:
Discharge Diagnosis/Procedures #Alcohol abuse/alcohol withdrawal
#History of alcohol withdrawal seizures
#Depression
#Hypertension
#Right wrist fracture
Activity As tolerated
Blood Work cbc and cmp in 1 week with pcp, monitoring
sodium and potassium
Instructions:
Stand-Alone Forms:
Changes to Home Medications: Yes
Discharge Medications:
DC Medications w/original date entered in [employer]
norethindrone 1.5 mg-ethinyl estradiol 30 mcg(21)/iron 75 mg(7) tablet (Sera Fe 1.5/30 (28)) 1 tab PO DAILY Hormonal Agent 03/12/25
escitalopram oxalate 5 mg tablet 5 mg PO DAILY 30 days #30 tabs 03/18/25
folic acid 1 mg tablet 1 mg PO DAILY 30 days #30 tabs 03/18/25
gabapentin 100 mg capsule 100 mg PO BID 30 days #60 caps 03/18/25
metoprolol tartrate 25 mg tablet 25 mg PO BID 30 days #60 tabs 03/18/25
nicotine (polacrilex) 2 mg gum 4 mg PO Q4HPRN PRN smoking cravings #100 ea 03/18/25
nicotine 21 mg/24 hr daily transdermal patch 21 mg transdermal DAILY #28 ea 03/18/25
nifedipine 60 mg tablet,extended release 60 mg PO DAILY 30 days #30 tabs 03/18/25
thiamine mononitrate (vit B1) 100 mg tablet 100 mg PO BID 30 days #60 tabs 03/18/25
Home Medication Changes
escitalopram oxalate 5 mg tablet 5 mg PO DAILY 30 days #30 tabs 03/18/25
folic acid 1 mg tablet 1 mg PO DAILY 30 days #30 tabs 03/18/25
gabapentin 100 mg capsule 100 mg PO BID 30 days #60 caps 03/18/25
metoprolol tartrate 25 mg tablet 25 mg PO BID 30 days #60 tabs 03/18/25
nicotine (polacrilex) 2 mg gum 4 mg PO Q4HPRN PRN smoking cravings #100 ea 03/18/25
nicotine 21 mg/24 hr daily transdermal patch 21 mg transdermal DAILY #28 ea 03/18/25
nifedipine 60 mg tablet,extended release 60 mg PO DAILY 30 days #30 tabs 03/18/25
thiamine mononitrate (vit B1) 100 mg tablet 100 mg PO BID 30 days #60 tabs 03/18/25
Pending Results: No
--- NOTE | 2025-03-18 12:27 | W.PN.UPDATE ---
Update Note
Progress Note Update
patient seen chart reviewed. discussed with nursing and dr gibbons. significant other at bedside. the patient is set for dc to [facility]. will transport her to home to pack and then bring her to [facility]. she started to cry. offered
encouragement and support to patient and significant other . this ordeal has been difficult for both of them. she has started gabapentin. she is not sure yet how much it is helping but will continue and assess. there was some confusion as to
atomoxetine. patient has hx adhd since childhood and has taken stimulants. when she was at rehab recently it was suggested she take strattera instead but she never started it. would NOT dc her on strattera. the adhd issue should be reassessed as
she gets sober. i would be reluctant to use controlled substances but it will be up to her prescribers in the future.
== END 2025-03-18 13:09 | disposition home or self-care (01) | DRG 896 ==
LOC: 4 EAST ACU 17:38
PROVIDERS: Clinical Nurse Specialist Family Health; Internal Medicine; Nurse Practitioner; ADMITTING PHYSICIAN Hospitalist; ATTENDING PHYSICIAN Internal Medicine; CONSULT PHYSICIAN Psychiatry & Neurology Psychiatry; EMERGENCY PHYSICIAN Emergency Medicine; FAMILY PHYSICIAN Family Medicine; OTHER PHYSICIAN Student in an Organized Health Care Education/Training Program
DX: F10.139 Alcohol abuse with withdrawal, unspecified (principal); E43 Unspecified severe protein-calorie malnutrition; E87.1 Hypo-osmolality and hyponatremia; F32.A Depression, unspecified; I10 Essential (primary) hypertension; S62.101A Fracture of unspecified carpal bone, right wrist, initial encounter for closed fracture; Z68.20 Body mass index [BMI] 20.0-20.9, adult; E83.42 Hypomagnesemia; E87.6 Hypokalemia; R56.9 Unspecified convulsions; I16.0 Hypertensive urgency; E86.9 Volume depletion, unspecified; W10.9XXA Fall (on) (from) unspecified stairs and steps, initial encounter; F41.9 Anxiety disorder, unspecified; Z91.148 Patient's other noncompliance with medication regimen for other reason; Z78.1 Physical restraint status; F17.290 Nicotine dependence, other tobacco product, uncomplicated; F90.9 Attention-deficit hyperactivity disorder, unspecified type; S70.11XA Contusion of right thigh, initial encounter; Z88.8 Allergy status to other drugs, medicaments and biological substances
CPT/HCPCS: 73110; 73610; 80053; 80306; 81003; 82010; 82077; 82977; 83735; 83930; 83935; 84100; 84300; 84443; 84703; 85014; 85018; 85025; 85610; 85730; 86850; 86900; 86901; 96361; 96365; 96366; 96375; 96376; 97162; 97166; 97530; 97760; 99284

== ENCOUNTER → 2025-05-03 13:40 | Outpatient (REF) | payer OTHER, SELFPAY | LOC: RAD 13:40 | PROVIDERS: ATTENDING PHYSICIAN Family Medicine | DX: S62.101D Fracture of unspecified carpal bone, right wrist, subsequent encounter for fracture with routine healing (principal) | CPT/HCPCS: 73110 ==

== ENCOUNTER 2025-09-29 06:18 | Day surgery (SDC) | payer OTHER, SELFPAY ==
[2025-09-29] VITALS (9 sets, daily range): BP systolic 88–106; BP diastolic 56–80; BMI 24.1
[2025-09-29] MEDS: TYLENOL 1000 MG PO (08:21)
[2025-09-29] MEDS: NORMOSOL-R/PLASMALYTE-A 1000 IV (08:21)
[2025-09-29] MEDS: ROXICODONE 5 MG PO (11:14)
== END 2025-09-29 11:23 | disposition home or self-care (01) ==
LOC: SDS 06:18
PROVIDERS: ATTENDING PHYSICIAN Otolaryngology
DX: J34.3 Hypertrophy of nasal turbinates (principal); J34.2 Deviated nasal septum
CPT/HCPCS: 30140

== ENCOUNTER 2025-11-07 17:37 | Inpatient (IN) | payer OTHER, SELFPAY ==
[2025-11-07] VITALS (10 sets, daily range): BP systolic 148–167; BP diastolic 10–112; BMI 27.1; BMI 23.2
[2025-11-07 14:41] LABS: Hematocrit 39.1 % (37.0-47.0); Hemoglobin 14.5 g/dL (12.0-16.0); Mean Corp Hgb Conc. 37.1 g/dL (33.0-37.0); Mean Corpuscular Volume 90.7 fL (81.0-99.0); Nucleated Red Blood Cells % 0 %; Red Cell Dist. Width 16.4 % (11.5-14.5)
[2025-11-07 14:47] LABS: Blood Urea Nitrogen 7 mg/dl (7-17); Calcium 9.0 mg/dl (8.4-10.2); Carbon Dioxide 25 mmol/L (22-30); Chloride 95 mmol/L (98-107); Estimated Creatinine Clearance 91 ml/min; Glucose 115 mg/dl (70-99); Potassium 4.2 mmol/L (3.5-5.1); Sodium 136 mmol/L (135-145); eGFR > 60.00
[2025-11-07] MEDS: ATIVAN 2 MG IV (15:42)
[2025-11-07] MEDS: NSS 500 IV (15:43)
[2025-11-07 15:48] LABS: Platelet Count 99 10^3/uL (130-400)
[2025-11-07] MEDS: ZOFRAN 4 MG IV (15:54)
--- NOTE | 2025-11-07 16:15 | PHANOTE ---
med rec tech: med rec compiled from pharmacy fills and most recent doctor visit
--- NOTE | 2025-11-07 16:19 | ED.GENMED ---
History of Present Illness
<Linnette Rao PA-C - Last Filed: 11/07/25 17:40>
General
Chief Complaint: Alcohol Problem
Time Seen by Provider: 11/07/25 14:59
History of Present Illness
History of Present Illness:
Patient is a 28 female with past medical history of alcohol use who brought in by EMS after expressing suicidal ideations at home. Situation surrounding this is unclear. Patient reports suicidal patient is here however she is still intoxicated.
Offers no complaints. Does not want to participate with exam.
Past History
<Linnette Rao PA-C - Last Filed: 11/07/25 17:40>
Past History
ED Past Medical History: HTN, Seizures, Psychiatric (anxiety, depression, ADHD) and Other (Recurrent syncope)
ED Past Surgical History: and Other (Breast augmentation, )
Social History
Tobacco: Former smoker
Alcohol: Occasional
Drug: None
Personal: Single
Living: with family
Family History
Family History: Other (Reviewed and noncontributory)
Phy Exam
<Linnette Rao PA-C - Last Filed: 11/07/25 17:40>
General Physical Exam
General Presentation: no apparent distress and mild distress
General Skin: warm and dry
General Habitus: normal
General Mental: appears intoxicated and other (Tremulous)
General Hydration: appears well hydrated
ENT Exam
ENT Exam: EOMI, pharynx normal, neck supple and normocephalic
Eye Exam
Eye Exam: PERRL, cornea clear and conjunctiva normal
Cardiovascular Exam
Cardiovascular Exam: regular rate/rhythm, no edema, no murmur and normal peripheral pulses
Pulmonary Exam
Pulmonary Exam: lungs clear, no respiratory distress, no rales, no crackles, no rhonchi, no stridor, no wheezing and no cough
Gastrointestinal Exam
Gastrointestinal Exam: normal bowel sounds, non tender, soft, no organomegaly, no pulsatile mass and non distended
Neurological Exam
Neurological Exam: alert, oriented x3, no motor deficits and speech normal
Musculoskeletal Exam
Musculoskeletal Exam: full ROM and no edema
Skin Exam
Skin Exam: normal color, warm/dry, no rash and no petechia
Psychiatric Exam
Psychiatric Exam: normal mood/affect
Scores
<Linnette Rao PA-C - Last Filed: 11/07/25 17:40>
Withdrawal Assessment of Alcohol
Withdrawal Assessment Completed?: Yes
Nausea and Vomiting: Mild nausea with no vomiting
Tactile Disturbances: None
Tremor: Moderate, with patient's arms extended
Auditory Disturbances: Not present
Paroxysmal Sweats: No sweat visible
Visual Disturbances: Not present
Anxiety: Moderately anxious, or guarded, so anxiety is inferred
Headache, Fullness in Head: Very mild
Agitation: Moderately fidgety and restless
Orientation and clouding of sensorium: Cannot do serial additions or is uncertain about date
Total CIWA Score: 15
Alcohol Withdrawal Medication Recommendation: Equal to MSAS Score 8-11. Lorazepam 1-2mg IV NOW & re-assess q1hr
<Che Hardy MD - Last Filed: 11/07/25 17:55>
Withdrawal Assessment of Alcohol
Total CIWA Score: 15
Alcohol Withdrawal Medication Recommendation: Equal to MSAS Score 8-11. Lorazepam 1-2mg IV NOW & re-assess q1hr
Course
<Linnette Rao PA-C - Last Filed: 11/07/25 17:40>
Orders/Labs/Results
Orders:
Orders
11/07/25 14:02
Alcohol Urgent
Basic Metabolic Panel Urgent
Complete Blood Count/With Diff Urgent
HCG, Serum Qualitative Screen Urgent
Comment: ADD ON
11/07/25 Dinner
Regular
At Your Request: Full Participation
11/07/25 15:32
Electrocardiogram (*1) Urgent
Reason for Study: Tachycardia
EKG- Treatment ONCE
0.9% Sodium Chloride 500 ml [Nss] 500 ml IV BOLUS
11/07/25 15:33
Lorazepam [Ativan] 2 mg IV NOW STA
11/07/25 15:49
Ondansetron Injectable [Zofran] 4 mg IV NOW STA
11/07/25 16:56
Admit/Transfer Patient As Directed
Co-Sign Provider:
Level of Care: Inpatient admission
Assign to:: IMU- Intermediate Care
Physician / Group: Hospitalist
Diagnosis: Alcohol WD
Reason for Hospitalization: Alcohol WD, h/o DTs and seizures
Expected length of stay greater than two midnights?: Yes
ELOS- Estimated Length of Stay in days: 4
I certify the patient meets the requirements for IP care: Yes
PRN Pain Medication Management As Directed
May give lesser potent ordered pain med per pt: Yes
preference::
Protocol:: Medication orders for pain may be administered in a
manner that supports deferring to patient preference
when the pt is:
- Requesting an ordered lesser potent pain medication.
Least to most potent pain medications are defined
as: acetaminophen < NSAID < tramadol < opioids
(morphine, oxycodone, hydromorphone).
- Requesting a lesser dose of the same medication IF
ORDERED.
- Requesting a less intrusive route of administration
if both routes are prescribed by the provider (PO <
IV).
11/07/25 16:58
Code Status As Directed
Resuscitation Status: Full Code
11/07/25 17:14
Add On- LAB Urgent
Tests Added?: hcg
11/07/25 17:41
0.9% Sodium Chloride 1000 ml [Nss] 1,000 ml IV 200 mls/hr
0.9% Sodium Chloride [Nss (Preservative Free)] See Protocol IV PRN PRN
Bisacodyl [Dulcolax] 10 mg RECTAL [id number] PRN
Docusate W/Senna [Senokot-S] 1 tablet PO BIDPRN PRN
FOLic ACID [Folvite] 1 mg PO DAILY
FOLic ACID [Folvite] 1 mg 0.9% Sodium Chloride 50 ml [Nss] 50 ml IV DAILYPRN
Lorazepam [Ativan] 1 mg IV Q1HPRN PRN
Lorazepam [Ativan] 1 mg PO Q2HPRN PRN
Lorazepam [Ativan] 2 mg IV Q1HPRN PRN
Polyethylene Glycol Powder [Miralax] 17 grams PO DAILYPRN PRN
11/07/25 17:41
Case Management Consult Once
Case Management Consult: Other
Comment: Substance abuse counseling
DIETARY IP CONSULT Routine
Reason for Consult: Nutrition support, possible refeeding guidelines
PSYCHIATRY CONSULT Urgent
Consulting Provider: Satish Sanders
Was physician already notified: Yes
Reason for consult: Psychiatry consult required for patients MSAS 8 or greater
Activity As Directed
Activity Level: With Assistance
MSAS SCORE As Directed
MSAS Score 0-4: Repeat MSAS every 2 hours until 0-4 for three consecutive assessments, then every 4 hours x 48
hours.
MSAS Score 5-7: For MILD withdrawl symptoms. Repeat MSAS and RASS every 2 hours
MSAS Score 8-11: For MODERATE withdrawal symptoms. Repeat MSAS and RASS every 1 hour. Consider ICU or IMU
level of care.
MSAS Score > 11: For SEVERE withdrawal symptoms. Repeat MSAS and RASS every 1 hour. Notify provider, consider
ICU level of care.
MSAS Additional Instructions: If no improvement or no decrease in score from severe to moderate within 12
hours, consult psychiatry
MSAS Notify Provider: Notify provider if patient requires more than 10 mg of Lorazepam in eight hour period.
Pneumatic Compression Sleeves As Directed
Type: Knee high
Vital Signs As Directed
Frequency: Per unit guidelines
DX Deep Vein Thrombosis Video Routine
11/07/25 18:00
Nicotine [Nicoderm Transdermal] 21 mg TRANSDERM DAILY
11/07/25 20:00
Metoprolol [Lopressor] 50 mg PO BID
11/07/25 22:00
Buspirone [Buspar] 15 mg PO TID
Naltrexone HCl [Revia] 50 mg PO HS
Trazodone [Desyrel] 100 mg PO HS
11/08/25 00:00
Thiamine Injection 200 mg IV Q8
11/08/25 06:00
Basic Metabolic Panel IN AM
Complete Blood Count/No Diff IN AM
Lipase IN AM
Magnesium IN AM
TSH IN AM
11/08/25 08:00
Cyanocobalamin [Vitamin B-12] 1,000 mcg PO DAILY
Escitalopram Oxalate [Lexapro] 20 mg PO DAILY
NIFEdipine EXTENDED RELEASE [Procardia Xl (Extended Release)] 30 mg PO DAILY
biotin 2,500 mcg PO DAILY
dextroamphetamine-amphetamine 2 cap PO DAILY
norethindrone-e.estradiol-iron [Sera Bloom 1.5 (28)] 1 tablet PO DAILY
11/10/25 20:00
Thiamine HCl [Vitamin B1] 100 mg PO BID
Abnormal Lab Results
11/07/25
14:02
MCH 33.6 H pg
(27.0-31.0)
MCHC 37.1 H g/dL
(33.0-37.0)
RDW 16.4 H %
(11.5-14.5)
Plt Count 99 L 10^3/uL
(130-400)
Absolute Lymphs (auto) 0.8 L 10^3/uL
(1.2-3.4)
Immature Gran % 0.8 H %
(0-0.5)
Lymphocytes % 15.9 L %
(20.5-51.1)
Monocytes % 10.8 H %
(1.7-9.3)
Chloride 95 L mmol/L
(98-107)
Glucose 115 H mg/dl
(70-99)
Alcohol, Quantitative 431 H* mg/dl
11/07/25 14:02
11/07/25 14:02
Vital Signs
Initial and Last Documented VS:
Initial Vital Signs
Temp Pulse Resp BP Pulse Ox
98.0 F 147 16 166/10 99
11/07/25 13:47 11/07/25 13:47 11/07/25 13:47 11/07/25 13:47 11/07/25 13:47
Last Documented Vital Signs
Temp Pulse Resp BP Pulse Ox
98.0 F 160 20 154/96 99
11/07/25 13:47 11/07/25 17:45 11/07/25 17:45 11/07/25 17:00 11/07/25 16:19
<Che Hardy MD - Last Filed: 11/07/25 17:55>
Orders/Labs/Results
Orders:
Orders
11/07/25 14:02
Alcohol Urgent
Basic Metabolic Panel Urgent
Complete Blood Count/With Diff Urgent
HCG, Serum Qualitative Screen Urgent
Comment: ADD ON
11/07/25 Dinner
Regular
At Your Request: Full Participation
11/07/25 15:32
Electrocardiogram (*1) Urgent
Reason for Study: Tachycardia
EKG- Treatment ONCE
0.9% Sodium Chloride 500 ml [Nss] 500 ml IV BOLUS
11/07/25 15:33
Lorazepam [Ativan] 2 mg IV NOW STA
11/07/25 15:49
Ondansetron Injectable [Zofran] 4 mg IV NOW STA
11/07/25 16:56
Admit/Transfer Patient As Directed
Co-Sign Provider:
Level of Care: Inpatient admission
Assign to:: IMU- Intermediate Care
Physician / Group: Hospitalist
Diagnosis: Alcohol WD
Reason for Hospitalization: Alcohol WD, h/o DTs and seizures
Expected length of stay greater than two midnights?: Yes
ELOS- Estimated Length of Stay in days: 4
I certify the patient meets the requirements for IP care: Yes
PRN Pain Medication Management As Directed
May give lesser potent ordered pain med per pt: Yes
preference::
Protocol:: Medication orders for pain may be administered in a
manner that supports deferring to patient preference
when the pt is:
- Requesting an ordered lesser potent pain medication.
Least to most potent pain medications are defined
as: acetaminophen < NSAID < tramadol < opioids
(morphine, oxycodone, hydromorphone).
- Requesting a lesser dose of the same medication IF
ORDERED.
- Requesting a less intrusive route of administration
if both routes are prescribed by the provider (PO <
IV).
11/07/25 16:58
Code Status As Directed
Resuscitation Status: Full Code
11/07/25 17:14
Add On- LAB Urgent
Tests Added?: hcg
11/07/25 17:41
0.9% Sodium Chloride 1000 ml [Nss] 1,000 ml IV 200 mls/hr
0.9% Sodium Chloride [Nss (Preservative Free)] See Protocol IV PRN PRN
Bisacodyl [Dulcolax] 10 mg RECTAL [id number] PRN
Docusate W/Senna [Senokot-S] 1 tablet PO BIDPRN PRN
FOLic ACID [Folvite] 1 mg PO DAILY
FOLic ACID [Folvite] 1 mg 0.9% Sodium Chloride 50 ml [Nss] 50 ml IV DAILYPRN
Lorazepam [Ativan] 1 mg IV Q1HPRN PRN
Lorazepam [Ativan] 1 mg PO Q2HPRN PRN
Lorazepam [Ativan] 2 mg IV Q1HPRN PRN
Polyethylene Glycol Powder [Miralax] 17 grams PO DAILYPRN PRN
11/07/25 17:41
Case Management Consult Once
Case Management Consult: Other
Comment: Substance abuse counseling
DIETARY IP CONSULT Routine
Reason for Consult: Nutrition support, possible refeeding guidelines
PSYCHIATRY CONSULT Urgent
Consulting Provider: Satish Sanders
Was physician already notified: Yes
Reason for consult: Psychiatry consult required for patients MSAS 8 or greater
Activity As Directed
Activity Level: With Assistance
MSAS SCORE As Directed
MSAS Score 0-4: Repeat MSAS every 2 hours until 0-4 for three consecutive assessments, then every 4 hours x 48
hours.
MSAS Score 5-7: For MILD withdrawl symptoms. Repeat MSAS and RASS every 2 hours
MSAS Score 8-11: For MODERATE withdrawal symptoms. Repeat MSAS and RASS every 1 hour. Consider ICU or IMU
level of care.
MSAS Score > 11: For SEVERE withdrawal symptoms. Repeat MSAS and RASS every 1 hour. Notify provider, consider
ICU level of care.
MSAS Additional Instructions: If no improvement or no decrease in score from severe to moderate within 12
hours, consult psychiatry
MSAS Notify Provider: Notify provider if patient requires more than 10 mg of Lorazepam in eight hour period.
Pneumatic Compression Sleeves As Directed
Type: Knee high
Vital Signs As Directed
Frequency: Per unit guidelines
DX Deep Vein Thrombosis Video Routine
11/07/25 18:00
Nicotine [Nicoderm Transdermal] 21 mg TRANSDERM DAILY
11/07/25 20:00
Metoprolol [Lopressor] 50 mg PO BID
11/07/25 22:00
Buspirone [Buspar] 15 mg PO TID
Naltrexone HCl [Revia] 50 mg PO HS
Trazodone [Desyrel] 100 mg PO HS
11/08/25 00:00
Thiamine Injection 200 mg IV Q8
11/08/25 06:00
Basic Metabolic Panel IN AM
Complete Blood Count/No Diff IN AM
Lipase IN AM
Magnesium IN AM
TSH IN AM
11/08/25 08:00
Cyanocobalamin [Vitamin B-12] 1,000 mcg PO DAILY
Escitalopram Oxalate [Lexapro] 20 mg PO DAILY
NIFEdipine EXTENDED RELEASE [Procardia Xl (Extended Release)] 30 mg PO DAILY
biotin 2,500 mcg PO DAILY
dextroamphetamine-amphetamine 2 cap PO DAILY
norethindrone-e.estradiol-iron [Sera Fe 1.5/30 (28)] 1 tablet PO DAILY
11/10/25 20:00
Thiamine HCl [Vitamin B1] 100 mg PO BID
Abnormal Lab Results
11/07/25
14:02
MCH 33.6 H pg
(27.0-31.0)
MCHC 37.1 H g/dL
(33.0-37.0)
RDW 16.4 H %
(11.5-14.5)
Plt Count 99 L 10^3/uL
(130-400)
Absolute Lymphs (auto) 0.8 L 10^3/uL
(1.2-3.4)
Immature Gran % 0.8 H %
(0-0.5)
Lymphocytes % 15.9 L %
(20.5-51.1)
Monocytes % 10.8 H %
(1.7-9.3)
Chloride 95 L mmol/L
(98-107)
Glucose 115 H mg/dl
(70-99)
Alcohol, Quantitative 431 H* mg/dl
11/07/25 14:02
11/07/25 14:02
Vital Signs
Initial and Last Documented VS:
Initial Vital Signs
Temp Pulse Resp BP Pulse Ox
98.0 F 147 16 166/10 99
11/07/25 13:47 11/07/25 13:47 11/07/25 13:47 11/07/25 13:47 11/07/25 13:47
Last Documented Vital Signs
Temp Pulse Resp BP Pulse Ox
98.0 F 160 20 154/96 99
11/07/25 13:47 11/07/25 17:45 11/07/25 17:45 11/07/25 17:00 11/07/25 16:19
<Linnette Rao PA-C - Last Filed: 11/07/25 17:40>
MDM/Problems Addressed
Differential Diagnosis Includes:
Patient was found to have alcohol level of 431. Denies drinking today. Lab work otherwise unremarkable. No electrolyte derangements. Patient is found to be tachycardic to 140 and tremulous. EKG obtained and shows sinus tachycardia at 142.
Given 2 mg of IV Ativan with improvement in her tachycardia. 1 L bolus ordered. Patient has had prior withdrawal seizures and is already showing signs of alcohol withdrawal. Given this I have spoken to the hospitalist who will admit to their
service. She can be seen by crisis as patient for possible placement once she is medically cleared.
<Linnette Rao PA-C - Last Filed: 11/07/25 17:40>
*Pulse Oximetry
SaO2: 99
Oxygen Mode of Delivery: Room air
Patient hypoxic: no
*Critical Care Note
Total Time (30-74mins, 75-104mins- exclusive of procedures): Not Applicable
ED Attending Note
<Linnette Rao PA-C - Last Filed: 11/07/25 17:40>
-
Portions of this chart may have been created with voice recognition software.� Occasional wrong word or��sound alike� substitutions may have occurred due to the inherent limitations of voice recognition software.
<Che Hardy MD - Last Filed: 11/07/25 17:55>
ED Attending Note
Patient seen and examined by attending physician: Yes
I performed the substantive portion of visit, reviewed & personally made and approve the management plan that is documented in note by myself or ASHELY.: Yes
ED Attending Note:
Patient is a 34-year-old presenting to the emergency department after being intoxicated. History is limited secondary to patient's intoxication but per medics police were on scene tox occasion. Patient does state that she was suicidal. Patient
continued to suicidal though is not forthcoming with additional history. On my evaluation patient does appear intoxicated. Heart is regular rhythm tachycardic rate. Abdomen soft nondistended nontender. Initially on arrival patient tachycardic
likely component of dehydration/possible withdrawal as patient does state that she drinks a lot of alcohol though cannot quantify. Will give fluids as well as Ativan. Patient does have history of alcohol withdrawal seizures. Alcohol level here is
significantly elevated. Patient will benefit from admission for monitoring as well as for withdrawal
Discharge Plan
Departure
Patient Disposition: Admit
Date of Disposition: 11/07/25
Time of Disposition: 17:13
Presentation/result/management discussed w/ accepting MD/DO: Hospitalist
Discharge Problem:
Alcohol withdrawal delirium, Tachycardia
Interventions
Interventions:
*General Assessment Last Done: 11/07/25 13:47
*Neglect/Abuse Screening Last Done: 11/07/25 13:47
[facility] Risk Assessment Tool Last Done: 11/07/25 13:45
ED- Neurological Assessment Last Done: 11/07/25 14:58
ED-Psychological Assessment Last Done: 11/07/25 14:59
[2025-11-07 17:49] LABS: HCG, Serum Qualitative Screen Negative
[2025-11-07] MEDS: ATIVAN 1 MG IV ×3 (18:12→21:12)
[2025-11-07] MEDS: NICODERM TRANSDERMAL 21 MG TRANSDERM (18:44)
[2025-11-07] MEDS: FOLVITE 1 MG PO (18:44)
[2025-11-07] MEDS: NSS 1000 IV (18:45)
[2025-11-07] MEDS: LOPRESSOR 50 MG PO (19:58)
--- NOTE | 2025-11-07 19:58 | HPS.HSE ---
Family Physician
-
Family Physician: Kyrie Aguirre, DO
Chief Complaint
-
Intoxication
History of Present Illness
28 woman with past medical history of alcohol use who brought in by EMS after expressing suicidal ideations at home. Situation surrounding this is unclear. She is still intoxicated. Offers no complaints. Did not have suicidality with my exam,
but had alcohol level of 431. Has had alcohol WD in past.
Medical History
Past Medical History
Past Medical History: Reports Other
Additional Past Medical History:
Chronic seasonal allergic rhinitis,
ERICH (generalized anxiety disorder)
Benzodiazepine dependence,
Sinus tachycardia
ADHD (attention deficit hyperactivity disorder),
Essential (primary) hypertension
Pain in extremity,
Ex-smoker (now vapes)
Insomnia
Partial symptomatic epilepsy with complex partial seizures, not intractable, without status epilepticus
Alcohol use disorder
Past Surgical History: Reports None
Social History
Unable to obtain full social history at this time due to: Acuity
Tobacco: Vaping
Alcohol: Chronic Alcoholic
Family History
Family History: Not pertinent
Allergies / Home Medications
Allergies reflects when Allergies were last updated in [facility].
Home Medications with original date entered in [facility]
Allergy/Medication List:
Allergies
Allergy/AdvReac Type Severity Reaction Status Date / Time
levetiracetam (From [facility]) Allergy Severe Verified 09/29/25 07:58
agitation
anger
requiring
physical
restraint
Home Medications
norethindrone 1.5 mg-ethinyl estradiol 30 mcg(21)/iron 75 mg(7) tablet (Sera Fe 1.5/30 (28)) 1 tab PO DAILY Hormonal Agent 03/12/25
biotin 2,500 mcg chewable tablet 2,500 mcg PO DAILY 09/27/25
buspirone 15 mg tablet 15 mg PO TID 09/27/25
cyanocobalamin (vitamin B-12) 1,000 mcg tablet (Vitamin B-12) 1,000 mcg PO DAILY 09/27/25
escitalopram oxalate 20 mg tablet (Lexapro) 20 mg PO DAILY 09/27/25
hydroxyzine HCl 50 mg tablet 50 mg PO QIDPRN PRN anxiety 09/27/25
metoprolol tartrate 50 mg tablet 50 mg PO BID 09/27/25
naltrexone 50 mg tablet 50 mg PO HS 09/27/25
nifedipine 30 mg tablet,extended release 24 hr 30 mg PO DAILY 09/27/25
trazodone 100 mg tablet 100 mg PO HS 09/27/25
dextroamphetamine-amphetamine ER 10 mg 24hr capsule,extend release 2 cap PO DAILY 11/07/25
Review of Systems
-
Unable to obtain full review of systems at this time due to: Acuity
History Source: Patient
Physical Exam
Vital Signs
Vital Signs
Temp Pulse Resp BP Pulse Ox
98.0 F 124 17 155/95 80
11/07/25 13:47 11/07/25 19:00 11/07/25 19:00 11/07/25 19:00 11/07/25 19:00
Physical Exam
General: Well Developed, Well Nourished and Appears in Distress
HEENT: [place] Conjunctivae, Nose Appears Normal and Ears Appear Normal
Respiratory: Clear
Cardiac: S1/S2 and Tachycardia
GI: Soft, Non Tender and Non Distended
Musculoskeletal: No Clubbing, No Cyanosis and No Edema
Skin: Warm and Dry; No Rash
Neuro: Awake and Tremors
Psych: Anxious
Laboratory Results
-
11/07/25 14:02
11/07/25 14:02
Data Reviewed
-
Lab Data: Labs Reviewed by me
Impression/Plan
-
IMPRESSION:
34 woman with alcohol WD, possible DTs, though still intoxicated
PLAN:
1. ETOH WD with high risk of DTs
ETOH WD protocol
Psych consult
IMU admit
Watch electrolytes closely
Once no longer intoxicated, re-eval suicidality
Watch closely in meantime
OK to take PO meds for chronic issues
Full code (does not have capacity to have code conversation)
VCD for DVTp
[2025-11-07] MEDS: ATIVAN 1 MG PO (22:12)
--- NOTE | 2025-11-07 22:15 | PTCARENOTE ---
Received pt from ED. Pt walked from ED stretcher to bed without difficulty. Bathed with CHG cloths, hooked up to monitoring equipment, and admission questions asked. Pt denied suicidal ideation at present.
[2025-11-07] MEDS: REVIA 50 MG PO (22:30)
[2025-11-07] MEDS: BUSPAR 15 MG PO (22:30)
[2025-11-07] MEDS: DESYREL 100 MG PO (22:31)
[2025-11-08] VITALS (12 sets, daily range): BP systolic 137–175; BP diastolic 103–125
[2025-11-08] MEDS: TYLENOL 650 MG PO (00:26)
[2025-11-08] MEDS: THIAMINE INJECTION 200 MG IV ×3 (00:26→15:59)
[2025-11-08] MEDS: NSS 1000 IV ×3 (00:26→11:57)
[2025-11-08] MEDS: ATIVAN 1 MG PO (05:36)
[2025-11-08] MEDS: TIGAN 200 MG IM (05:55)
--- NOTE | 2025-11-08 07:30 | W.PN.HOSP.TC ---
Addendum entered and electronically signed by Flaquito Barragan MD 11/08/25 20:10:
Attending Addendum-
I saw and evaluated the patient. I reviewed the resident�s note and agree with findings and plan as documented in the resident�s note. Sub: Patient complains of tremulous palpitations and sweating. Denies hallucinations or seizure activity. Denies
SI or HI. Full 12 point ROS reviewed and negative except as documented Exam: Vitals reviewed in chart GEN-mild distress heart tachycardic lungs CTA B/L abd soft NT ND LE no edema Neuro-AAO x 3, resting and intention tremor appreciated
Plan:
# Acute ETOH W/D secondary to AUD
- MSAS elevated
- start standing phenobarb with taper/dc ativan prn dosing as it is less effective
- cont folate and high dose thiamine
- counselled re quitting, c/s BCARES
- would benefit from IP rehab placement
# Hyponatremia- cont IVF repeat BMP in am
# Bicytopenia- from etoh abuse- repeatt CBC In am
# Tob abuse- uses vapes- advised to quit, start krista patch
# HTN- cont nifedipine and metoprolol
# Hypokalemia- replete repeat BMP sherri m
# Transaminitis- secondary to etoh hepatitis cont IVF repeat LFT in am
# Depression/Anxiety- cont buspar lexapro and trazodone
# Prolonged QTc- >500ms, repeat EKG in am avoid QTc prolonging meds as able replete electrolytes
DVTp-SCDs
Code-FULL
Dispo- eventual DC to IP rehab when able
Time spent coordinating care, review of plan of care with resident, personally reviewed records in EMR, med rec, consults, notes, labs, radiology, d/w nursing and CM updated� 51 mins
Original Note:
Today's Communication/Plan
-
Patient switched to phenobarbital downward taper based on MSAS
1mg IV ativan prn q2h added for breakthrough agitation
Initiated trimethobenzamide 200 mg IV every 6 hours as needed for nausea and vomiting
Assessment / Plan
Assessment / Plan
HPI:
Patient is a 34-year-old female who presented to the emergency department via EMS after being found highly intoxicated in her home with several cans of beer and vape cartridges in her home. She stated that she had a history of suicidal
ideation/intent to the officer but at that time there was not enough information to file a 302. Breathalyzer at the scene yielded a 0.323 result. Upon presentation to the emergency department the patient was not expressing suicidal ideation but
was found to have an alcohol level of 431 and was acutely intoxicated. Of note she has had history of alcohol withdrawal in the past. She was found to have a CIWA score of 15 in the emergency department and received 2 mg IV Ativan and 4 mg IV
ondansetron and was admitted for acute alcohol withdrawal. Patient also received IV thiamine injection and oral cyanocobalamin. Patient received additional doses of Ativan in order to control withdrawal symptoms. Patient received more doses of
lorazepam totaling 4 additional milligrams on 11/07/2025. Her CIWA score fluctuated throughout the evening between 2 and up to 9.
Assessment/Plan:
- Acute alcohol withdrawal: Unresolved
Patient presented with obvious physical signs of acute alcohol withdrawal. Patient presented with high risk of DTs. CIWA score of 15 on presentation.
Patient received a total of 6 mg IV Ativan to control alcohol withdrawal symptoms on 11/07/25
Following CBC and CMP
AST 223, ALT 117, alk phos 154, lipase 289
PT 13.7, INR 1.03
MSAS 9 at 7AM on 11/08/25 prior to 1mg IV Ativan. Patient received 2 mg total since 7AM.
Patient LFTs and coagulation studies acceptable for starting phenobarbital taper protocol.
Patient switched to phenobarbital downward taper based on MSAS
1mg IV ativan prn q2h added for breakthrough agitation
-Nausea: Unresolved
Patient received 4 mg ondansetron in the emergency department
Qtc currently 541 - QTc prolongation contraindication to zofran
Initiated trimethobenzamide 200 mg IV every 6 hours as needed for nausea and vomiting
-Suicidal Ideation:
Patient endorsed suicidal ideation prior to presentation as per EMS report.
Patient endorses poor compliance with Lexapro, unclear if taking daily medication
Psychiatry consulted for major depression with suicidal ideation
-Alcohol dependence: Unresolved
Patient would benefit from alcohol abstinence program.
Will ask immigration case worker to connect patient with resources for overcoming alcohol dependence - inpatient vs outpatient rehab
CODE STATUS: FULL CODE
DVT Prophylaxis: SCDs
Anticipated Discharge: 24 - 48 hours
Subjective/Interval History
-
Date of Service: November 08, 2025
Met with patient at the bedside. She is visibly tremulous, flushed, and uncomfortable in bed. She has mild nausea with no vomiting. Moderate tremors with patient's arm extended. She has beads of obvious sweat on her forehead. Moderate anxiety
and agitation. She has very mild itching. She does not endorse any auditory or visual disturbances. She does not note any headache.
Patient's presentation remains unclear as she states that her reason for presentation is centered around her right foot pain. She states that she takes large quantities of alcohol daily and did not specify the quantity in order to self-medicate and
treat the pain. Initially the patient did not state that there was any suicidal ideation connected with her presentation. After discussing her right foot pain and evaluating her foot I continued with further questioning and asked if there was
sadness or depression component that may be a part of her presentation. At that point the patient stated that she had been contending with major depression for many months and had been taking Lexapro since May which was effective in managing her
depression.
Patient had been taking Lexapro for many months and her depression was in remission so she states that she decided to discontinue the medication. Unfortunately, her feelings of depression returned and she states that she attempted to resume the
medication and is uncertain for how long she had resumed taking it before her presentation to the emergency department for this admission. She had been drinking alcohol throughout that time.
Objective Data
-
Labs:
Labs
11/08/25 09:09
11/08/25 10:13
Vital Signs:
Vital Signs
Temp Pulse Resp BP Pulse Ox
98.1 F 109 14 166/110 97
11/08/25 08:13 11/08/25 07:49 11/08/25 06:40 11/08/25 07:49 11/08/25 05:00
I&O
11/07/25 11/08/25 11/09/25
06:59 06:59 06:59
Intake Total 2760 / 2760
Balance 2760 / 2760
Review of Systems
-
History Source: Patient
Constitutional: Reports Fatigue and Chills
Respiratory: Reports No Symptoms
Cardiac: Reports No Symptoms
Abdomen/GI: Reports Nausea
Breast: Reports No Symptoms
Genitourinary: Reports No Symptoms
Musculoskeletal: Reports Muscle Pain (Right foot pain localized to ankle with normal ROM)
Skin: Reports Itching and Other (flushed)
Neuro: Reports Tremors
Psych: Reports Depressed and Anxious
Physical Exam
-
General: Well Developed, Well Nourished, Appears in Distress, Chills, Sweats and Conversant
HEENT: Normocephalic, Atraumatic, Moist Mucous Membranes, No Ptosis, Ears Appear Normal and Neck Non Tender
Respiratory: Clear to Auscultation and Non Labored Respirations; Negative Wheezes, Rales, Rhonchi or Crackles
Cardiac: Regular Rhythm and S1/S2; Negative Irregular Rhythm, Murmur, Rub, Calf Tenderness or JVD
Breast: Deferred by me
GI: Soft, Nontender, Nondistended and Normal Bowel Sounds
Musculoskeletal: No Clubbing, No Cyanosis and No Edema
Skin: Warm, Dry and Normal Turgor; Negative Ulcers, Lesions or Jaundice
Neuro: Awake, Alert and Oriented
Psych: Calm, Depressed and Anxious
[2025-11-08] MEDS: ATIVAN 1 MG IV ×8 (07:45→20:19)
[2025-11-08] MEDS: VITAMIN B-12 1000 MCG PO (07:47)
[2025-11-08] MEDS: LEXAPRO 20 MG PO (07:47)
[2025-11-08] MEDS: PROCARDIA XL (EXTENDED RELEASE) 30 MG PO (07:47)
[2025-11-08] MEDS: BUSPAR 15 MG PO ×3 (07:48→21:36)
[2025-11-08] MEDS: FOLVITE 1 MG PO (07:49)
[2025-11-08] MEDS: LOPRESSOR 50 MG PO ×2 (07:49→20:20)
[2025-11-08] MEDS: NICODERM TRANSDERMAL 21 MG TRANSDERM (08:46)
[2025-11-08 09:27] LABS: Hematocrit 35.5 % (37.0-47.0); Hemoglobin 12.3 g/dL (12.0-16.0); Mean Corp Hgb Conc. 34.6 g/dL (33.0-37.0); Mean Corpuscular Volume 92.9 fL (81.0-99.0); Red Cell Dist. Width 15.9 % (11.5-14.5)
[2025-11-08] MEDS: NSS (PRESERVATIVE FREE) 0.5 ML IV ×3 (09:46→15:59)
[2025-11-08 10:09] LABS: TSH 2.13 uIU/ml (0.47-4.68)
[2025-11-08 10:37] LABS: INR 1.03; PT 13.7 Sec (11.4-14.6)
[2025-11-08 10:49] LABS: ALT (SGPT) 117 U/L (0-35); AST (SGOT) 223 U/L (14-36); Albumin 3.9 g/dl (3.5-5.0); Alkaline Phosphatase 154 U/L (38-126); Blood Urea Nitrogen 8 mg/dl (7-17); Calcium 8.5 mg/dl (8.4-10.2); Carbon Dioxide 24 mmol/L (22-30); Chloride 93 mmol/L (98-107); Estimated Creatinine Clearance 92 ml/min; Glucose 132 mg/dl (70-99); Lipase 289 U/L (23-300); Magnesium 1.6 mg/dl (1.6-2.3); Potassium 3.4 mmol/L (3.5-5.1); Sodium 129 mmol/L (135-145); Total Protein 6.1 g/dl (6.3-8.2); eGFR > 60.00
[2025-11-08] MEDS: PHENOBARBITAL 104 MG IV (11:57)
[2025-11-08] MEDS: NSS (PRESERVATIVE FREE) 10 ML IV (13:43)
--- NOTE | 2025-11-08 15:34 | PTCARENOTE ---
Rec'd pt this AM. MSAS 8-10. Medical team aware. pt somewhat calmer at this time but remains with some confusion and restlessness.
--- NOTE | 2025-11-08 17:59 | CM ---
I.A: Completed By AMANDA Ang.
Patient lives alone (has 2 children- seems they do not live with her- 6 and 8 years old), in a [facility] with 3 STI, and 14 STI. DME: Crutches- had completed Outpatient in the past.
PCP: Dr. Kyrie Aguirre
Zamudio: [facility].
CM consulted for alcohol w/d, patient was a [facility] for 30 days Inpatient, is interested in this again or something similar, just not long due to xmas so Parth from [facility] will visit patient tomorrow. PLAN: Inpatient vs. Outpatient D&A.
[2025-11-08] MEDS: NSS (PRESERVATIVE FREE) 1 ML IV (18:02)
--- NOTE | 2025-11-08 18:30 | PTCARENOTE ---
Pt's MSAS veried from 5-10 throughout shift, improved with meds. confused at times, able to be re-oriented.
[2025-11-08] MEDS: REVIA 50 MG PO (21:36)
[2025-11-08] MEDS: DESYREL 100 MG PO (21:36)
[2025-11-08] MEDS: PHENOBARBITAL 97.5 MG IV (21:37)
--- NOTE | 2025-11-08 22:54 | CS.PSYCHR ---
Consult Summary - Psychiatry
-
pt seen this morning in consultation for alcohol use disorder and concern about suicidality
34 yo woman known to our service brought to ED by police, who had been called by her former partner/father of her children. He had found her very intoxicated, called EMS, then police involved due to refusal to come to ED. Mentioned suicidal
ideation.
Alcohol level in ED 431. In February had been assessed in [facility] situation, sent to [facility]. States she has been getting 'alumni network' treatment since then.
Pt difficult to interview in many ways. When I initally tried to meet with her pt inidcated that she was on the phone and it was important. I returned later and pt insisted room be kept dark (agreed to let me raise shade to let in some light) Became
upset when I asked about her situation with partner and their children, insists that it would just get her upset.
Ultimately stated 'we'll have to do this some other time' and declined to continue interview.
Will try again tomorrow. Denies suicidality at present.
[2025-11-09] VITALS (8 sets, daily range): BP systolic 142–163; BP diastolic 100–112
[2025-11-09] MEDS: THIAMINE INJECTION 200 MG IV ×3 (00:37→16:05)
[2025-11-09] MEDS: ATIVAN 1 MG IV ×6 (00:40→18:34)
[2025-11-09] MEDS: NSS (PRESERVATIVE FREE) 0.5 ML IV ×5 (00:40→18:34)
--- NOTE | 2025-11-09 01:23 | PTCARENOTE ---
Pt continues on MSAS scarring 5-7, prn medication given per order. Pt AAox3 but confused at times. Pt found to have scd machine in hands trying to 'figure it out' and 'put them in'. Pt easily redirected. scd's removed for safety due to cords being
intwined with Pt arms and her lifting them up. pt using BSCx1, gait very unsteady at this time. Assessment care and vitals as charted. Bed in lowest position alarm magician/illusionist boswell within reach.
--- NOTE | 2025-11-09 01:36 | PTCARENOTE ---
Pt continues on MSAS scoring 5-7, prn medication given per order. Pt AAox3 but confused at times. Pt found to have scd machine in hands trying to 'figure it out' and 'put them in'. Pt easily redirected. scd's removed for safety due to cords being
intwined with Pt arms and her lifting them up. pt using BSCx1, gait very unsteady at this time. Assessment care and vitals as charted. Bed in lowest position alarm promotion writer boswell within reach.
[2025-11-09] MEDS: NSS IV (02:27)
[2025-11-09 05:14] LABS: ALT (SGPT) 100 U/L (0-35); AST (SGOT) 146 U/L (14-36); Albumin 3.7 g/dl (3.5-5.0); Alkaline Phosphatase 136 U/L (38-126); Blood Urea Nitrogen 3 mg/dl (7-17); Calcium 9.1 mg/dl (8.4-10.2); Carbon Dioxide 28 mmol/L (22-30); Chloride 90 mmol/L (98-107); Estimated Creatinine Clearance 107 ml/min; Glucose 79 mg/dl (70-99); Potassium 3.1 mmol/L (3.5-5.1); Sodium 129 mmol/L (135-145); Total Protein 6.1 g/dl (6.3-8.2); eGFR > 60.00
--- NOTE | 2025-11-09 05:48 | PTCARENOTE ---
Addendum entered by Neda Meek RN 11/09/25 06:32:
Pt labs reported to POLYMER ENGINEER. Plt 65, k 3.1. orders placed
Original Note:
Pt appearing to get rest over night. respirations even unlabored at this time. Pt BP's remaining high dys in 100's. Night BLOCKER AUTOMATIC made aware TT earlier in evening. Call boswell within reach, bed in lowest position and alarm on.
[2025-11-09 05:53] LABS: Hematocrit 31.7 % (37.0-47.0); Hemoglobin 11.2 g/dL (12.0-16.0); Mean Corp Hgb Conc. 35.3 g/dL (33.0-37.0); Mean Corpuscular Volume 90.8 fL (81.0-99.0); Platelet Count 61 10^3/uL (130-400); Red Cell Dist. Width 15.3 % (11.5-14.5)
[2025-11-09 06:59] LABS: Magnesium 1.6 mg/dl (1.6-2.3)
--- NOTE | 2025-11-09 07:13 | W.PN.HOSP.TC ---
Addendum entered and electronically signed by Flaquito Barragan MD 11/09/25 20:59:
Attending Addendum-
I saw and evaluated the patient. I reviewed the resident�s note and agree with findings and plan as documented in the resident�s note. Sub: Patient feels less tremulous after initiation of phenobarbital. Denies hallucinations or seizure activity.
Denies SI or HI. Full 12 point ROS reviewed and negative except as documented Exam: Vitals reviewed in chart GEN-NAD heart RRR no MRG lungs CTA B/L abd soft NT ND LE no edema Neuro-AAO x 3, tremor appreciated
Plan:
# Acute ETOH W/D secondary to AUD
- MSAS improving 4-6
- cont phenobarb with taper
- cont folate and high dose thiamine
- counselled re quitting, c/s BCARES
- would benefit from IP rehab placement but patient not reluctant and is debating doing IOP.
- transfer to tele
# Hyponatremia- stable, cont IVF repeat BMP in am
# Pancytopenia- from etoh abuse- repeat CBC In am
# Tob abuse- uses vapes- advised to quit
# HTN- uncontrolled and reactive due to W/D, cont nifedipine and metoprolol
# Hypokalemia- replete repeat BMP in am, check mag
# Transaminitis- secondary to etoh hepatitis improving, cont IVF repeat LFT in am
# Depression/Anxiety- cont buspar lexapro and trazodone
# Prolonged QTc- now @ 500ms, repeat EKG reviewed and improved avoid QTc prolonging meds as able, replete electrolytes aggressively
DVTp-SCDs
Code-FULL
Dispo- eventual DC to IP rehab vs home and IOP when able
Time spent coordinating care, review of plan of care with resident, personally reviewed records in EMR, med rec, consults, notes, labs, radiology, d/w nursing and CM updated� 52 mins
Original Note:
Today's Communication/Plan
-
Continue phenobarb taper
Repeat electrolytes as needed
Continue to monitor QTc
Check hepatitis panel
Transfer to telemetry
Assessment / Plan
Assessment / Plan
Impression:
Patient is a 34-year-old female, admitted with acute alcohol withdrawal in setting of alcohol use disorder.Reports of suicidal ideation, prior to admission as per EMS report, currently denies any suicidal ideation. Poor compliance to Lexapro.
MSAS(4-6)
Rass(0-/+1)
Assessment/Plan:
- Acute alcohol withdrawal: Unresolved
Patient presented with obvious physical signs of acute alcohol withdrawal. Patient presented with high risk of DTs. CIWA score of 15 on presentation.
Last dose of Ativan around 4:30 AM on 11/09/2025
Currently on phenobarbital taper protocol
Continue MSAS and RASS scale
-Nausea: Unresolved
Qtc currently 500 - QTc still prolonged- contraindication to zofran
Initiated trimethobenzamide 200 mg IV every 6 hours as needed for nausea and vomiting
-Transaminitis
Most likely secondary to alcohol use
trending down-monitor
-Bicytopenia
Secondary to alcohol use
monitor
-Suicidal Ideation:
Patient endorsed suicidal ideation prior to presentation as per EMS report.
Patient endorses poor compliance with Lexapro, unclear if taking daily medication
Psychiatry consulted for major depression with suicidal ideation-recs pending
-Hypokalemia and hypomagnesemia
Replete as needed
Qtc monitoring
-Alcohol dependence: Unresolved
Patient would benefit from alcohol abstinence program.
sales and marketing manager to connect patient with resources for overcoming alcohol dependence - inpatient vs outpatient rehab
-Essential Hypertension
continue to monitor
continue home medications as able
CODE STATUS: FULL CODE
DVT Prophylaxis: SCDs
Anticipated Discharge: 24 - 48 hours
Subjective/Interval History
-
Date of Service: November 09, 2025
Patient seen and examined at bedside. She complains of tremulousness and nausea but denies any chest pain, palpitations, hallucinations, seizures delusions, suicidal or homicidal ideations.
Review of systems-sleep disturbances due to environmental issues, tremors both at rest and intentional
Objective Data
-
Labs:
Laboratory Results
11/09/25
04:31
WBC 3.1 L
Hgb 11.2 L
Hct 31.7 L
Plt Count 61 L D
Sodium 129 L
Potassium 3.1 L
Chloride 90 L
Carbon Dioxide 28
BUN 3 L
Creatinine 0.6
Glucose 79
Calcium 9.1
Total Bilirubin 0.8
AST 146 H
ALT 100 H
Alkaline Phosphatase 136 H
Vital Signs:
Vital Signs
Temp Pulse Resp BP Pulse Ox
98.4 F 110 18 147/110 98
11/09/25 03:50 11/09/25 04:32 11/09/25 04:32 11/09/25 04:32 11/08/25 22:07
I&O
11/08/25 11/09/25 11/10/25
06:59 06:59 06:59
Intake Total 2760 / 2760 3080 / 3080
Output Total 800 / 800
Balance 2760 / 2760 2280 / 2280
Review of Systems
-
EENT: Reports No Symptoms Reported
Respiratory: Reports No Symptoms
Cardiac: Reports No Symptoms
Abdomen/GI: Reports Nausea
Breast: Reports No Symptoms
Genitourinary: Reports No Symptoms
Musculoskeletal: Reports Myalgias
Neuro: Reports Tremors
Endocrine: Reports No Symptoms
Hematologic / Lymphatic: Reports No Symptoms
Allergy / Immunology: Reports No Symptoms
Physical Exam
-
General: Well Developed and No Apparent Distress
HEENT: Normocephalic, Atraumatic and Moist Mucous Membranes
Respiratory: Clear to Auscultation; Negative Rales, Rhonchi or Crackles
Cardiac: Regular Rhythm, S1/S2 and Tachycardic
GI: Soft, Nontender, Nondistended and Normal Bowel Sounds
Musculoskeletal: No Clubbing, No Cyanosis and No Edema
Skin: Warm and Dry
Neuro: Awake, AO x 3 and No Motor Deficits
Psych: Calm
[2025-11-09] MEDS: KCL 40 MEQ PO ×2 (08:10→13:54)
[2025-11-09] MEDS: BUSPAR 15 MG PO ×3 (08:11→21:25)
[2025-11-09] MEDS: LEXAPRO 20 MG PO (08:12)
[2025-11-09] MEDS: FOLVITE 1 MG PO (08:12)
[2025-11-09] MEDS: LOPRESSOR 50 MG PO ×2 (08:12→21:25)
[2025-11-09] MEDS: PHENOBARBITAL 97.5 MG IV ×3 (08:13→21:27)
[2025-11-09] MEDS: NICODERM TRANSDERMAL 21 MG TRANSDERM (08:13)
[2025-11-09] MEDS: PROCARDIA XL (EXTENDED RELEASE) 30 MG PO (08:15)
[2025-11-09] MEDS: VITAMIN B-12 1000 MCG PO (08:17)
[2025-11-09] MEDS: NSS (PRESERVATIVE FREE) 0.25 ML IV (10:06)
[2025-11-09 12:33] LABS: Hepatitis B Surface Antigen Negative (Negative)
[2025-11-09] MEDS: TIGAN 200 MG IM (13:02)
[2025-11-09 13:06] LABS: Blood Urea Nitrogen 2 mg/dl (7-17); Calcium 9.5 mg/dl (8.4-10.2); Carbon Dioxide 29 mmol/L (22-30); Chloride 90 mmol/L (98-107); Estimated Creatinine Clearance 92 ml/min; Glucose 123 mg/dl (70-99); Magnesium 1.4 mg/dl (1.6-2.3); Potassium 3.7 mmol/L (3.5-5.1); Sodium 126 mmol/L (135-145); eGFR > 60.00
[2025-11-09] MEDS: MAGNESIUM SULFATE 50 IV (13:55)
--- NOTE | 2025-11-09 15:31 | PTCARENOTE ---
Patient AAO X 3. Able to make needs known. No signs of distress noted. MSAS protocol in place with medication provided as needed. Tremulous and unsteady with gait. Educated on using call boswell for assist. Bed alarm on. Call boswell in place.
[2025-11-09 15:51] LABS: Hepatitis A Antibody, Total Negative (Negative); Hepatitis C Antibody Negative (Negative)
--- NOTE | 2025-11-09 19:02 | PTCARENOTE ---
Patient transferred to 4W room 434-1 via wheelchair. All belongings sent with patient. 4W RN in room receiving patient.
[2025-11-09] MEDS: DESYREL 100 MG PO (21:25)
[2025-11-09] MEDS: REVIA 50 MG PO (21:25)
--- NOTE | 2025-11-09 21:59 | W.PN.UPDATE ---
Update Note
Progress Note Update
pt seen for completion of assessment. again tries to have me come back, complains of abdominal distress. able to tolerate enough interview to flesh out the evnets of her admission. states her children's father had them and brought them to her
sister's house to drop them off. Went to patient's house and found her passed out. Called 911, pt declined to go with EMS, then police called and pt brought here
States she is still feeling a bit too ill for rehab but hopes to get there soon. Apologizes for being difficult
[2025-11-10] VITALS (7 sets, daily range): BP systolic 143–172; BP diastolic 99–117
[2025-11-10] MEDS: THIAMINE INJECTION 200 MG IV ×3 (00:21→16:19)
[2025-11-10] MEDS: ATIVAN 1 MG IV ×2 (03:15→13:32)
[2025-11-10] MEDS: NSS (PRESERVATIVE FREE) 0.5 ML IV ×2 (03:15→13:33)
[2025-11-10 07:40] LABS: Hematocrit 31.9 % (37.0-47.0); Hemoglobin 11.2 g/dL (12.0-16.0); Mean Corp Hgb Conc. 35.1 g/dL (33.0-37.0); Mean Corpuscular Volume 90.9 fL (81.0-99.0); Nucleated Red Blood Cells % 0 %; Platelet Count 69 10^3/uL (130-400); Red Cell Dist. Width 15.1 % (11.5-14.5)
[2025-11-10] MEDS: PHENOBARBITAL 97.5 MG IV ×2 (07:56→16:19)
[2025-11-10] MEDS: BUSPAR 15 MG PO ×3 (07:57→21:42)
[2025-11-10] MEDS: FOLVITE 1 MG PO (07:57)
[2025-11-10] MEDS: LEXAPRO 20 MG PO (07:57)
[2025-11-10] MEDS: LOPRESSOR 50 MG PO ×2 (08:00→20:41)
[2025-11-10] MEDS: PROCARDIA XL (EXTENDED RELEASE) 30 MG PO (08:00)
[2025-11-10] MEDS: NICODERM TRANSDERMAL 21 MG TRANSDERM (08:01)
[2025-11-10] MEDS: VITAMIN B-12 1000 MCG PO (08:01)
--- NOTE | 2025-11-10 08:50 | CM ---
OTONIEL Alba from [facility], he will follow up wit patient today and call this CM.
[2025-11-10 08:58] LABS: ALT (SGPT) 104 U/L (0-35); AST (SGOT) 146 U/L (14-36); Albumin 3.9 g/dl (3.5-5.0); Alkaline Phosphatase 138 U/L (38-126); Blood Urea Nitrogen 2 mg/dl (7-17); Calcium 9.4 mg/dl (8.4-10.2); Carbon Dioxide 28 mmol/L (22-30); Chloride 90 mmol/L (98-107); Estimated Creatinine Clearance 80 ml/min; Glucose 99 mg/dl (70-99); Magnesium 1.8 mg/dl (1.6-2.3); Potassium 3.5 mmol/L (3.5-5.1); Sodium 125 mmol/L (135-145); Total Protein 6.1 g/dl (6.3-8.2); eGFR > 60.00
[2025-11-10] MEDS: MAGNESIUM SULFATE 102 GRAMS IV (11:46)
[2025-11-10] MEDS: KCL 40 MEQ PO (11:47)
--- NOTE | 2025-11-10 13:46 | W.PN.HOSP.TC ---
Addendum entered and electronically signed by Flaquito Barragan MD 11/10/25 21:04:
Attending Addendum-
I saw and evaluated the patient. I reviewed the resident�s note and agree with findings and plan as documented in the resident�s note. Sub: 'i feel horrible today' complains of tremors N/V and poor appetite. Denies hallucinations or seizure
activity. Denies SI or HI. Full 12 point ROS reviewed and negative except as documented Exam: Vitals reviewed in chart GEN-NAD heart RRR no MRG lungs CTA B/L abd soft NT ND LE no edema Neuro-AAO x 3, tremor appreciated
Plan:
# Acute ETOH W/D secondary to AUD
- MSAS improving 1-3
- cont phenobarb with taper
- add clonidine for sxs control
- cont folate and high dose thiamine
- counselled re quitting, [facility] on board
- would benefit from IP rehab placement but patient is reluctant, support offered
# Hyponatremia- worsening, restart IVF check urine studies and serum osm
# Hypomagnesemia-resolved s/p repletion
# Pancytopenia- from etoh abuse- repeat CBC In am
# Tob abuse- uses vapes- advised to quit
# HTN- uncontrolled and partially reactive due to W/D, cont nifedipine and increase metoprolol
# Hypokalemia- resolved s/p replete, repeat BMP in am
# Transaminitis- secondary to etoh hepatitis stable, restart IVF, repeat LFT in am, r/o acute viral hep
# Depression/Anxiety- cont buspar lexapro and trazodone
# Prolonged QTc- repeat EKG reviewed and now WNL avoid QTc prolonging meds as able, replete electrolytes aggressively
DVTp-SCDs
Code-FULL
Dispo- DC to home/IOP in am, patient refusing IP rehab
Original Note:
Today's Communication/Plan
-
Continue phenobarb taper
PT/OT
Most likely would go home on phenobarbital taper along with information about resources to follow-up on outpatient basis
Check urine osmolality, urine sodium, serum osmolality for hyponatremia
Assessment / Plan
Assessment / Plan
Impression:
Patient is a 34-year-old female, admitted with acute alcohol withdrawal in setting of alcohol use disorder.Reports of suicidal ideation, prior to admission as per EMS report, currently denies any suicidal ideation. Poor compliance to Lexapro.
MSAS(1-3)
Rass(0-/+1)
Assessment/Plan:
- Acute alcohol withdrawal: Unresolved
Patient presented with obvious physical signs of acute alcohol withdrawal. Patient presented with high risk of DTs. CIWA score of 15 on presentation.
Currently on phenobarbital taper protocol
As per the case operator, patient met [facility] and refusing any inpatient services for now and wants to do home with resources and [facility] outpatient follow-up
Continue MSAS and RASS scale
-Nausea: Unresolved
Qtc currently 454
Initiated trimethobenzamide 200 mg IV every 6 hours as needed for nausea and vomiting
-Hyponatremia
Most likely secondary to alcohol use and poor nutrition
Check urine osmolality and urine sodium
Check serum osmolarity
-Transaminitis
Most likely secondary to alcohol use
trending down-monitor
-Bicytopenia
Secondary to alcohol use
monitor
-Suicidal Ideation:
Patient endorsed suicidal ideation prior to presentation as per EMS report.
Patient endorses poor compliance with Lexapro, unclear if taking daily medication
Psychiatry consulted for major depression with suicidal ideation-recs pending
-Hypokalemia and hypomagnesemia
Replete as needed
Qtc monitoring
-Alcohol dependence: Unresolved
Patient would benefit from alcohol abstinence program.
refusing any inpatient services for now and wants to do home with resources and [facility]
- Right ankle pain
secondary to ankle sprain about 2 weeks ago
PT/OT
Use Tylenol as needed, and conservative measures
-Essential Hypertension
continue to monitor
continue home medications as able
CODE STATUS: FULL CODE
DVT Prophylaxis: SCDs
Anticipated Discharge: 24 - 48 hours
Subjective/Interval History
-
Date of Service: November 10, 2025
Patient seen and examined at bedside
Reports some nausea overnight, reports improvement in tremulousness
Denies any chest pain palpitations, hallucinations, seizures, delusions, suicidal or homicidal ideations
Reports some pain in her right ankle secondary to a sprain that she had a couple of weeks ago.
Objective Data
-
Labs:
Laboratory Results
11/10/25
07:15
WBC 3.5 L
Hgb 11.2 L
Hct 31.9 L
Plt Count 69 L
Sodium 125 L
Potassium 3.5
Chloride 90 L
Carbon Dioxide 28
BUN 2 L
Creatinine 0.8
Glucose 99
Calcium 9.4
Total Bilirubin 0.5
AST 146 H
ALT 104 H
Alkaline Phosphatase 138 H
Vital Signs:
Vital Signs
Temp Pulse Resp BP Pulse Ox
98.0 F 101 18 158/99 97
11/10/25 13:30 11/10/25 13:30 11/10/25 13:30 11/10/25 13:30 11/10/25 13:30
I&O
11/09/25 11/10/25 11/11/25
06:59 06:59 06:59
Intake Total 3080 / 3080
Output Total 800 / 800
Balance 2280 / 2280
Review of Systems
-
Constitutional: Reports No Symptoms
Respiratory: Reports No Symptoms
Cardiac: Reports No Symptoms
Abdomen/GI: Reports Nausea
Breast: Reports No Symptoms
Musculoskeletal: Reports No Symptoms
Skin: Reports No Symptoms
Neuro: Reports No Symptoms
Endocrine: Reports No Symptoms
Hematologic / Lymphatic: Reports No Symptoms
Allergy / Immunology: Reports No Symptoms
Physical Exam
-
General: Well Developed, No Apparent Distress and Comfortable
HEENT: Normocephalic, Atraumatic and Moist Mucous Membranes
Respiratory: Clear to Auscultation; Negative Wheezes, Rales or Rhonchi
Cardiac: Regular Rhythm and S1/S2; Negative Murmur or Rub
GI: Soft, Nontender, Nondistended and Normal Bowel Sounds
Musculoskeletal: No Clubbing, No Cyanosis and No Edema
Neuro: Awake and Alert
Psych: Calm
--- NOTE | 2025-11-10 15:38 | W.PN.UPDATE ---
Update Note
Progress Note Update
reviewed chart spoke with nursing. the patient was sleeping. i did attempt to wake her but she told me she did not want to speak to me today and could we speak tomorrow. will return in the am
[2025-11-10] MEDS: CATAPRES 0.1 MG PO (20:41)
[2025-11-10] MEDS: VITAMIN B1 100 MG PO (20:41)
[2025-11-10] MEDS: REVIA 50 MG PO (21:42)
[2025-11-10] MEDS: DESYREL 100 MG PO (21:42)
[2025-11-10] MEDS: LUMINAL 64.8 MG PO (21:42)
[2025-11-10] MEDS: NSS 1000 IV (21:47)
[2025-11-10] MEDS: NICORETTE 2 MG PO (22:04)
[2025-11-11] VITALS (9 sets, daily range): BP systolic 121–166; BP diastolic 100–112; PULSE 84
[2025-11-11] MEDS: NICORETTE 2 MG PO ×8 (00:20→22:22)
[2025-11-11] MEDS: NSS 1000 IV ×2 (07:11→17:11)
[2025-11-11] MEDS: LEXAPRO 20 MG PO (07:55)
[2025-11-11] MEDS: FOLVITE 1 MG PO (07:55)
[2025-11-11] MEDS: CATAPRES 0.1 MG PO (07:55)
[2025-11-11] MEDS: BUSPAR 15 MG PO ×3 (07:55→22:17)
[2025-11-11] MEDS: LUMINAL 64.8 MG PO ×3 (07:56→22:18)
[2025-11-11] MEDS: NICODERM TRANSDERMAL 21 MG TRANSDERM (07:56)
[2025-11-11] MEDS: LOPRESSOR 100 MG PO ×2 (07:56→20:20)
[2025-11-11] MEDS: PROCARDIA XL (EXTENDED RELEASE) 30 MG PO ×2 (07:57→21:06)
[2025-11-11] MEDS: VITAMIN B1 100 MG PO ×2 (07:57→20:21)
[2025-11-11] MEDS: VITAMIN B-12 1000 MCG PO (07:57)
--- NOTE | 2025-11-11 08:50 | W.PN.HOSP.TC ---
Addendum entered and electronically signed by Flaquito Barragan MD 11/11/25 20:20:
Attending Addendum-
I saw and evaluated the patient. I reviewed the resident�s note and agree with findings and plan as documented in the resident�s note. Sub: continues to feel nauseous and tremulous. poor appetite. no complaints of bleeding. Denies hallucinations
or seizure activity. Denies SI or HI. Full 12 point ROS reviewed and negative except as documented Exam: Vitals reviewed in chart GEN-NAD heart RRR no MRG lungs CTA B/L abd soft NT ND LE no edema Neuro-AAO x 3, tremor appreciated
Plan:
# Acute ETOH W/D secondary to AUD
- MSAS mildly worse 3-4
- cont phenobarb with taper
- add clonidine prn for sxs control
- cont folate and high dose thiamine
- counselled re quitting, [facility] on board
- patient now amenable to IP rehab
# Hyponatremia- improving, cont IVF
# Hypomagnesemia-resolved s/p repletion
# Pancytopenia- from etoh abuse- repeat CBC In am worsening thrombocytopenia, from BM suppression no indication for tx CTM
# Tob abuse- uses vapes- advised to quit
# HTN- uncontrolled and partially reactive due to W/D, increase nifedipine XL and continue increased metoprolol
# Hypokalemia- resolved s/p replete, repeat BMP in am
# Transaminitis- secondary to etoh hepatitis-improving,cont IVF, repeat LFT in am, r/o acute viral hep-neg
# Depression/Anxiety- cont buspar lexapro and trazodone
# Prolonged QTc- repeat EKG reviewed avoid QTc prolonging meds as able, replete electrolytes aggressively
DVTp-SCDs
Code-FULL
Dispo- DC to IP rehab in AM wants to go to [place]
Time spent coordinating care, review of plan of care with resident, personally reviewed records in EMR, med rec, consults, notes, labs, radiology, d/w nursing and psych� 51 mins
Original Note:
Today's Communication/Plan
-
Continue Phenobarb taper
Continue MSAS and RASS
Continue to monitor electrolytes and replete as needed
Qtc monitoring
Type and C/M
Monitor platelet count
Assessment / Plan
Assessment / Plan
Impression:
Patient is a 34-year-old female, admitted with acute alcohol withdrawal in setting of alcohol use disorder.Reports of suicidal ideation, prior to admission as per EMS report, currently denies any suicidal ideation. Poor compliance to Lexapro.
MSAS(1-3)
Rass(0-/+1)
Assessment/Plan:
- Acute alcohol withdrawal: Unresolved
Patient presented with obvious physical signs of acute alcohol withdrawal. Patient presented with high risk of DTs. CIWA score of 15 on presentation.
Currently on phenobarbital taper protocol
As per the foster care case manager, patient met [facility] and refusing any inpatient services for now and wants to do home with resources and [facility] outpatient follow-up
Continue MSAS and RASS scale
MSAS(3-4),RASS(0+/-1)
-Nausea: Unresolved
Qtc currently 490
Initiated trimethobenzamide 200 mg IV every 6 hours as needed for nausea and vomiting
-Hyponatremia
Most likely secondary to alcohol use and poor nutrition
urine osmolality and urine sodium low
serum osmolarity low
Most likely secondary to alcohol use,continue IVF and monitor
-Transaminitis
Most likely secondary to alcohol use
trending down-monitor
-Bicytopenia
Secondary to alcohol use
monitor
Severe decrease in platelet count(29K)
Type and cross match,transfuse if less than 20K or in case of obvious bleeding
-Suicidal Ideation:
Patient endorsed suicidal ideation prior to presentation as per EMS report.
Patient endorses poor compliance with Lexapro, unclear if taking daily medication
Psychiatry consulted for major depression with suicidal ideation-recs pending
-Hypokalemia and hypomagnesemia
Replete as needed
Qtc monitoring
Follow CMP
-Alcohol dependence: Unresolved
Patient would benefit from alcohol abstinence program.
refusing any inpatient services for now and wants to do home with resources and [facility] outpatient follow-up
- Right ankle pain
secondary to ankle sprain about 2 weeks ago
PT/OT
Use Tylenol as needed, and conservative measures
Use walker for ambulation
-Essential Hypertension
continue to monitor
continue home medications as able
CODE STATUS: FULL CODE
DVT Prophylaxis: SCDs
Anticipated Discharge: 24 - 48 hours
Subjective/Interval History
-
Date of Service: November 11, 2025
Went to see patient at bedside
Feeling nauseous,no tremors or palpitations,denies hallucinations/delusions,SI or homicidal ideation
Objective Data
-
Labs:
Laboratory Results
11/11/25
06:52
WBC Pending
Hgb Pending
Hct Pending
Plt Count Pending
Sodium Pending
Potassium Pending
Chloride Pending
Carbon Dioxide Pending
BUN Pending
Creatinine Pending
Glucose Pending
Calcium Pending
Total Bilirubin Pending
AST Pending
ALT Pending
Alkaline Phosphatase Pending
Vital Signs:
Vital Signs
Temp Pulse Resp BP Pulse Ox
98.5 F 96 18 158/110 98
11/11/25 07:15 11/11/25 07:15 11/11/25 07:15 11/11/25 07:15 11/11/25 07:15
I&O
11/10/25 11/11/25 11/12/25
06:59 06:59 06:59
Intake Total 2720 / 2720 900 / 900
Balance 2720 / 2720 900 / 900
Review of Systems
-
Constitutional: Reports No Appetite
EENT: Reports No Symptoms Reported
Respiratory: Reports No Symptoms
Cardiac: Reports No Symptoms
Abdomen/GI: Reports Nausea
Breast: Reports No Symptoms
Genitourinary: Reports No Symptoms
Musculoskeletal: Reports Other (right ankle pain)
Skin: Reports No Symptoms
Neuro: Reports No Symptoms
Endocrine: Reports No Symptoms
Hematologic / Lymphatic: Reports No Symptoms
Allergy / Immunology: Reports No Symptoms
Physical Exam
-
General: Well Developed, Well Nourished and No Apparent Distress
HEENT: Normocephalic, Atraumatic and Moist Mucous Membranes
Respiratory: Clear to Auscultation; Negative Wheezes, Rales or Rhonchi
Cardiac: Regular Rhythm, S1/S2 and Tachycardic
GI: Soft, Nontender, Nondistended and Normal Bowel Sounds
Musculoskeletal: No Clubbing, No Cyanosis, No Edema and Other (Mild-Moderate pain in right ankle with weight bearing)
Skin: Warm and Dry
Neuro: Awake, AO x 3 and Nonfocal/Grossly Intact
Psych: Calm
[2025-11-11 09:03] LABS: Hematocrit 32.3 % (37.0-47.0); Hemoglobin 11.4 g/dL (12.0-16.0); Mean Corp Hgb Conc. 35.3 g/dL (33.0-37.0); Mean Corpuscular Volume 91.5 fL (81.0-99.0); Nucleated Red Blood Cells % 0 %; Red Cell Dist. Width 15.5 % (11.5-14.5)
[2025-11-11 09:05] LABS: Platelet Count 29 10^3/uL (130-400)
[2025-11-11 11:38] LABS: INR 1.01; PT 13.1 Sec (11.4-14.6)
[2025-11-11 11:56] LABS: ALT (SGPT) 88 U/L (0-35); AST (SGOT) 105 U/L (14-36); Albumin 3.7 g/dl (3.5-5.0); Alkaline Phosphatase 115 U/L (38-126); Calcium 8.9 mg/dl (8.4-10.2); Carbon Dioxide 27 mmol/L (22-30); Chloride 96 mmol/L (98-107); Estimated Creatinine Clearance 92 ml/min; Glucose 104 mg/dl (70-99); Magnesium 1.8 mg/dl (1.6-2.3); Potassium 3.7 mmol/L (3.5-5.1); Sodium 128 mmol/L (135-145); Total Protein 6.0 g/dl (6.3-8.2); eGFR > 60.00
[2025-11-11 12:11] LABS: Blood Urea Nitrogen < 2 mg/dl (7-17)
--- NOTE | 2025-11-11 13:56 | CM ---
Addendum entered by Rylie Mckeon 11/11/25 16:54:
Per Parth/TRICIA- patients sister will pay OOP costs for inpatient rehab.
Intake to be completed tomorrow.
Original Note:
Spoke with [id number] bedside.
TRICIA saw patient yesterday and she was not interested in inpatient.
Patients sister Destinee came to visit last evening and patient is now willing to go to inpatient treatment.
Parth updated, running insurance for admission to [facility] once medically stable. (was there before but different insurance).
TC to Destinee, she is relieved patient is now agreeable and had some questions re transportation. Will discuss with TRICIA.
CM to reach out to sister tomorrow.
Plan: inpatient alcohol treatment once medically stable and insurance auth obtained.
--- NOTE | 2025-11-11 14:36 | CM ---
CM spoke with Parth from [facility]. He met with patient this afternoon. He will meet with patient agian on 11/12 at 1pm to do telephone Intake with the [facility].
[2025-11-11] MEDS: ATIVAN 1 MG IV ×2 (15:13→21:05)
[2025-11-11] MEDS: NSS (PRESERVATIVE FREE) 0.5 ML IV ×2 (15:13→21:06)
--- NOTE | 2025-11-11 15:42 | W.PN.UPDATE ---
Update Note
Progress Note Update
reviewed chart and spoke to nursing. the patient once again refuses to talk to me. she says she just got herself 'into a good mood and talking will make me feel worse. ' she could not be persuaded. this is the third time she has refused to talk to
psych . i will try one more time tomorrow and if she refuses again we will sign off. noted high bp's texted dr velasco. patient did not appear to be tremulous or diaphoretic or agitated in any way. she spoke to me seemingly calmly or at any rate
there were no typical signs of anxiety or agitation. her heart rate is less than 100 afebrile. she is using ativan fairly regularly. she is taking lexapro 20 mg daily. could this be related to serotonin. since patient does not wish to see psych
i am not able to write an order but i will communicate this to hospitalist.
[2025-11-11] MEDS: APRESOLINE 5 MG IV (15:49)
--- NOTE | 2025-11-11 15:52 | PTCARENOTE ---
Addendum entered by Brittny Lopez RN 11/11/25 18:33:
Pt's B/P at 1700 149/103.
Original Note:
Pt's B/P all shift has been elevated. 158/110, 145/107(after am B/P meds) and presently 166/112. Dr. Barragan and Dr. Coffman aware. Hydralazine 5mg IV ordered and given.
[2025-11-11] MEDS: DESYREL 100 MG PO (22:18)
[2025-11-11] MEDS: REVIA 50 MG PO (22:18)
[2025-11-12] MEDS: NSS 1000 IV (03:10)
[2025-11-12] MEDS: NICORETTE 2 MG PO ×5 (03:29→22:20)
[2025-11-12 03:38] VITALS: BP 149/99
[2025-11-12 07:16] LABS: Hematocrit 33.5 % (37.0-47.0); Hemoglobin 11.6 g/dL (12.0-16.0); Mean Corp Hgb Conc. 34.6 g/dL (33.0-37.0); Mean Corpuscular Volume 94.6 fL (81.0-99.0); Platelet Count 110 10^3/uL (130-400); Red Cell Dist. Width 15.4 % (11.5-14.5)
[2025-11-12 07:25] LABS: ALT (SGPT) 72 U/L (0-35); AST (SGOT) 62 U/L (14-36); Albumin 3.5 g/dl (3.5-5.0); Alkaline Phosphatase 111 U/L (38-126); Blood Urea Nitrogen < 2 mg/dl (7-17); Calcium 9.0 mg/dl (8.4-10.2); Carbon Dioxide 27 mmol/L (22-30); Chloride 98 mmol/L (98-107); Estimated Creatinine Clearance 91 ml/min; Glucose 91 mg/dl (70-99); Magnesium 1.8 mg/dl (1.6-2.3); Potassium 3.6 mmol/L (3.5-5.1); Sodium 132 mmol/L (135-145); Total Protein 5.7 g/dl (6.3-8.2); eGFR > 60.00
--- NOTE | 2025-11-12 07:36 | W.PN.HOSP.TC ---
Addendum entered and electronically signed by Flaquito Barragan MD 11/12/25 21:04:
Attending Addendum-
I saw and evaluated the patient. I reviewed the resident�s note and agree with findings and plan as documented in the resident�s note. Sub: Feels improved symptomatically. Denies SI or HI. Still with poor appetite but improving. Denies
hallucinations or seizure activity. Full 12 point ROS reviewed and negative except as documented Exam: Vitals reviewed in chart GEN-NAD heart RRR no MRG lungs CTA B/L abd soft NT ND LE no edema Neuro-AAO x 3, mild tremor appreciated
Plan:
# Acute ETOH W/D secondary to AUD
- MSAS improved 1-2
- cont phenobarb with taper
- add clonidine prn for sxs control
- cont folate and high dose thiamine
- counselled re quitting, [facility] on board
- patient now amenable to IP rehab
# Apparent SI
-expressed SI to intake at IP rehab
-no SI expressed to team or psych
-appreciate psych input
# Hyponatremia- improving, cont IVF
# Hypomagnesemia-resolved s/p repletion
# Pancytopenia- from etoh abuse- repeat CBC In am, from BM suppression no indication for transfustion, CTM
# HTN- uncontrolled and partially reactive due to W/D, cont increased nifedipine XL and continue increased metoprolol
# Hypokalemia- resolved s/p replete, repeat BMP in am
# Transaminitis- secondary to etoh hepatitis-improving,cont IVF, repeat LFT in am, r/o acute viral hep-neg
# Depression/Anxiety- cont buspar, lexapro, and trazodone
# Prolonged QTc- repeat EKG reviewed avoid QTc prolonging meds as able, replete electrolytes aggressively
DVTp-SCDs
Code-FULL
Dispo- DC to IP ETOH rehab on Saturday when bed available
Time spent coordinating care, review of plan of care with resident, personally reviewed records in EMR, med rec, consults, notes, labs, radiology, d/w nursing CM and psych� 51 mins
Original Note:
Today's Communication/Plan
-
Continue to monitor platelet count, sodium, magnesium, potassium, liver enzymes
Msas and Rass
Needs Psych re-eval for suicidal ideation
Assessment / Plan
Assessment / Plan
Impression:
Patient is a 34-year-old female, admitted with acute alcohol withdrawal in setting of alcohol use disorder.Reports of suicidal ideation, prior to admission as per EMS report, currently denies any suicidal ideation. Poor compliance to Lexapro.
MSAS(1-3)
Rass(0-/+1)
Assessment/Plan:
- Acute alcohol withdrawal:
Patient presented with obvious physical signs of acute alcohol withdrawal. Patient presented with high risk of DTs. CIWA score of 15 on presentation.
Currently on phenobarbital taper protocol
Per Parth CLARKE patient evaluated by [facility] today for admission. security assessor reported that patient stated she was attempting to drink so much the day she was brought in that she would not wake up. She told them she does have suicidal
thoughts. TT to Psychiatrist. [facility] will not accept until after she is reevaluated by psychiatry and then at the earliest Saturday.
Continue MSAS and RASS scale
MSAS(1-3),RASS(0+/-1)
-Nausea:
Qtc currently 490
Still reports some nausea, consuming 80 to 100% of her meals since yesterday
Initiated trimethobenzamide 200 mg IV every 6 hours as needed for nausea and vomiting
-Hyponatremia
Most likely secondary to alcohol use and poor nutrition
urine osmolality and urine sodium low
serum osmolarity low
Most likely secondary to alcohol use.
Improved to 132, most likely due to improved intake, discontinue fluids
-Transaminitis
Most likely secondary to alcohol use
trending down-monitor
-Bicytopenia
Secondary to alcohol use
monitor
Platelet Count improved to 110
Type and cross match,transfuse if less than 20K or in case of obvious bleeding
-Suicidal Ideation:
Patient endorsed suicidal ideation prior to presentation as per EMS report.
Patient's Lexapro dose is managed by her primary care physician, currently on 20 mg
Psychiatry consulted for major depression with suicidal ideation-decreased lexapro to 10 mg trazodone to 50 mg and buspar to 10 mg tid.
-Hypokalemia and hypomagnesemia
Replete as needed
Qtc monitoring
Follow CMP
-Alcohol dependence: Unresolved
Patient would benefit from alcohol abstinence program.
refusing any inpatient services for now and wants to do home with resources and [facility] outpatient follow-up
- Right ankle pain
secondary to ankle sprain about 2 weeks ago
PT/OT
Use Tylenol as needed, and conservative measures
Use walker for ambulation
-Essential Hypertension
continue to monitor
continue home medications as able
CODE STATUS: FULL CODE
DVT Prophylaxis: SCDs
Anticipated Discharge: 24 - 48 hours
Subjective/Interval History
-
Date of Service: November 12, 2025
Patient seen and examined at bedside
Reports feeling better, still has nausea but has been able to tolerate diet, still feels tremulous
Denies any chest pain, palpitations, hallucinations, delusions, suicidal or homicidal ideations
She still does not want to talk to psych
Now wants to go to inpatient facility, when asked about discharge she said her birthday and she does not want to talk about it
Objective Data
-
Labs:
Laboratory Results
11/12/25
06:18
WBC 2.8 L
Hgb 11.6 L
Hct 33.5 L
Plt Count 110 L D
Sodium 132 L
Potassium 3.6
Chloride 98
Carbon Dioxide 27
BUN < 2 L
Creatinine 0.7
Glucose 91
Calcium 9.0
Total Bilirubin 0.2
AST 62 H
ALT 72 H
Alkaline Phosphatase 111
Vital Signs:
Vital Signs
Temp Pulse Resp BP Pulse Ox
97.6 F 79 18 149/99 98
11/12/25 03:38 11/12/25 03:38 11/12/25 03:38 11/12/25 03:38 11/12/25 03:38
I&O
11/11/25 11/12/25 11/13/25
06:59 06:59 06:59
Intake Total 2720 / 2720 3700 / 3700
Balance 2720 / 2720 3700 / 3700
Review of Systems
-
Constitutional: Reports Other (feels exhausted)
EENT: Reports No Symptoms Reported
Respiratory: Reports No Symptoms
Cardiac: Reports No Symptoms
Abdomen/GI: Reports Nausea
Breast: Reports No Symptoms
Genitourinary: Reports No Symptoms
Musculoskeletal: Reports No Symptoms
Skin: Reports No Symptoms
Neuro: Reports Tremors
Endocrine: Reports No Symptoms
Hematologic / Lymphatic: Reports No Symptoms
Allergy / Immunology: Reports No Symptoms
Psych: Reports Depressed
Physical Exam
-
General: No Apparent Distress, Comfortable and Conversant
HEENT: Normocephalic, Moist Mucous Membranes and Anicteric
Respiratory: Clear to Auscultation; Negative Wheezes, Rales or Rhonchi
Cardiac: Regular Rhythm, S1/S2 and Tachycardic
GI: Soft, Nontender, Nondistended and Normal Bowel Sounds
Musculoskeletal: No Clubbing, No Cyanosis and No Edema
Skin: Warm and Dry
Neuro: Awake, AO x 3 and Nonfocal/Grossly Intact
Psych: Calm
[2025-11-12 07:51] VITALS: BP 169/110
[2025-11-12 08:25] LABS: Absolute Neutrophils -Man Diff 1.4 10^3/uL (1.4-6.5)
[2025-11-12 08:26] LABS: Normal RBC Morphology Yes; Platelets Checked Yes; Total Cells Counted 100
[2025-11-12] MEDS: BUSPAR 15 MG PO (08:44)
[2025-11-12] MEDS: NICODERM TRANSDERMAL 21 MG TRANSDERM (08:44)
[2025-11-12] MEDS: LOPRESSOR 100 MG PO ×2 (08:45→19:48)
[2025-11-12] MEDS: FOLVITE 1 MG PO (08:45)
[2025-11-12] MEDS: LEXAPRO 20 MG PO (08:45)
[2025-11-12] MEDS: PROCARDIA XL (EXTENDED RELEASE) 60 MG PO (08:46)
[2025-11-12] MEDS: LUMINAL 64.8 MG PO ×2 (08:46→15:54)
[2025-11-12] MEDS: VITAMIN B-12 1000 MCG PO (08:46)
[2025-11-12] MEDS: ATIVAN 1 MG IV ×5 (08:52→19:52)
[2025-11-12] MEDS: VITAMIN B1 100 MG PO ×2 (09:37→19:48)
[2025-11-12 11:00] VITALS: BP 151/104
--- NOTE | 2025-11-12 12:55 | CON.MD ---
Addendum entered and electronically signed by Satish Sanders MD 11/12/25 14:41:
went back to talk to patient after cw texted me that patient had made a comment re si and that she was trying to kill herself with alcohol. she said she made a comment about not wanting to wake up but she did not mean not wake up and rather she
was talking about interrupted sleep and she was tired of falling asleep and waking up unable to fall back asleep which is common w alcohol use. she denied to me again that she is suicidal . she wants to get well, get sober and be with her kids.
Original Note:
Consultation - Medical
-
patient seen chart reviewed. spoke with nursing. consult done today nov 12 2025. the patient is a 35 year old woman known to me from prior admits to . when last seen in spring she was admitted w gi complaints but wound up with etoh wd
which was serious. there was some ? of sz. she at one point required precedex. she recovered sufficiently and was referred to [facility] where she remained for 30 days. she had been started on lexapro. she remained sober first told me 4
months then said three months then said 'sixty days' whereupon she 'celebrated' with a beer. this began a cycle some time later 'two beers to four beers to eight beers to ten to twelve to two many to count. she was admitted this time with a bal of
431. noted elevated transaminases. she had been taking lexapro 20 mg as well as buspar 15 tid trazodone 100 mg q hs naltrexone 50 mg q hs and adderall for adhd. she had reportedly expressed suicidal ideation which she denied in the er and denied
today (of note she refused to see psych for the first three days of her stay). today patient was tearful. she admitted she was thinking of her kids who are six and eight. she had been engaged with them since leaving [facility] 'when i am sober'. she
felt stressed trying to provide a nice environment for them when they were with her. (of note last admit their father who is not her h had left her and arranged for a nanny to care for the kids). patient has not been sleeping. appetite not great.
she was not attending any type of aftercare or therapy after [facility]. pcp prescribing. had not attended 12 step. nothing to suggest psychosis or bipolar. her depression she told me last time began in the post which does suggest to some
degree bipolarity
past psych hx see above patient has been in rehab though not in [facility] facility has been on several antidep inc zoloft and lexapro not clear they were helpful
medical hx see above bp is quite high and has been difficult to contain despite phenobarb detox and ativan as per msas. patient w eleva lft's dec sodium qtx 490 (there is note in record of hx qtc prolongation) hx breast aug abnormal lpap in
the past ?sz in etoh wd b12 def
family strong hx alcohol and drugs dementia father of heroin od
substance cigs etoh as above
social two kids ages 6 and 8 from their father. not working. lives in her own place currently
mse alert ox3 anxious and a little sweaty tears at times. speech and thought process normal no psychosis mood is depressed affect ok denies si aver intell insight judgment lacking
dx etoh use disorder severe unspecified depression
recommendation patient is agreeing to rehab and seeing [facility] to set up which is appropriate i am a little concerned w bp which is quite high despite efforts to treat etoh wd with phenobarb and ativan etc. ??related to serotinergic agents
possibly. patient not clear lexapro helpful. will decrease lexapro to 10 mg trazodone to 50 mg and buspar to 10 mg tid. all of these are quite serotinergic and not it seems very helpful given her presentation. advised patient that rehab is the
FIRST step. she needs care after dc perhaps iop, AA sponsor etc if she is to succeed with sobriety. will follow if still here tomorrow
--- NOTE | 2025-11-12 13:56 | CM ---
Addendum entered by Rylie Mckeon 11/12/25 15:17:
Met with patient bedside, sister in the room. Psychiatry was in to see patient.
Sister concerned re d/c to home over the weekend and patient needing inpatient alcohol rehab.
TC to Parth from [facility], sent him updated psychiatry notes denying SI. He will contact [facility] and see if they will reconsider admission.
Addendum entered by Rylie Mckeon 11/12/25 14:17:
Nursing updated.
Original Note:
Per Parth from [facility] patient evaluated by [facility] today for admission. drop shipment clerk reported that patient stated she was attempting to drink so much the day she was brought in that she would not wake up. She told them she does have suicidal
thoughts. TT to Psychiatrist. [facility] will not accept until after she is reevaluated by psychiatry and then at the earliest Saturday.
[2025-11-12 15:00] VITALS: BP 168/108
[2025-11-12] MEDS: BUSPAR 10 MG PO ×2 (15:54→22:19)
[2025-11-12] MEDS: LEXAPRO 10 MG PO (15:54)
--- NOTE | 2025-11-12 17:38 | W.PN.UPDATE ---
Update Note
Progress Note Update
spoke nicole jansen who told me again patient made comments to hailee about si. returned yet again to double check. she maintains adamantly that she did not mean to imply si. she just needed to get one nights sleep without waking continually and said that
she is NOT suicidal. reiterated her wish for treatment and sobriety
[2025-11-12] MEDS: NSS IV (18:33)
[2025-11-12] MEDS: APRESOLINE 5 MG IV (21:19)
[2025-11-12] MEDS: DESYREL 50 MG PO (22:19)
[2025-11-12] MEDS: LUMINAL 32.4 MG PO (22:20)
[2025-11-12] MEDS: REVIA 50 MG PO (22:20)
[2025-11-12 22:25] VITALS: BP 140/94
[2025-11-13] MEDS: NICORETTE 2 MG PO ×5 (03:59→16:21)
[2025-11-13 06:14] LABS: Hematocrit 33.7 % (37.0-47.0); Hemoglobin 11.9 g/dL (12.0-16.0); Mean Corp Hgb Conc. 35.3 g/dL (33.0-37.0); Mean Corpuscular Volume 93.6 fL (81.0-99.0); Platelet Count 135 10^3/uL (130-400); Red Cell Dist. Width 15.5 % (11.5-14.5)
[2025-11-13 06:32] LABS: ALT (SGPT) 68 U/L (0-35); AST (SGOT) 54 U/L (14-36); Albumin 3.7 g/dl (3.5-5.0); Alkaline Phosphatase 110 U/L (38-126); Blood Urea Nitrogen < 2 mg/dl (7-17); Calcium 9.2 mg/dl (8.4-10.2); Carbon Dioxide 27 mmol/L (22-30); Chloride 97 mmol/L (98-107); Estimated Creatinine Clearance 91 ml/min; Glucose 90 mg/dl (70-99); Magnesium 1.7 mg/dl (1.6-2.3); Potassium 3.4 mmol/L (3.5-5.1); Sodium 131 mmol/L (135-145); Total Protein 6.0 g/dl (6.3-8.2); eGFR > 60.00
[2025-11-13 07:00] VITALS: BP 140/99
[2025-11-13 07:06] LABS: Nucleated Red Blood Cells % 0 %
[2025-11-13] MEDS: NICODERM TRANSDERMAL 21 MG TRANSDERM (07:09)
[2025-11-13] MEDS: VITAMIN B1 100 MG PO (07:10)
[2025-11-13] MEDS: PROCARDIA XL (EXTENDED RELEASE) 60 MG PO (07:10)
[2025-11-13] MEDS: VITAMIN B-12 1000 MCG PO (07:10)
[2025-11-13] MEDS: BUSPAR 10 MG PO ×2 (07:10→15:09)
[2025-11-13] MEDS: LEXAPRO 10 MG PO (07:11)
[2025-11-13] MEDS: LOPRESSOR 100 MG PO (07:11)
[2025-11-13] MEDS: LUMINAL 32.4 MG PO ×2 (07:11→15:09)
[2025-11-13] MEDS: FOLVITE 1 MG PO (07:11)
[2025-11-13] MEDS: ATIVAN 1 MG IV ×4 (07:21→16:22)
--- NOTE | 2025-11-13 10:25 | CM ---
Addendum entered by Shanice Gilmore 11/13/25 14:14:
Patient to transfer to [facility] today, 5pm pick up operator.
Original Note:
assistant community manager reached out to [facility] and spoke with Parth, [facility] are willing to talk to patient today, they have been trying to contact patient, pillowcase maker provided patient with the number to admissions at [facility] [phone],
and faxed over updated psychiatric note from yesterday.
Plan; [facility] pending approval.
--- NOTE | 2025-11-13 12:51 | W.PN.HOSP.TC ---
Today's Communication/Plan
-
d/c
Assessment / Plan
Assessment / Plan
Pt seen and examined with LYDIA Fox present at bedside for the entirety of the interview and physical exam:
Gen: NAD, AAOx3.
Eyes: EOMI, PERRLA, no scleral icterus.
Neck: supple.
CV: RRR, +S1/S2, no m/r/g.
Resp: CTAB, no rales, wheezes, or rhonchi.
Skin: No rashes.
Neuro: CN 2-12 intact, non-focal.
Psych: Normal mood and affect.
Impression:
Patient is a 34-year-old female, admitted with acute alcohol withdrawal in setting of alcohol use disorder.Reports of suicidal ideation, prior to admission as per EMS report, currently denies any suicidal ideation. Poor compliance to Lexapro.
MSAS(1-3)
Rass(0-/+1)
Assessment/Plan:
- Acute alcohol withdrawal:
Patient presented with obvious physical signs of acute alcohol withdrawal. Patient presented with high risk of DTs. CIWA score of 15 on presentation.
Currently on phenobarbital taper protocol
Per Parth CLARKE patient evaluated by [facility] today for admission. automatic oven operator reported that patient stated she was attempting to drink so much the day she was brought in that she would not wake up. She told them she does have suicidal
thoughts. TT to Psychiatrist. [facility] will not accept until after she is reevaluated by psychiatry and then at the earliest Saturday.
Continue MSAS and RASS scale
MSAS(1-3),RASS(0+/-1)
-Nausea:
Qtc currently 490
Still reports some nausea, consuming 80 to 100% of her meals since yesterday
Initiated trimethobenzamide 200 mg IV every 6 hours as needed for nausea and vomiting
-Hyponatremia
Most likely secondary to alcohol use and poor nutrition
urine osmolality and urine sodium low
serum osmolarity low
Most likely secondary to alcohol use.
Improved to 132, most likely due to improved intake, discontinue fluids
-Transaminitis
Most likely secondary to alcohol use
trending down-monitor
-Bicytopenia
Secondary to alcohol use
monitor
Platelet Count improved to 110
Type and cross match,transfuse if less than 20K or in case of obvious bleeding
-Suicidal Ideation:
Patient endorsed suicidal ideation prior to presentation as per EMS report.
Patient's Lexapro dose is managed by her primary care physician, currently on 20 mg
Psychiatry consulted for major depression with suicidal ideation-decreased lexapro to 10 mg trazodone to 50 mg and buspar to 10 mg tid.
-Hypokalemia and hypomagnesemia
Replete as needed
Qtc monitoring
Follow CMP
-Alcohol dependence: Unresolved
Patient would benefit from alcohol abstinence program.
refusing any inpatient services for now and wants to do home with resources and [facility] outpatient follow-up
- Right ankle pain
secondary to ankle sprain about 2 weeks ago
PT/OT
Use Tylenol as needed, and conservative measures
Use walker for ambulation
-Essential Hypertension
continue to monitor
continue home medications as able
CODE STATUS: FULL CODE
DVT Prophylaxis: SCDs
11/13 UPDATE: No new complaints. Has completed phenobarbital taper for alcohol withdrawal. Labs reviewed and patient received 40 mill equivalents of potassium for hypokalemia. Pt has placement as of this afternoon.
Total time spent on d/c = 31 min. This included today's physical exam, progress note, review of laboratory and diagnostic data, preparation of discharge documents and prescriptions, and discussions about the pt's hospital course and discharge plan
with the patient and other medical technologist chemistry involved in the patient's care.
Anticipated Discharge: Today
Subjective/Interval History
-
Date of Service: November 13, 2025
Denies diaphoresis or anxiety. No new complaints.
Objective Data
-
Labs:
Laboratory Results
11/13/25
05:28
WBC 2.7 L
Hgb 11.9 L
Hct 33.7 L
Plt Count 135 D
Sodium 131 L
Potassium 3.4 L
Chloride 97 L
Carbon Dioxide 27
BUN < 2 L
Creatinine 0.7
Glucose 90
Calcium 9.2
Total Bilirubin 0.2
AST 54 H
ALT 68 H
Alkaline Phosphatase 110
Vital Signs:
Vital Signs
Temp Pulse Resp BP Pulse Ox
97.6 F 83 16 140/99 99
11/13/25 07:00 11/13/25 07:00 11/13/25 07:00 11/13/25 07:00 11/13/25 07:00
I&O
11/12/25 11/13/25 11/14/25
06:59 06:59 06:59
Intake Total 3700 / 3700 960 / 1920 960 / 960
Balance 3700 / 3700 960 / 1920 960 / 960
[2025-11-13] MEDS: KCL 40 MEQ PO (13:20)
[2025-11-13 15:00] VITALS: BP 157/104
--- NOTE | 2025-11-13 21:27 | W.DCSUMMARY ---
Discharge Summary
Discharge Data
Date of Admission: 11/07/25
Date of Discharge: 11/13/25
-
Pending Results: No
Hospital Course
Discharging Physician :
luis Coe
Disposition :
Home
Primary care physician :
Carla Mittal
Principal Discharge diagnosis :
Acute alcohol withdrawal
Chronic Discharge diagnosis :
Chronic seasonal allergic rhinitis,
ERICH (generalized anxiety disorder)
Benzodiazepine dependence,
Sinus tachycardia
ADHD (attention deficit hyperactivity disorder),
Essential (primary) hypertension
Pain in extremity,
Ex-smoker (now vapes)
Insomnia
Partial symptomatic epilepsy with complex partial seizures, not intractable, without status epilepticus
Alcohol use disorder
Hospital Course :
Patient brought to ER by EMS services for acute alcohol withdrawal and suicidal ideation.Patient started on Phenobarbital taper,completed during the hospital stay.She did report suicidal ideation to EMS services but thereafter did nor report any
suicidal ideation.She remained without hallucinations,delusions,homicidal and suicidal ideation.Psych evaluated and adjusted the medication regimen. Discussed with patient the need for resources and provided with information about both inpatient and
outpatient rehab services.
Her blood pressure meds were increased due to consistently high blood pressures and metoprolol dose was increased as well,follow up with PCP.
Patient stable at the time of discharge with MSAS (1-3), RASS(0+-1),hemodynamically and vitally optimized.
Walker provided for right ankle sprain
Discharge Plan
-
Patient Disposition: Home (Routine Discharge)
Discharge Diagnosis/Procedures: Acute alcohol withdrawal
Condition: Fair
Diet: Regular
Driving Restrictions: As prior to admission
Bathing Restrictions: OK to Shower
Referrals:
Kyrie Aguirre DO [Family Provider, Family Practice] - in less than 1 week
Prescriptions:
New
folic acid 1 mg Tablet
1 mg PO DAILY 30 Days Qty: 30 0RF
thiamine mononitrate (vit B1) 100 mg Tablet
100 mg PO BID 30 Days Qty: 60 0RF
metoprolol tartrate 100 mg Tablet
100 mg PO BID Qty: 0 0RF
buspirone 10 mg Tablet
10 mg PO TID Qty: 0 0RF
nifedipine 60 mg Tablet Extended Release
60 mg PO DAILY Qty: 1 0RF
escitalopram oxalate 10 mg Tablet
10 mg PO DAILY Qty: 1 0RF
(DME) Rolling walker
See Rx Instructions .ROUTE .MEDSUPPLY Qty: 1 0RF
Rx Instructions:
As directed
Continued
norethindrone-e.estradiol-iron [Sera Fe 1.5/30 (28)] 1.5 mg-30 mcg (21)/75 mg (7) Tablet
1 tab PO DAILY
naltrexone 50 mg Tablet
50 mg PO HS
cyanocobalamin (vitamin B-12) [Vitamin B-12] 1,000 mcg Tablet
1,000 mcg PO DAILY
hydroxyzine HCl 50 mg Tablet
50 mg PO QIDPRN PRN (Reason: anxiety)
trazodone 100 mg Tablet
100 mg PO HS
biotin 2,500 mcg Tablet,Chewable
2,500 mcg PO DAILY
dextroamphetamine-amphetamine 10 mg capsule,extended release 24hr
2 cap PO DAILY
Discontinued
nifedipine 30 mg tablet extended release 24hr
30 mg PO DAILY
metoprolol tartrate 50 mg Tablet
50 mg PO BID
buspirone 15 mg Tablet
15 mg PO TID
escitalopram oxalate [Lexapro] 20 mg Tablet
20 mg PO DAILY
Discharge Orders:
Discharge Patient (As Directed); Ordered 11/13/25
Ordered By: Luis Coe
Discharge Date and Time
Discharge Date/Time: 11/13/25 17:27
Print Language: [place]
== END 2025-11-13 17:27 | disposition home or self-care (01) | DRG 897 ==
LOC: 4 WEST ACU 17:37
PROVIDERS: Emergency Medicine; Family Medicine; ADMITTING PHYSICIAN Internal Medicine; ATTENDING PHYSICIAN Internal Medicine; CONSULT PHYSICIAN Psychiatry & Neurology Psychiatry; EMERGENCY PHYSICIAN Student in an Organized Health Care Education/Training Program; FAMILY PHYSICIAN Family Medicine; OTHER PHYSICIAN Psychiatry & Neurology Psychiatry
DX: F10.231 Alcohol dependence with withdrawal delirium (principal); E87.1 Hypo-osmolality and hyponatremia; D61.818 Other pancytopenia; R45.851 Suicidal ideations; Z87.891 Personal history of nicotine dependence; I10 Essential (primary) hypertension; E87.6 Hypokalemia; F32.A Depression, unspecified; E86.0 Dehydration; Y90.8 Blood alcohol level of 240 mg/100 ml or more
CPT/HCPCS: 80048; 80053; 82077; 82248; 83690; 83735; 83930; 83935; 84300; 84443; 84703; 85025; 85027; 85610; 86706; 86708; 86803; 86850; 86900; 86901; 87340; 93005; 96361; 96374; 96375; 97163; 97166; 99285